=== PATIENT | female | born 1970 | race African-American/Black ===

== ENCOUNTER 2016-06-14 19:36 | Inpatient (IN) | payer OTHER ==
[~2016-06-14] VITALS: Ht 149.9 cm; Wt 55.8 kg
--- NOTE | ~2016-06-14 | S ---
[facility] [place] [address] SURGICAL PATH RPT PROCEDURE Name: CHARIS FISHER Room #: 418-P ADM IN M.R.#: [id number] Admission: 06/16/16 Date of : 72 Discharge: Report #: [id number] Path Case #: [id number] PATHOLOGY REPORT COLLECTION DATE: 06/16/2016 RECEIVED DATE: 06/18/2016 SUBMITTING PHYS: Dr. Paul Abreu OTHER PHYS: Dr. Patrick Martell SPECIMEN(S) RECEIVED: A.Small bowel B.Gastric bx * * * * * * * * * * * * FINAL DIAGNOSIS: A. Small intestine mucosa "small bowel biopsy": - Predominantly duodenal mucosa with prominent Jared's glands. - There is no evidence of acute cryptitis, granulomas, adenomatous change or malignancy. B. Gastric mucosa, "gastric biopsy": - Mild chronic reactive gastropathy. - The immunoperoxidase stain for Helicobacter pylori is negative. (SHA:neida; d/t: 06/21/2016) PATHOLOGIST: Nas Kelsey M.D. REPORT ELECTRONICALLY SIGNED BY: Nas Kelsey M.D. DATE/TIME: 06/21/2016 14:14 * * * * * * * * * * * * GROSS PATHOLOGY: A. Received in formalin labeled "Charis Fisher, small bowel biopsy," are 2 segments of camacho soft tissue measuring 0.6 x 0.4 x 0.2 cm in aggregate dimensions and ranging from 0.4 to 0.5 cm in maximum dimension. The specimen is submitted entirely in cassette A1. B. Received in formalin labeled "Charis Fisher, gastric biopsy," are 2 segments of camacho soft tissue measuring 0.4 x 0.3 x 0.2 cm in aggregate dimensions and ranging from 0.3 to 0.4 cm in maximum dimension. The specimen is submitted entirely in cassette B1. (KAH; 06/18/2016) CLINICAL HISTORY: Pre-op diagnosis: Vomiting Post-op diagnosis: Gastritis [address] [address] SURGICAL PATH RPT PROCEDURE Name: CHARIS FISHER Room #: 418-P ADM IN M.R.#: [id number] Admission: 06/16/16 Date of : 72 Discharge: Report #: [id number] Path Case #: [id number] INITIAL CPT CODE(S): A; 75423 B; 56247, 13993 Professional services performed by [facility] at [address], [place] [address] Technical services performed by [facility] at [address] [place] [address], [facility] [address] [address]. [facility] [address] [place] [address] PHONE: [phone] DIRECTOR: Don Gordon M.D. * * * END OF REPORT * * *
--- NOTE | ~2016-06-14 | EKG ---
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 : 1970 Requested By: Robert Hogan Order Number: [id number] MD: Kevin Stone Measurements Intervals Wisner Rate: 121 P: 59 DC: 139 QRS: 34 QRSD: 85 T: 38 QT: 317 QTc: 450 Interpretive Statements Sinus tachycardia Borderline low voltage, extremity leads Baseline wander in lead(s) V6 Compared to ECG 06/14/2016 20:20:26 No significant changes Electronically Signed On 06-29-2016 8:48:01 CDT by Kevin Stone [email or web address] <ELECTRONICALLY SIGNED> By: Kevin Stone MD, [facility] 06/29/16 0848 8 8 Kevin Stone MD, [facility] /EPI
--- NOTE | ~2016-06-14 | H ---
[facility] [place] [address] HISTORY AND PHYSICAL Name: EVERTON ROMAN [facility]: 426[facility] [id number] Admission: 06/14/16 Attend Phys: Robert Hogan MD Discharge: Date of : 72 Report #: [id number] THIS REPORT FOR: //name// CC: Robert Nguyen [facility] DATE OF SERVICE: 06/15/2016 ATTENDING PHYSICIAN: Robert Hogan M.D. PRIMARY CARE PHYSICIAN: None. CHIEF COMPLAINT: Abdominal pain and back pain. HISTORY OF PRESENT ILLNESS: The patient is a 46-year-old -[place] female who came into the ER complaining of generalized pain and low back pain. This has been going on for about 2 days. She says it feels like a "vice" around her lower back. Her pain got worse today after she went to dialysis. She had not taken her regularly prescribed tramadol and Neurontin today. She says her pain is worse when she stands up and takes a deep breath. She is a diabetic and her blood sugar was 384 at home. She also has known gastroparesis. She denies any vomiting, denies any diarrhea. Denies any recent cough, congestion, fevers or chills. She did complete her dialysis today. She came into the ER with these complaints and was given a dose of Dilaudid as well as Ativan. She is currently somewhat sedated and difficult to keep awake during the assessment. Even though she is very sleepy, she still rates her pain 8/10, and continues to state that this pain is worse than her chronic pain. She was noted in the ER to have elevated potassium and is currently receiving hemodialysis. PAST MEDICAL HISTORY: Diabetes type 1; hypertension; anemia; end-stage renal disease, on hemodialysis on Mondays, Wednesdays and Fridays; peripheral neuropathy and gastroparesis. PAST SURGICAL HISTORY: Fistula placement and bilateral tubal ligation. ALLERGIES: PENICILLIN, ASPIRIN AND IODINE. HOME MEDICATIONS: Robaxin 1 to 2 tabs q.i.d. p.r.n., Lipitor 10 mg daily, carvedilol 12.5 mg b.i.d., amlodipine 5 mg daily, lisinopril 20 mg daily, [facility] 5/325 one tab q. 4 hours p.r.n., tramadol 50 mg q. 6 hours p.r.n., Neurontin 100 mg t.i.d., omeprazole 20 mg daily, Reglan 10 mg a.c. and at bedtime, Levemir insulin 4 units at bedtime and NovoLog insulin 3 units with meals. SOCIAL HISTORY: The patient lives at home with her spouse. She denies any tobacco, alcohol or drug use. [address] [address] HISTORY AND PHYSICAL Name: EVERTON ROMAN Room #: 426-P [facility] M.R.#: [id number] Admission: 06/14/16 Attend Phys: Robert Hogan MD Discharge: Date of : 72 Report #: [id number] FAMILY HISTORY: Positive for diabetes and end-stage renal disease in her mother. REVIEW OF SYSTEMS: At one point, LES inhibitors were listed as an allergy, and it looks like she had an admission here, in which she was treated for what was felt to be angioedema. They thought this was LES inhibitor related, so she was taken off lisinopril; however, when the measuring clerk saw the patient, they did not think angioedema was the case, rather volume overload was considered the possibly etiology. She was dialyzed and her swelling did improve. For some reason, LES inhibitor is still listed as an allergy, but in review her home medications, she has been on lisinopril and states she has not been having any problems. All other 12-point review of systems were reviewed with the patient and otherwise negative unless stated in the HPI. PHYSICAL EXAMINATION: GENERAL: The patient is a very sleepy female in no acute distress. VITAL SIGNS: Temperature 98.4, heart rate 105, respirations 20, blood pressure is 192/122 and oxygen is 99% on 2 liters. HEENT: PERRLA. Sclerae are nonicteric. Oral mucosa is pink and moist. NECK: Supple, no JVD noted. CARDIOVASCULAR: Normal S1 and S2. No murmurs, rubs or gallops. RESPIRATORY: Breath sounds are clear bilaterally. No wheezing or rhonchi. Breathing is nonlabored. ABDOMEN: Soft and nondistended. She was very tender in the epigastric area to palpation. Bowel sounds are positive. VASCULAR: Bilateral ankle edema 1+. Pedal pulses are 2+. NEUROLOGIC: The patient is very sleepy, she arouses easily, but dozes off multiple times throughout the assessment and has difficulty staying awake. She will follow some commands and is able to move all extremities equally. No focal weakness noted. Her fistula has good bruit and thrill. LABORATORY DATA AND DIAGNOSTICS: WBC is 4.7, hemoglobin 11.3 and platelets 296. Sodium 132, potassium 6.9, BUN 32, creatinine 4.4 and glucose 186. Magnesium is 2.4. INR 1.1. AST is 216, ALT is 151 and alkaline phosphatase is 253. Cardiac enzymes are negative. BNP is 4598. EKG showing sinus tachycardia. Chest x-ray showed improved inspiration with moderate clearing of both bases since prior study. There is no acute process. There is a large amount of stool present suggesting constipation. ASSESSMENT AND PLAN: 1. Abdominal pain. The patient does have epigastric tenderness with elevated liver enzymes. There is concern that she may have some gallbladder pathology. We will check an abdominal ultrasound in the morning. She also has severe gastroparesis, maybe some stomach irritation. Continue with Reglan and add Pepcid b.i.d. She is also noted to have constipation per x-ray, and we will provider some MiraLax. [address] [address] HISTORY AND PHYSICAL Name: EVERTON ROMAN Room #: 426-P [facility] Theresa Og#: [id number] Admission: 06/14/16 Attend Phys: Robert Hogan MD Discharge: Date of : 72 Report #: [id number] 2. Hyperkalemia likely due to lisinopril use. We will discontinue lisinopril. She is currently receiving hemodialysis. Follow labs. 3. End-stage renal disease. Continue with hemodialysis per Renal. 4. Diabetes type 1. Add sliding scale insulin. Check blood sugars a.c. and at bedtime. 5. Transaminitis. Check a hepatitis panel and an abdominal ultrasound to further evaluate. 6. Hypertension. Blood pressure is improving with hemodialysis. 7. Deep venous thrombosis prophylaxis, place sequential compression devices. We will continue to follow the patient closely throughout the hospitalization and make changes based on clinical status. <ELECTRONICALLY SIGNED> By: SUSIE Mcgee 06/16/16 0615 0340 0501 SUSIE Mcgee /nt
--- NOTE | ~2016-06-14 | EKG ---
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 : 1970 Requested By: Jim Martell Order Number: [id number] MD: Kevin Stone Measurements Intervals Munger Rate: 103 P: 71 [place]: 146 QRS: 36 QRSD: 81 T: 60 QT: 345 QTc: 452 Interpretive Statements Sinus tachycardia otherwise no significant abnormality Compared to ECG 09/16/2015 11:02:05 Poor R-wave progression no longer present Electronically Signed On 06-15-2016 8:50:32 CDT by Kevin Stone [email or web address] <ELECTRONICALLY SIGNED> By: Kevin Stone MD, [facility] 06/15/16 0850 19 19 Kevin Stone MD, [facility] /EPI
--- NOTE | ~2016-06-14 | S ---
[facility] [place] [address] SURGICAL PATH RPT PROCEDURE Name: CHARIS ROMAN Room #: 240-P ADM IN M.R.#: [id number] Admission: 06/16/16 Date of : 72 Discharge: Report #: [id number] Path Case #: [id number] PATHOLOGY REPORT COLLECTION DATE: 06/25/2016 RECEIVED DATE: 06/25/2016 SUBMITTING PHYS: Dr. Madhavi Vargas OTHER PHYS: Dr. Edison Jones SPECIMEN(S) RECEIVED: A.Liver bx x3 * * * * * * * * * * * * FINAL DIAGNOSIS: Liver, needle core biopsy: - Mild congestion of zone 3 and focal subtle nodular regenerative hyperplasia without atypia. - Collagenization of zone 3 vessels as well as a few sinusoidal spaces. - Mild mixed portal chronic inflammation with rare eosinophils. COMMENT: Overall, the zone 3 congestion identified is suggestive of passive congestion of the liver. Significant atrophic changes are not identified in zone 3. There is mild subtle nodular regenerative hyperplasia without atypia identified. This may be due to the history of type I diabetes, or the congested liver parenchyma. Collagenization of the veins in zone 3 along with the sinusoidal spaces is identified and is compatible with the provided history of type I diabetes as well. Rare glycogenated nuclei are identified scattered within the hepatic parenchyma. There is no evidence of steatosis present. Mild mixed nonspecific portal chronic inflammation with occasional eosinophils is identified. This may be due to multiple medications in use. Bile ductular proliferation is not identified. There is no predominance of plasma cells identified. Concentric biliary duct hypertrophy or florid-duct lesions are not present. Trichrome special stain fails to show significant periportal, or perisinusoidal fibrosis. Reticulin stain shows foci of thickened hepatic plates as well as findings suggestive of focal mild nodular regenerative hyperplasia. Iron stain shows 1-2+ granular staining within the sinusoidal lining cells, consistent with passive congestion. PAS with and without diastase shows collagenization of the vessels as well as Kupffer cell macrophages compatible with ongoing injury. Clinical correlation is suggested. (IUV:csd; d/t: 06/29/2016) [address] [address] SURGICAL PATH RPT PROCEDURE Name: CHARIS ROMAN Room #: 240-P [facility] IN M..#: [id number] Admission: 06/16/16 Date of : 72 Discharge: Report #: [id number] Path Case #: [id number] PATHOLOGIST: Maryann Calzada M.D. REPORT ELECTRONICALLY SIGNED BY: Maryann Calzada M.D. DATE/TIME: 06/29/2016 16:30 * * * * * * * * * * * * GROSS PATHOLOGY: Received in formalin labeled "Charis Tobinbandar, liver biopsy 3," are 3 distinct needle cores of camacho soft tissue ranging from 1.2 to 1.9 cm in length, which are submitted entirely in cassette A1. (KAH; 06/25/2016) CLINICAL HISTORY: Type 1 diabetes, hypertension, end stage renal disease, on hemodialysis several days a week, along with peripheral neuropathy and gastroparesis. Medications include Lipitor, amlodipine amongst others, denies any tobacco, alcohol or drug use, elevated AST, ALT and alk phos along with GGT, BNP elevated, epigastric tenderness noted, hyperkalemia. INITIAL CPT CODE(S): A; 77099, 59017, 38663, 99066, 47120, 512[address] Professional services performed by [facility] at [facility] [address], [place] [address] Technical services performed by [facility] at [address] [place] [address], [address], [place] [address]. [facility] [address] [place] [address] PHONE: [phone] DIRECTOR: Don Gordon M.D. * * * END OF REPORT * * *
--- NOTE | ~2016-06-14 | 2DMMODE ---
[facility] [address] [facility] [place] [address] 2 D/M-MODE ECHOCARDIOGRAM Name: EVERTON ROMAN Room #: 240-P ADM IN M.R.#: [id number] Admission: 06/16/16 Attend Phys: Kentrell Lizarraga Discharge: Date of : 72 Date of Service: 06/29/16 1725 Report #: [id number] THIS REPORT FOR: //name// APPROVED REPORT Study performed: 06/29/2016 14:42:53 EXAM: Comprehensive 2D, Doppler, and color-flow Echocardiogram Patient Location: Bedside Room #: 240 Blood Pressure: 133/98 mmHg HR: 102 bpm Rhythm: Tachycardia Other Information Study Quality: Adequate Indications LV function, PHTN. Hx: end stage renal disease, DM, HTN 2D Dimensions RVDd: 34.58 mm LVEF(%): 55.27 (>50%) IVSd: 10.75 (7-11mm) LVOT Diam: 18.85 (18-24mm) LVDd: 38.74 mm PWd: 11.86 (7-11mm) Ascending Aorta: 24.82 mm LVDs: 27.79 (25-40mm) Aortic Root: 28.55 mm Gotti's LVEF: 55.27 % Volumes Left Atrial Volume (Systole) Single Plane 4CH: 30.65 mL Single Plane 2CH: 45.06 mL LA ESV Index: 26.00 mL/m2 Aortic Valve AoV Peak Robert.: 1.52 m/s AO Peak Gr.: 9.21 mmHg LV Max P.55 mmHg LV Max: 1.07 m/s Mitral Valve E/A Ratio: 1.0 MV Decel. Time: 188.38 ms MV E Max Robert.: 1.05 m/s [facility] [place] [address] 2 D/M-MODE ECHOCARDIOGRAM Name: EVERTON ROMAN Room #: 240-P ADM IN M.R.#: [id number] Admission: 06/16/16 Attend Phys: Kentrell Lizarraga Discharge: Date of : 72 Date of Service: 06/29/16 1725 Report #: [id number] MV A Robert.: 1.00 m/s MV PHT: 54.63 ms Pulmonary Valve PV Peak Robert.: 1.10 m/s PV Peak Gr.: 4.84 mmHg Pulmonary Vein P Vein S: 71.8 m/s P Vein D: 63.7 m/s Tricuspid Valve TR Peak Robert.: 2.36 m/s RAP Estimate: 5.00 mmHg TR Peak Gr.: 22.33 mmHg RVSP: 27.00 mmHg Left Ventricle The left ventricle is normal size. There is normal LV segmental wall motion. Mild concentric left ventricular hypertrophy. Left ventricular systolic function is normal. LVEF is 55-60%. The left ventricular diastolic function is normal. Right Ventricle The right ventricle is normal size. The right ventricular systolic function is normal. Atria The left atrium size is normal. The right atrium size is normal. Aortic Valve The aortic valve is normal in structure. No aortic regurgitation is present. There is no aortic valvular stenosis. Mitral Valve The mitral valve is normal in structure. Trace mitral regurgitation. No evidence of mitral valve stenosis. Tricuspid Valve The tricuspid valve is normal in structure. There is trace tricuspid regurgitation. The right atrial pressure is estimated at 5 mmHg. Estimated pulmonary artery pressure is 27mmHg. Pulmonic Valve The pulmonary valve is normal in structure. Trace pulmonic regurgitation. Great Vessels [facility] [address] [place] [address] 2 D/M-MODE ECHOCARDIOGRAM Name: EVERTON ROMAN Room #: 240-P ADM IN M.R.#: [id number] Admission: 06/16/16 Attend Phys: Kentrell Lizarraga Discharge: Date of : 72 Date of Service: 06/29/16 1725 Report #: [id number] The aortic root is normal in size. The ascending aorta is normal in size. IVC is normal in size and collapses >50% with inspiration. Pericardium There is no pericardial effusion. <Conclusion> The left ventricle is normal size. Mild concentric left ventricular hypertrophy. LVEF is 55-60%. The aortic valve is normal in structure. The mitral valve is normal in structure. Trace mitral regurgitation. There is trace tricuspid regurgitation. The right atrial pressure is estimated at 5 mmHg. Estimated pulmonary artery pressure is 27mmHg. Trace pulmonic regurgitation. <ELECTRONICALLY SIGNED> By: Jude Hernandez MD 06/29/161724 24 24 Jude Hernandez MD /INF
--- NOTE | ~2016-06-14 | HC ---
[facility] [place] [address] CONSULTATION Name: ABELEVERTON Room #: 240-P ADM IN M.R.#: [id number] Admission: 06/16/16 Attend Phys: Robert Hogan MD Discharge: Date of : 72 Report #: [id number] THIS REPORT FOR: //name// CC: Robert Kauffman DATE OF SERVICE: 06/24/2016 CHIEF COMPLAINT: Abdominal pain. HISTORY OF PRESENT ILLNESS: The patient is a 46-year-old -H[place]ian female with extensive past medical history who was admitted recently to [facility]. She has a history of end-stage renal disease on hemodialysis, poorly controlled diabetes mellitus, hypertension, gastroparesis, and peripheral neuropathy. She has been extensively evaluated by gastroenterology and has transaminitis of unclear etiology. She has been on Reglan with some improvement in her gastroparesis. No known history of hepatitis and recent workup for hepatitis was negative. She has had previous admissions for diabetic ketoacidosis. This does not appear to be a problem at this time. She has known history of gallstones. General Surgery was consulted to evaluate whether biliary colic or biliary dyskinesia may be an issue and whether cholecystectomy might be advantageous for the patient. PAST MEDICAL HISTORY: As described above. Positive for hypertension, end-stage renal disease, on hemodialysis; chronic anemia, peripheral neuropathy, gastroparesis, and diabetes. PAST SURGICAL HISTORY: Positive for tubal ligation, left upper extremity AV access for hemodialysis, and EGD on 07/14/2015, showed a normal esophagus, residual food in the stomach, multiple duodenal ulcers, biopsies negative for H. pylori. ALLERGIES: Include LES INHIBITORS, AMOXICILLIN, ASPIRIN, and BETADINE. MEDICATIONS: Include insulin Levemir, NovoLog, tramadol, lisinopril, atorvastatin, gabapentin, Reglan, Coreg, amlodipine, omeprazole, hydrocodone, methocarbamol, heparin IV after dialysis, MiraLax 17 g daily, Clonidine, and lorazepam. REVIEW OF SYSTEMS: GENERAL: Negative for fevers, chills, or unwanted weight loss. HEENT: No diplopia. No visual changes. No dysphagia. CARDIOVASCULAR: No chest pain or palpitation. PULMONARY: No productive cough. No shortness of breath. GASTROINTESTINAL: Positive for abdominal pain in the epigastrium. Negative for nausea or vomiting at this time. MUSCULOSKELETAL: Positive for back pain. NEUROLOGIC: Negative for focal tingling, weakness, or numbness. CUTANEOUS: Negative for skin lesions or rashes. ENDOCRINE: Positive for end-stage renal disease, on hemodialysis and poorly controlled diabetes with [address] [address] CONSULTATION Name: EVERTON ROMAN Room #: [facility] IN M.R.#: [id number] Admission: 06/16/16 Attend Phys: Robert Hogan MD Discharge: Date of : 72 Report #: [id number] recent glucose running in the 500-600 range. HEMATOLOGIC: No spontaneous epistaxis. No easy bruising. PHYSICAL EXAMINATION: GENERAL: The patient is awake, alert and oriented. She is in no acute distress. She does give appropriate history. HEENT: Head is atraumatic and normocephalic. No icterus is appreciated. Pupils are equally round and reactive. Cranial nerves are intact and symmetric. NECK: Supple without any jugular venous distention. SKIN: Clean, dry and intact, well perfused. CARDIOVASCULAR: Regular rate and rhythm. No obvious murmur. LUNGS: Clear to auscultation bilateral. No respiratory distress. ABDOMEN: Soft, nontender to palpation. No rebound or guarding. No Mendes's sign. EXTREMITIES: Without clubbing, cyanosis, or edema. Left upper arm AV fistula or graft with palpable thrill, this has a recent dressing as it was recently intervened by IR. PSYCHIATRIC: Normal mood and affect. NEUROLOGIC: No focal deficits. LABORATORY DATA: Reviewed. Poor glycemic control is noted. LFTs are elevated with an AST of 127, ALT of 229, alk phos of 300, total bilirubin of 0.4, direct bilirubin of 0.2. Creatinine of 2.9, BUN of 35, sodium 131, potassium 4.8, chloride 94, CO2 of 30. Hepatitis panel negative. PIPIDA scan was obtained recently and this demonstrates normal ejection fraction of the gallbladder. No sign of acute cholecystitis. Most recent ejection fraction calculated at 82%. Ultrasound of the abdomen on June 15, showed atrophic echogenic kidneys consistent with end-stage renal disease, gallbladder appeared normal. Bile duct measured 3 mm. Gastric emptying study on 07/12/2015, showed gastroparesis with the 45-minute emptying at 27%. IMPRESSION: 46-year-old -H[place]ian female patient with history of poorly controlled diabetes mellitus, hypertension and other medical problems including end-stage renal disease, on hemodialysis; transaminitis of unclear etiology, gastroenterology is presently investigating this and a liver biopsy is pending. Hepatitis panel has been negative at this point. No sign or symptoms of acute cholecystitis or choledocholithiasis based upon imaging, physical exam and hepatobiliary study, also no sign of biliary dyskinesia. No recommendation for any surgical intervention at this time. Specifically, no indication for cholecystectomy. These findings and recommendations were discussed in detail with the patient and all questions were answered to her satisfaction. Consultation very much appreciated. We will continue to be available for further general surgical questions or concern. <ELECTRONICALLY SIGNED> By: Roc Anthony MD 06/30/16 1137 1159 1355 Roc Anthony MD /nt
--- NOTE | ~2016-06-14 | HC ---
[place] [address] CONSULTATION Name: EVERTON ROMAN Room #: 240-P ADM IN M.R.#: [id number] Admission: 06/16/16 Attend Phys: Robert Hogan MD Discharge: Date of : 72 Report #: [id number] THIS REPORT FOR: //name// CC: Robert Kauffman REASON FOR CONSULTATION: Acute respiratory failure. IMPRESSION: 1. Pulmonary infiltrates and infusion. Question volume overload, question reaction. 2. Hypoxemic respiratory failure. 3. Joyce-hepatic hematoma. 4. Recurrent hyperkalemia. 5. Elevated LFTs. 6. Hyponatremia. 7. Anemia. 8. Gastroparesis. 9. Clostridium difficile. 10. End-stage renal disease. 11. Diabetes. 12. Hypertension. 13. Recent transfusion. PLAN: We will monitor oxygenation, supportive care. May require BiPAP. We will try levalbuterol with her increased heart rate. We discussed this with renal. They have done a CT PE protocol, which was negative. We will do venous Dopplers as she has had peripheral edema and has been off of Lovenox secondary to hematoma. HISTORY OF PRESENT ILLNESS: This is a very pleasant 46-year-old female admitted on 06/14 with acute hyperkalemia, has had dialysis, has had elevated LFTs, had a recent biopsy, path pending; however, developed a perihepatic hematoma, required transfusion and surgical consultation. This a.m., had increasing shortness of breath and bilateral infiltrates. No fever or chills. No hemoptysis, no discolored sputum. When seen, she was on 8 liters and was eating breakfast and seemed comfortable. She denied any definite chest pain. CURRENT MEDICATIONS: Include Coreg, vancomycin p.o., Tylenol, Kionex, Protonix, Reglan, Phenergan, gabapentin and Tramadol. FAMILY HISTORY: Positive for diabetes, end-stage renal disease. No history of DVT or PE. SOCIAL HISTORY: Negative tobacco or ETOH. No drugs of abuse. ALLERGIES: Allergic to ASPIRIN, AMOXICILLIN and BETADINE. [address] [place] [address] CONSULTATION Name: EVERTON ROMAN Room #: 240-P [facility] IN M.R.#: [id number] Admission: 06/16/16 Attend Phys: Robert Hogan MD Discharge: Date of : 72 Report #: [id number] REVIEW OF SYSTEMS: Positive shortness breath. No hemoptysis, hematemesis or blood in stool. No chest pain. Positive shortness of breath. Positive peripheral edema. Initially had nausea and vomiting, none current. She relates she has been anxious. PHYSICAL EXAMINATION: VITAL SIGNS: T-max 99.4, pulse 125, BP 133/98 and respiratory rate 17. EYES: Negative icterus. NECK: Negative JVD. LUNGS: Showed crackles bilaterally. HEART: Tachy. ABDOMEN: Bowel sounds present. EXTREMITIES: Showed positive edema. No calf tenderness. NEUROLOGIC: Alert, oriented, moved all extremities. CT PE, showed bilateral infiltrates and small effusions. A pH of 7.379, pCO2 of 45 and pO2 of 40 on 8 liters. BUN 53, creatinine 4.1, sodium 129 and potassium 5.4. White count 12, hemoglobin 10.6 and platelets 289,000. We will follow closely with you. <ELECTRONICALLY SIGNED> By: Dolly Reece MD 06/29/16 1352 1112 1350 Dolly Reece MD /nt
--- NOTE | ~2016-06-14 | HC ---
[facility] [place] [address] CONSULTATION Name: EVERTON ROMAN [id number] Admission: 06/14/16 Attend Phys: Robert Hogan MD Discharge: Date of : 72 Report #: [id number] THIS REPORT FOR: //name// CC: Robert Kauffman NEPHROLOGY CONSULTATION ATTENDING PHYSICIAN: Robert Hogan M.D. REASON FOR CONSULTATION: Hyperkalemia in a dialysis patient. HISTORY OF PRESENT ILLNESS: The patient is well known to our service, long-standing diabetes with triopathy, on dialysis over the last year or so. She has had long-standing difficult diabetes with difficult blood sugar control and poorly controlled diabetes. She has severe peripheral neuropathy as a result. The patient has recently had trouble with cramping and pain after dialysis. She has also had unusual postprandial sweating and also swelling in the back of her legs, which has been rather severe and of relatively recent onset. After dialysis, she developed cramping and severe muscular diffuse pains and very anxious and fearful and came to the emergency room. Her potassium was 6.5, even though she dialyzed today, although her CPK was not elevated. PAST MEDICAL HISTORY: Long-standing diabetes, difficult with hypertension; severe gastroparesis; triopathy and very difficult peripheral neuropathy. FAMILY HISTORY: Positive for diabetes and end-stage renal disease. SOCIAL HISTORY: , living in . REVIEW OF SYSTEMS: GENERAL: She has been having a lot of trouble right after dialysis otherwise, but doing okay. EYES: Vision adequate with corrective lenses. ENT: Hearing okay and swallows okay. Denies any mouth sores or ulcers. ENDOCRINE: Positive for the diabetes. RESPIRATORY: Denies shortness of breath or pleuritic pain. CARDIAC: Really not having any chest discomfort. No arrhythmias. GASTROINTESTINAL: She intermittently has nausea, vomiting and occasionally diarrhea. GENITOURINARY: Decreased urine. NEUROLOGIC: Peripheral neuropathy with decreased sensation in distal lower extremities. PSYCHIATRIC: Quite a bit of anxiety and depression. [facility] [address] [place] [address] CONSULTATION Name: EVERTON ROMAN Room #: 426-P [facility].Chandrika#: [id number] Admission: 06/14/16 Attend Phys: Robert Hogan MD Discharge: Date of : 72 Report #: [id number] HOME MEDICATIONS: Please see chart. PHYSICAL EXAMINATION: VITAL SIGNS: This is a somewhat ill-appearing woman, who is now calmed down after receiving her both Dilaudid and Ativan. SKIN: Unremarkable, except for swelling behind the legs, up the legs and in the posterior areas. SKELETAL: Thin. HEENT: Extraocular movements are full. Vision intact. No scleral icterus. Mucous membranes moist. NECK: Supple. No lymphadenopathy. CHEST: Clear to auscultation. HEART: Regular, without murmurs, gallops or rubs. ABDOMEN: Soft and nontender. EXTREMITIES: Show a left arm fistula with good bruit and thrill. NEUROLOGIC: Shows numbness in her feet. LABORATORY DATA: Hemoglobin is 11.3. Sodium 132; potassium 6.9 initially, then 6.5; chloride 95; bicarbonate 31; BUN 32; creatinine 4.4 and calcium 7.9. Albumin is 3.1. ASSESSMENT AND PLAN: 1. Acute hyperkalemia, unknown etiology. I cannot come up with a firm idea. Apparently did not eat much today. Blood sugar was a little bit elevated, but on the 6.5 that I am looking at, glucose is only 186. Acute dialysis appears to be indicated as her potassium is going up and could go up even higher, even though she does not have any severe hyperkalemic rhythm at the current time. We will order a 3-hour dialysis, get that done, and re-evaluate in the morning these other symptoms of muscle pain, cramps, anxiety, etc. 2. Diabetes mellitus with triopathy. 3. End-stage renal disease, on dialysis. 4. Severe gastroparesis. By: [id number] Tyrese Escobedo MD /nt
[~2016-06-14 19:36] MED LIST: ACETAMINOPHEN325 M1 PO; AMLODIPINE BESY10 MG PO; AUGMENTIN 875875 M1 PO; BENGAY ULTRA S113 GM TOP; CEFTIN 250 MG250 MG PO; CELEBREX 200 M200 M1 PO; CIPRO250 M1 PO; COREG12.5 MG PO; COREG25 MG PO; CYCLOBENZAPRINE5 MG PO; DEMADEX20 MG PO; HEPARIN 50500 UNIT/5 IV; HUMALOG100 UNIT/1 SUBQ; HUMULIN 70100 UNIT/2 SUBQ; HYOSCYAMINE0.125 M1 PO; LANTUS100 UNIT/M SUBQ; LASIX 20 MG TAB20 MG PO; LEVEMIR SUBQ; LIDODERM 5%1 PATC1 TRANSDERM; LISINOPRIL10 MG PO; LISINOPRIL20 MG PO; LISINOPRIL5 MG PO; MIDODRINE HCL 55 M1 PO; MIDODRINE HCL2.5 M1 PO; NEURONTIN 300300 M1 PO; NOVOLIN R100 UNIT/1; NOVOLIN R100 UNIT/3; NOVOLOG MI100 UNIT/2; NOVOLOG100 UNIT/1 SQ; NOVOLOG100 UNIT/1 SUBQ; NYSTATIN 1100000 U/M SW&SWALLOW; PROTONIX40 M2 PO; REGLAN 10 MG TA10 M1 PO; REMERON15 MG PO; TRAMADOL 50 MG50 MG PO; TYLENOL325 MG PO; [UNRECOGNIZED DRUG - CODE] SUBQ
[2016-06-14 19:38] VITALS: BP 192/122
[2016-06-14] MEDS ORDERED: LIPITOR10 MG PO (19:40)
[2016-06-14] MEDS ORDERED: LISINOPRIL20 MG PO (19:40)
[2016-06-14] MEDS ORDERED: NOVOLOG FL100 UNIT/M SC (19:40)
[2016-06-14] MEDS ORDERED: GABAPENTIN 100100 MG PO (19:41)
[2016-06-14] MEDS ORDERED: REGLAN 10 MG TA10 MG PO (19:41)
[2016-06-14] MEDS ORDERED: NORVASC5 MG PO (19:41)
[2016-06-14] MEDS ORDERED: CARVEDILOL12.5 MG PO (19:41)
[2016-06-14] MEDS ORDERED: OMEPRAZOLE 20 M20 M1 PO (19:42)
[2016-06-14 21:21] LABS: ABSOLUTE NEUTROPHILS 2.7 thou/uL (1.4-8.2); BASOPHILS 1.1 % (0.0-2.0); EOSINOPHILS 1.8 % (0.0-3.0); HEMATOCRIT 33.8 % (37.0-47.0); HEMOGLOBIN 11.3 gm/dL (12.0-15.0); LYMPHOCYTES 30.5 % (24.0-44.0); MCH 32.4 pg (26.0-34.0); MCHC 33.5 g/dL (28.0-37.0); MCV 96.7 fL (80.0-100.0); MONOCYTES 9.6 % (1.0-8.0); PLATELET COUNT 296 thou/uL (150-400); RBC 3.49 mil/uL (4.20-5.00); RDW 15.3 % (10.5-14.5); WBC 4.7 thou/uL (4.0-11.0)
[2016-06-14 21:27] LABS: MANUAL DIFF NO
[2016-06-14 21:36] LABS: APTT 23.8 Seconds (24.5-32.8); INR 1.1; PROTIME 11.6 Seconds (9.3-11.4)
[2016-06-14 21:45] LABS: ALBUMIN 3.1 g/dL (3.4-5.0); ALKALINE PHOSPHATASE 253 U/L (46-116); ANION GAP 6 mmol/L (7-16); BUN 32 mg/dL (7-18); CALCIUM 7.9 mg/dL (8.5-10.1); CHLORIDE 95 mmol/L (98-107); CO2 31 mmol/L (21-32); CREATININE 4.4 mg/dL (0.6-1.0); GLUCOSE 186 mg/dL (74-106); MAGNESIUM 2.4 mg/dL (1.8-2.4); NT-PRO BRAIN NAT PEPTIDE 4596 pg/mL (<300); SGOT 216 U/L (15-37); SGPT 151 U/L (30-65); SODIUM 132 mmol/L (136-145); TOTAL BILIRUBIN 0.6 mg/dL (<0.1-1.0); TOTAL PROTEIN 6.7 g/dL (6.4-8.2); TROPONIN-I < 0.04 ng/mL (<0.04-0.07)
[2016-06-14 21:48] LABS: POTASSIUM 6.9 mmol/L (3.5-5.1)
[2016-06-14] MEDS ORDERED: NORCO 5-325 TA1 EACH PO (22:07)
[2016-06-14] MEDS ORDERED: ROBAXIN500 MG PO (22:07)
[2016-06-14 22:34] LABS: POTASSIUM 6.5 mmol/L (3.5-5.1)
[2016-06-14 23:40] VITALS: BP 126/84
[2016-06-15] VITALS: BP 168/110
[2016-06-15] MEDS ORDERED: NOVOLOG100 UNIT/1 SUBQ (02:09)
[2016-06-15] MEDS ORDERED: LEVEMIR SUBQ (02:09)
[2016-06-15 05:39] VITALS: BP 167/95
[2016-06-15 06:51] LABS: ALBUMIN 2.9 g/dL (3.4-5.0); CALCIUM 7.9 mg/dL (8.5-10.1)
[2016-06-15 06:52] LABS: CREATININE 2.5 mg/dL (0.6-1.0); POTASSIUM 4.2 mmol/L (3.5-5.1)
[2016-06-15 07:26] VITALS: BP 184/101
[2016-06-15 15:20] VITALS: BP 131/81
[2016-06-15 20:30] VITALS: BP 107/72
[2016-06-16 04:30] VITALS: BP 147/93
[2016-06-16 05:49] LABS: ALBUMIN 2.8 g/dL (3.4-5.0); CALCIUM 7.8 mg/dL (8.5-10.1); PHOSPHORUS 5.2 mg/dL (2.5-4.9)
[2016-06-16 05:53] LABS: CREATININE 4.7 mg/dL (0.6-1.0); POTASSIUM 5.2 mmol/L (3.5-5.1)
[2016-06-16 09:42] VITALS: BP 139/85
[2016-06-16 11:40] LABS: ALBUMIN 2.8 g/dL (3.4-5.0); ALKALINE PHOSPHATASE 255 U/L (46-116); DIRECT BILIRUBIN < 0.1 mg/dL (<0.1-0.3); SGOT 100 U/L (15-37); SGPT 120 U/L (30-65); TOTAL BILIRUBIN 0.3 mg/dL (<0.1-1.0); TOTAL PROTEIN 5.8 g/dL (6.4-8.2)
[2016-06-16 12:07] LABS: % SATURATION 19 % (20-39); IRON 40 ug/dL (50-170); TIBC 212 ug/dL (250-450); UIBC 172 ug/dL
[2016-06-16 15:53] VITALS: BP 129/77
[2016-06-16 20:00] VITALS: BP 102/68
[2016-06-17 04:00] VITALS: BP 129/84
[2016-06-17 06:09] LABS: HEMATOCRIT 29.9 % (37.0-47.0); HEMOGLOBIN 9.9 gm/dL (12.0-15.0); MCH 32.5 pg (26.0-34.0); MCV 98.6 fL (80.0-100.0); RBC 3.03 mil/uL (4.20-5.00); RDW 14.7 % (10.5-14.5)
[2016-06-17 06:20] LABS: CALCIUM 7.8 mg/dL (8.5-10.1)
[2016-06-17 06:26] LABS: ALBUMIN 2.7 g/dL (3.4-5.0); DIRECT BILIRUBIN 0.1 mg/dL (<0.1-0.3); TOTAL BILIRUBIN 0.3 mg/dL (<0.1-1.0); TOTAL PROTEIN 5.3 g/dL (6.4-8.2)
[2016-06-17 06:33] LABS: CREATININE 3.4 mg/dL (0.6-1.0)
[2016-06-17 06:34] LABS: POTASSIUM 6.4 mmol/L (3.5-5.1)
[2016-06-17 07:24] VITALS: BP 148/97
[2016-06-17 12:10] LABS: CERULOPLASMIN 25.3 mg/dL (19.0-39.0)
[2016-06-17 15:37] VITALS: BP 103/60
[2016-06-17 20:00] VITALS: BP 128/62
[2016-06-18 04:00] VITALS: BP 143/86
[2016-06-18 06:16] LABS: HEMATOCRIT 27.5 % (37.0-47.0); MCH 32.6 pg (26.0-34.0); MCHC 32.8 g/dL (28.0-37.0); MCV 99.4 fL (80.0-100.0); RBC 2.77 mil/uL (4.20-5.00); WBC 5.1 thou/uL (4.0-11.0)
[2016-06-18 06:27] LABS: ALBUMIN 2.6 g/dL (3.4-5.0); CALCIUM 7.9 mg/dL (8.5-10.1); CREATININE 3.3 mg/dL (0.6-1.0); PHOSPHORUS 3.5 mg/dL (2.5-4.9)
[2016-06-18 06:34] LABS: POTASSIUM 6.2 mmol/L (3.5-5.1)
[2016-06-18 08:30] VITALS: BP 140/85
[2016-06-18 15:32] VITALS: BP 165/103
[2016-06-18 19:49] VITALS: BP 131/76
[2016-06-19 04:02] VITALS: BP 146/89
[2016-06-19 05:36] LABS: ALBUMIN 2.6 g/dL (3.4-5.0); CALCIUM 7.3 mg/dL (8.5-10.1); CREATININE 2.9 mg/dL (0.6-1.0)
[2016-06-19 05:43] LABS: POTASSIUM 5.3 mmol/L (3.5-5.1)
[2016-06-19 07:35] VITALS: BP 170/103
[2016-06-19 16:06] VITALS: BP 144/93
[2016-06-19 20:30] VITALS: BP 130/84
[2016-06-20 04:30] VITALS: BP 130/89
[2016-06-20 06:05] LABS: ABSOLUTE NEUTROPHILS 1.3 thou/uL (1.4-8.2); EOSINOPHILS 8.1 % (0.0-3.0); HEMATOCRIT 25.3 % (37.0-47.0); HEMOGLOBIN 8.4 gm/dL (12.0-15.0); LYMPHOCYTES 50.1 % (24.0-44.0); MCH 32.7 pg (26.0-34.0); MCHC 33.3 g/dL (28.0-37.0); MCV 98.1 fL (80.0-100.0); PLATELET COUNT 177 thou/uL (150-400); POLYS 32.8 % (36.0-66.0); RBC 2.57 mil/uL (4.20-5.00); RDW 14.6 % (10.5-14.5)
[2016-06-20 06:10] LABS: MANUAL DIFF NO
[2016-06-20 06:23] LABS: ALBUMIN 2.6 g/dL (3.4-5.0); CALCIUM 7.7 mg/dL (8.5-10.1); DIRECT BILIRUBIN 0.1 mg/dL (<0.1-0.3); PHOSPHORUS 4.7 mg/dL (2.5-4.9); POTASSIUM 3.9 mmol/L (3.5-5.1); TOTAL BILIRUBIN 0.4 mg/dL (<0.1-1.0); TOTAL PROTEIN 5.9 g/dL (6.4-8.2)
[2016-06-20 07:20] VITALS: BP 132/91
[2016-06-20 16:26] VITALS: BP 121/76
[2016-06-20 18:03] LABS: ALBUMIN 2.9 g/dL (3.4-5.0); CALCIUM 6.9 mg/dL (8.5-10.1)
[2016-06-20 18:13] LABS: POTASSIUM 6.1 mmol/L (3.5-5.1)
[2016-06-20 19:35] VITALS: BP 142/95
[2016-06-21 04:00] VITALS: BP 123/79
[2016-06-21 05:31] LABS: HEMATOCRIT 27.4 % (37.0-47.0); HEMOGLOBIN 9.1 gm/dL (12.0-15.0); MCH 32.7 pg (26.0-34.0); MCHC 33.2 g/dL (28.0-37.0); MCV 98.7 fL (80.0-100.0); RBC 2.77 mil/uL (4.20-5.00); RDW 14.9 % (10.5-14.5); WBC 3.1 thou/uL (4.0-11.0)
[2016-06-21 05:54] LABS: ALBUMIN 2.7 g/dL (3.4-5.0); CALCIUM 7.6 mg/dL (8.5-10.1); DIRECT BILIRUBIN 0.2 mg/dL (<0.1-0.3); PHOSPHORUS 3.2 mg/dL (2.5-4.9); TOTAL BILIRUBIN 0.6 mg/dL (<0.1-1.0); TOTAL PROTEIN 6.2 g/dL (6.4-8.2)
[2016-06-21 06:05] LABS: CREATININE 2.5 mg/dL (0.6-1.0); POTASSIUM 3.3 mmol/L (3.5-5.1)
[2016-06-21 07:31] VITALS: BP 137/95
[2016-06-21 14:53] VITALS: BP 108/68
[2016-06-21 20:00] VITALS: BP 142/89
[2016-06-22 03:23] VITALS: BP 111/72
[2016-06-22 05:58] LABS: ABSOLUTE NEUTROPHILS 1.8 thou/uL (1.4-8.2); BASOPHILS 1.4 % (0.0-2.0); EOSINOPHILS 8.9 % (0.0-3.0); HEMATOCRIT 24.1 % (37.0-47.0); LYMPHOCYTES 38.2 % (24.0-44.0); MCH 32.6 pg (26.0-34.0); MCHC 33.2 g/dL (28.0-37.0); MCV 98.4 fL (80.0-100.0); MONOCYTES 10.7 % (1.0-8.0); PLATELET COUNT 159 thou/uL (150-400); POLYS 40.8 % (36.0-66.0); RBC 2.45 mil/uL (4.20-5.00); RDW 15.1 % (10.5-14.5); WBC 4.4 thou/uL (4.0-11.0)
[2016-06-22 06:14] LABS: MANUAL DIFF NO
[2016-06-22 06:27] LABS: ALBUMIN 2.6 g/dL (3.4-5.0); CALCIUM 7.9 mg/dL (8.5-10.1); CREATININE 2.3 mg/dL (0.6-1.0); POTASSIUM 4.6 mmol/L (3.5-5.1); TOTAL BILIRUBIN 0.6 mg/dL (<0.1-1.0); TOTAL PROTEIN 5.8 g/dL (6.4-8.2)
[2016-06-22 07:12] VITALS: BP 135/90
[2016-06-22 11:57] VITALS: BP 124/75
[2016-06-22 16:06] VITALS: BP 177/88
[2016-06-22 20:30] VITALS: BP 135/55
[2016-06-23] VITALS: BP 130/78
[2016-06-23 01:30] LABS: ALBUMIN 2.7 g/dL (3.4-5.0); CALCIUM 8.1 mg/dL (8.5-10.1); CREATININE 3.1 mg/dL (0.6-1.0); POTASSIUM 5.3 mmol/L (3.5-5.1); TOTAL BILIRUBIN 0.8 mg/dL (<0.1-1.0); TOTAL PROTEIN 5.6 g/dL (6.4-8.2)
[2016-06-23 04:50] VITALS: BP 142/80
[2016-06-23 15:13] VITALS: BP 173/101
[2016-06-23 20:00] VITALS: BP 153/94
[2016-06-24 04:00] VITALS: BP 138/87
[2016-06-24 05:47] LABS: ALBUMIN 2.6 g/dL (3.4-5.0); CALCIUM 7.5 mg/dL (8.5-10.1); CREATININE 2.9 mg/dL (0.6-1.0); POTASSIUM 4.8 mmol/L (3.5-5.1); TOTAL BILIRUBIN 0.4 mg/dL (<0.1-1.0); TOTAL PROTEIN 5.6 g/dL (6.4-8.2)
[2016-06-24 07:18] LABS: ALBUMIN 2.7 g/dL (3.4-5.0); DIRECT BILIRUBIN 0.2 mg/dL (<0.1-0.3); TOTAL BILIRUBIN 0.4 mg/dL (<0.1-1.0); TOTAL PROTEIN 5.7 g/dL (6.4-8.2)
[2016-06-24 07:33] VITALS: BP 138/85
[2016-06-24 10:36] LABS: HEPATITIS C VIRUS AB <0.1
[2016-06-24 16:15] VITALS: BP 105/72
[2016-06-24 20:00] VITALS: BP 117/78
[2016-06-25] VITALS (10 sets, daily range): BP systolic 92–147; BP diastolic 55–87
[2016-06-25 04:17] LABS: ALBUMIN 2.7 g/dL (3.4-5.0); CALCIUM 7.6 mg/dL (8.5-10.1); POTASSIUM 5.4 mmol/L (3.5-5.1); TOTAL BILIRUBIN 0.4 mg/dL (<0.1-1.0); TOTAL PROTEIN 5.8 g/dL (6.4-8.2)
[2016-06-25 04:19] LABS: CREATININE 4.3 mg/dL (0.6-1.0)
[2016-06-26 03:08] VITALS: BP 93/58
[2016-06-26 04:19] LABS: RBC 1.8 mil/uL (4.20-5.00)
[2016-06-26 04:21] LABS: MCH 32.6 pg (26.0-34.0); MCHC 33.5 g/dL (28.0-37.0); MCV 97.4 fL (80.0-100.0); RDW 14.5 % (10.5-14.5); WBC 6.6 thou/uL (4.0-11.0)
[2016-06-26 04:36] LABS: ALBUMIN 2.6 g/dL (3.4-5.0); CALCIUM 7.2 mg/dL (8.5-10.1); POTASSIUM 4.7 mmol/L (3.5-5.1); TOTAL BILIRUBIN 0.4 mg/dL (<0.1-1.0); TOTAL PROTEIN 5.2 g/dL (6.4-8.2)
[2016-06-26 04:37] LABS: CREATININE 3.1 mg/dL (0.6-1.0)
[2016-06-26 04:57] LABS: HEMATOCRIT 17.5 % (37.0-47.0); HEMOGLOBIN 5.9 gm/dL (12.0-15.0)
[2016-06-26 07:01] VITALS: BP 101/61
[2016-06-26 09:12] VITALS: BP 123/75; BP 94/53
[2016-06-26 11:47] LABS: HEMATOCRIT 21.7 % (37.0-47.0); HEMOGLOBIN 7.4 gm/dL (12.0-15.0)
[2016-06-26 12:07] LABS: ALBUMIN 2.7 g/dL (3.4-5.0); CALCIUM 7.6 mg/dL (8.5-10.1); CREATININE 3.6 mg/dL (0.6-1.0); PHOSPHORUS 5.2 mg/dL (2.5-4.9); POTASSIUM 5.3 mmol/L (3.5-5.1)
[2016-06-26 13:39] LABS: HEMATOCRIT 20.8 % (37.0-47.0)
[2016-06-26 16:16] VITALS: BP 104/60
[2016-06-26 19:11] VITALS: BP 107/65
[2016-06-27 04:26] LABS: MCH 31.4 pg (26.0-34.0); MCHC 33.5 g/dL (28.0-37.0); MCV 93.7 fL (80.0-100.0); RBC 2.08 mil/uL (4.20-5.00); RDW 15.8 % (10.5-14.5); WBC 8.1 thou/uL (4.0-11.0)
[2016-06-27 04:30] VITALS: BP 128/75
[2016-06-27 04:30] LABS: ALBUMIN 2.7 g/dL (3.4-5.0); CALCIUM 7.2 mg/dL (8.5-10.1); PHOSPHORUS 5.5 mg/dL (2.5-4.9); POTASSIUM 4.5 mmol/L (3.5-5.1)
[2016-06-27 04:31] LABS: HEMATOCRIT 19.5 % (37.0-47.0); HEMOGLOBIN 6.5 gm/dL (12.0-15.0)
[2016-06-27 04:37] LABS: CREATININE 4.6 mg/dL (0.6-1.0)
[2016-06-27 07:42] VITALS: BP 136/81
[2016-06-27 16:05] VITALS: BP 134/84
[2016-06-27 19:03] VITALS: BP 122/76
[2016-06-28 05:28] VITALS: BP 102/57
[2016-06-28 05:29] LABS: WBC 6.8 thou/uL (4.0-11.0)
[2016-06-28 05:31] LABS: HEMATOCRIT 20.2 % (37.0-47.0); MCH 31.8 pg (26.0-34.0); MCHC 33.7 g/dL (28.0-37.0); MCV 94.4 fL (80.0-100.0); RBC 2.14 mil/uL (4.20-5.00)
[2016-06-28 05:45] LABS: ALBUMIN 2.8 g/dL (3.4-5.0); CALCIUM 6.3 mg/dL (8.5-10.1); CREATININE 6.5 mg/dL (0.6-1.0); HEMOGLOBIN 6.8 gm/dL (12.0-15.0); PHOSPHORUS 7.3 mg/dL (2.5-4.9); POTASSIUM 5.2 mmol/L (3.5-5.1)
[2016-06-28 09:02] VITALS: BP 128/79
[2016-06-28 10:54] VITALS: BP 146/87; BP 155/78
[2016-06-28 11:03] VITALS: BP 153/86; BP 154/84
[2016-06-28 15:58] VITALS: BP 136/82
[2016-06-28 20:42] VITALS: BP 124/85
[2016-06-29] VITALS (9 sets, daily range): BP systolic 107–192; BP diastolic 65–112
[2016-06-29 05:31] LABS: ABSOLUTE NEUTROPHILS 8.9 thou/uL (1.4-8.2); BASOPHILS 0.8 % (0.0-2.0); EOSINOPHILS 7.5 % (0.0-3.0); HEMATOCRIT 31.5 % (37.0-47.0); LYMPHOCYTES 10.7 % (24.0-44.0); MCH 30.5 pg (26.0-34.0); MCHC 33.5 g/dL (28.0-37.0); MCV 90.9 fL (80.0-100.0); MONOCYTES 7.7 % (1.0-8.0); PLATELET COUNT 289 thou/uL (150-400); POLYS 73.3 % (36.0-66.0); RBC 3.47 mil/uL (4.20-5.00); RDW 15.6 % (10.5-14.5); WBC 12.2 thou/uL (4.0-11.0)
[2016-06-29 05:39] LABS: HEMOGLOBIN 10.6 gm/dL (12.0-15.0)
[2016-06-29 05:40] LABS: MANUAL DIFF NO
[2016-06-29 05:48] LABS: ALBUMIN 2.8 g/dL (3.4-5.0); CALCIUM 7.8 mg/dL (8.5-10.1); PHOSPHORUS 5.3 mg/dL (2.5-4.9); POTASSIUM 5.4 mmol/L (3.5-5.1)
[2016-06-29 05:59] LABS: CREATININE 4.1 mg/dL (0.6-1.0)
[2016-06-29 07:24] LABS: ABG SAMPLE TYPE ARTERIAL; BE(vivo) 0.8 mmol/L (-2 to +3); HCO3 26.3 mmol/L (22.0-26.0); LACTATE 1.22 mmol/L (0.5-2.0); PCO2 45.5 mmHg (35.0-45.0); pH 7.379 (7.360-7.450); sO2 73.4 % (92.0-98.0); tCO2 27.6 mmol/L (24.0-30.0)
[2016-06-29 07:25] LABS: O2Hb 71.5 % (92.0-98.0); PO2 39.8 mmHg (80.0-100.0)
[2016-06-29 07:26] LABS: STICK SITE R.RADIAL
[2016-06-30] VITALS (27 sets, daily range): BP systolic 118–171; BP diastolic 75–100
[2016-06-30 03:44] LABS: HEMATOCRIT 28.8 % (37.0-47.0); HEMOGLOBIN 9.8 gm/dL (12.0-15.0); MCH 31.4 pg (26.0-34.0); MCHC 33.9 g/dL (28.0-37.0); MCV 92.5 fL (80.0-100.0); RBC 3.11 mil/uL (4.20-5.00); RDW 15.6 % (10.5-14.5); WBC 10.5 thou/uL (4.0-11.0)
[2016-06-30 04:08] LABS: CREATININE 4.7 mg/dL (0.6-1.0); POTASSIUM 4.8 mmol/L (3.5-5.1)
[2016-06-30 04:12] LABS: ALBUMIN 2.5 g/dL (3.4-5.0); DIRECT BILIRUBIN 0.1 mg/dL (<0.1-0.3); TOTAL BILIRUBIN 0.4 mg/dL (<0.1-1.0); TOTAL PROTEIN 6.4 g/dL (6.4-8.2)
[2016-07-01 04:42] VITALS: BP 130/75
[2016-07-01 07:11] LABS: HEMATOCRIT 29.8 % (37.0-47.0); HEMOGLOBIN 10.1 gm/dL (12.0-15.0); MCH 31.5 pg (26.0-34.0); MCHC 33.9 g/dL (28.0-37.0); MCV 92.7 fL (80.0-100.0); RBC 3.21 mil/uL (4.20-5.00); RDW 14.9 % (10.5-14.5); WBC 9.3 thou/uL (4.0-11.0)
[2016-07-01 07:27] LABS: CREATININE 3.8 mg/dL (0.6-1.0); POTASSIUM 4.5 mmol/L (3.5-5.1)
[2016-07-01 07:56] VITALS: BP 154/89
[2016-07-01 20:00] VITALS: BP 120/73
[2016-07-02 05:11] VITALS: BP 119/75
[2016-07-02 06:55] LABS: ALBUMIN 2.7 g/dL (3.4-5.0); DIRECT BILIRUBIN 0.1 mg/dL (<0.1-0.3); TOTAL BILIRUBIN 0.4 mg/dL (<0.1-1.0); TOTAL PROTEIN 6.5 g/dL (6.4-8.2)
[2016-07-02 19:28] VITALS: BP 158/93
[2016-07-03 04:14] VITALS: BP 148/88
[2016-07-03 07:17] VITALS: BP 140/83
[2016-07-03 10:21] LABS: HEMATOCRIT 33.1 % (37.0-47.0); HEMOGLOBIN 10.9 gm/dL (12.0-15.0); MCH 30.5 pg (26.0-34.0); MCHC 32.9 g/dL (28.0-37.0); MCV 92.8 fL (80.0-100.0); RBC 3.57 mil/uL (4.20-5.00); RDW 14.7 % (10.5-14.5); WBC 9.1 thou/uL (4.0-11.0)
[2016-07-03 10:26] LABS: ALBUMIN 3.1 g/dL (3.4-5.0); CALCIUM 8.9 mg/dL (8.5-10.1); PHOSPHORUS 5.2 mg/dL (2.5-4.9); POTASSIUM 4.5 mmol/L (3.5-5.1)
[2016-07-03 11:59] VITALS: BP 149/86
[2016-07-03 15:54] VITALS: BP 122/70
[2016-07-03 21:05] VITALS: BP 164/95
[2016-07-04 01:00] VITALS: BP 126/76
[2016-07-04 04:57] LABS: HEMATOCRIT 28.9 % (37.0-47.0); HEMOGLOBIN 9.7 gm/dL (12.0-15.0); MCH 30.9 pg (26.0-34.0); MCHC 33.6 g/dL (28.0-37.0); RBC 3.14 mil/uL (4.20-5.00); RDW 14.5 % (10.5-14.5); WBC 9.2 thou/uL (4.0-11.0)
[2016-07-04 05:14] LABS: ALBUMIN 2.9 g/dL (3.4-5.0); CALCIUM 8.7 mg/dL (8.5-10.1); POTASSIUM 4.3 mmol/L (3.5-5.1); TOTAL BILIRUBIN 0.5 mg/dL (<0.1-1.0); TOTAL PROTEIN 6.3 g/dL (6.4-8.2)
[2016-07-04 05:15] VITALS: BP 170/79
[2016-07-04 05:15] LABS: CREATININE 2.7 mg/dL (0.6-1.0)
[2016-07-04 08:24] VITALS: BP 121/78
[2016-07-04 12:12] VITALS: BP 134/76
[2016-07-04 15:26] VITALS: BP 129/81
[2016-07-04 20:30] VITALS: BP 128/67
[2016-07-05 05:10] VITALS: BP 135/86
[2016-07-05] MEDS ORDERED: PHENERGAN 25 MG25 M1 PO (13:13)
[2016-07-05] MEDS ORDERED: VANCOMYCIN100 MG/ML PO (13:13)
[2016-07-05] MEDS ORDERED: BENTYL 20 MG TA20 M1 PO (13:14)
[2016-07-05] MEDS ORDERED: CARVEDILOL6.25 MG PO (13:14)
[2016-07-05] MEDS ORDERED: MIRALAX17 GM PO (13:15)
[2016-07-05] MEDS ORDERED: LANTUS100 UNIT/M SUBQ (13:15)
[2016-07-05 14:45] VITALS: BP 135/86
[2016-07-05 16:00] VITALS: BP 1114/63
== END 2016-07-05 19:52 | disposition home or self-care (01) | DRG 673 ==
LOC: ER 19:36 → EROBS 22:57 → 4E 23:41 → ICU 06-29 09:24 → 4S 06-30 16:31
PROVIDERS: Emergency Medicine; Family Medicine; Hospitalist; Internal Medicine Gastroenterology; Internal Medicine Nephrology; Nurse Practitioner; Nurse Practitioner Adult Health; Specialist
DX: I12.0 Hypertensive chronic kidney disease with stage 5 chronic kidney disease or end stage renal disease (principal); N18.6 End stage renal disease; J96.01 Acute respiratory failure with hypoxia; A04.7 Enterocolitis due to Clostridium difficile; E87.1 Hypo-osmolality and hyponatremia; K29.70 Gastritis, unspecified, without bleeding; E87.5 Hyperkalemia; E10.43 Type 1 diabetes mellitus with diabetic autonomic (poly)neuropathy; E10.40 Type 1 diabetes mellitus with diabetic neuropathy, unspecified; K31.84 Gastroparesis; D64.9 Anemia, unspecified; K59.00 Constipation, unspecified; E10.65 Type 1 diabetes mellitus with hyperglycemia; E10.22 Type 1 diabetes mellitus with diabetic chronic kidney disease; K80.20 Calculus of gallbladder without cholecystitis without obstruction; R74.0 Nonspecific elevation of levels of transaminase and lactic acid dehydrogenase [LDH]; T14.8 Other injury of unspecified body region; K31.89 Other diseases of stomach and duodenum; K31.4 Gastric diverticulum; G89.29 Other chronic pain; M54.5 Low back pain; Z88.8 Allergy status to other drugs, medicaments and biological substances; Z88.6 Allergy status to analgesic agent; Z88.1 Allergy status to other antibiotic agents; Z99.2 Dependence on renal dialysis; Z91.041 Radiographic dye allergy status; Z79.899 Other long term (current) drug therapy
CPT/HCPCS: 10078; 10100; 10183; 32100; 62110; 62900; 70005

== ENCOUNTER 2016-07-08 06:18 | Inpatient (IN) | payer OTHER ==
[~2016-07-08] VITALS: Ht 149.9 cm; Wt 55.8 kg
--- NOTE | ~2016-07-08 | HC ---
[facility] [place] [address] CONSULTATION Name: EVERTON ROMAN Room #: 440-P ADM IN M.R.#: [id number] Admission: 07/08/16 Attend Phys: Robert Hogan MD Discharge: Date of : 72 Report #: [id number] THIS REPORT FOR: //name// CC: JEOVANNY physician/PCP Robert Hogan DATE OF SERVICE: 07/08/2016 REASON FOR CONSULTATION: End-stage renal disease. REASON FOR PRESENTATION: Hypoglycemia. HISTORY OF PRESENT ILLNESS: This is an unfortunate female patient with past medical history of end-stage renal disease, maintained on hemodialysis. She was just recently discharged from the hospital after a prolonged hospital stay for C. diff, blood sugar issues, fluid overload, hyperkalemia, hypoglycemia, hyperglycemia. She was discharged on 12 units Lantus at night with 3 units NovoLog before meals. She was found to have a blood sugar of 40 this morning and was brought to the Emergency Room after she did not respond to an oral glucose. She was admitted for evaluation and management of her hypoglycemia, which seems to be a recurrent pattern. Unfortunately, the patient has very difficult social situations and she is not able to care for herself. She suffered from hyperkalemia and fluid overload in the last 3 weeks and we managed to aggressively ultrafiltrate her with dialysis. She was also found to have a stenotic lesion contributing to hyperkalemia and this was fixed. PAST MEDICAL HISTORY: 1. Hypertension. 2. Diabetes mellitus. 3. End-stage renal disease, maintained on hemodialysis. 4. Repeated episodes of hyperkalemia. 5. DKA. 6. Elevated liver enzymes. 7. C. diff. 8. Left arm graft. 9. Tubal ligations. 10. Breast lump. MEDICATIONS: 1. Amlodipine. 2. Carvedilol. 3. Lantus 12 units at bedtime. 4. Switched to metronidazole. ALLERGIES: AMOXICILLIN, ASPIRIN, LES INHIBITORS. [facility] [address] [place] [address] CONSULTATION Name: EVERTON ROMAN Room #: 440-P [facility] IN .R.#: [id number] Admission: 07/08/16 Attend Phys: Robert Hogan MD Discharge: Date of : 72 Report #: [id number] SOCIAL HISTORY: No drug or alcohol abuse. REVIEW OF SYSTEMS: GENERAL: Significant for weakness. CARDIOVASCULAR: No chest pain, but she had some palpitation. PULMONARY: No cough or hemoptysis. GASTROINTESTINAL: Decreased p.o. intake. MUSCULOSKELETAL: Diffuse arthralgias. NEUROLOGICAL: . PHYSICAL EXAMINATION: GENERAL: The patient was lethargic. VITAL SIGNS: Blood pressure was 130/80, pulse rate was 80. HEAD AND NECK: No jugular venous distention, no bruit, no thyromegaly, edematous facial characteristic. CHEST: Decreased air entry bilaterally. CARDIOVASCULAR: No rub detected. ABDOMEN: Soft, nontender. LOWER EXTREMITIES: Extensive edema. LABORATORY VALUES: Reviewed. Blood sugar still on the low side at 62. On presentation, blood sugar was 13. Hemoglobin 11.2. Chest x-ray was reviewed with some edema but much better. ASSESSMENT, IMPRESSION AND PLAN: 1. End-stage renal disease. 2. Brittle diabetes with hypoglycemia with unawareness of her symptoms during sleep. 3. Clostridium difficile. 4. Elevated liver enzymes. 5. Status post liver biopsy. 6. End-stage renal disease, maintained on dialysis. 7. Repeated episodes of fluid overload and hyperkalemia. 8. Difficult social situation. 9. Hemodialysis will be arranged today. 10. Blood sugar will be managed by the Endocrinology service. 11. Unfortunately, this is a very difficult situation and the patient will continue to have repeated episodes of admissions. Discussed with the family at length she will need to consider nursing facility. 12. Resume p.o. vancomycin; however, this was on the expensive side for her and [address] [address] CONSULTATION Name: EVERTON ROMAN Room #: 440-P [facility] IN M.R.#: [id number] Admission: 07/08/16 Attend Phys: Robert Hogan MD Discharge: Date of : 72 Report #: [id number] we switched her to p.o. Flagyl to finish her Clostridium difficile treatment. 13. We will continue to follow along. <ELECTRONICALLY SIGNED> By: Laure López MD 07/10/16 1640 0924 1449 Laure López, /nt
--- NOTE | ~2016-07-08 | EKG ---
[address] [place] [employer] [address] ELECTROCARDIOGRAM REPORT Name: LANIWILLIAMEVERTON Room #: REG [facility]#: [id number] Admission: 07/08/16 Attend Phys: Discharge: Date of : 72 Report #: [id number] THIS REPORT FOR: //name// [facility] ED Test Date: 2016-07-08 Test Time: 06:26:51 Pat Name: EVERTON ROMAN Department: Room: Gender: F Records Coordinator: DEVANTE : 1970 Requested By: Gabriel Disla Order Number: [id number] MD: Kevin Stone Measurements Intervals [place] Rate: 82 P: 67 NH: 163 QRS: 32 QRSD: 79 T: 34 QT: 423 QTc: 494 Interpretive Statements Sinus rhythm Borderline prolonged QT interval Baseline wander in lead(s) I,III,aVR,aVL,V1,V2,V5,V6 Compared to ECG 06/29/2016 07:19:44 Sinus tachycardia no longer present Electronically Signed On 07-08-2016 8:36:52 CDT by Kevin Stone [email or web address] <ELECTRONICALLY SIGNED> By: Kevin Stone MD, [facility] 07/08/16 0836 0626 Kevin Stone MD, [facility] /EPI
[~2016-07-08 06:18] MED LIST changes: +BENTYL 20 MG TA20 M1 PO; +CARVEDILOL12.5 MG PO; +CARVEDILOL6.25 MG PO; +GABAPENTIN 100100 MG PO; +LIPITOR10 MG PO; +MIRALAX17 GM PO; +NORCO 5-325 TA1 EACH PO; +NORVASC5 MG PO; +NOVOLOG FL100 UNIT/M SC; +OMEPRAZOLE 20 M20 M1 PO; +PHENERGAN 25 MG25 M1 PO; +REGLAN 10 MG TA10 MG PO; +ROBAXIN500 MG PO; +VANCOMYCIN100 MG/ML PO
[2016-07-08 06:36] LABS: HEMATOCRIT 33.5 % (37.0-47.0); HEMOGLOBIN 11.2 gm/dL (12.0-15.0); MCH 30.4 pg (26.0-34.0); MCHC 33.4 g/dL (28.0-37.0); MCV 90.9 fL (80.0-100.0); RBC 3.69 mil/uL (4.20-5.00); RDW 14.2 % (10.5-14.5); WBC 9.3 thou/uL (4.0-11.0)
[2016-07-08 06:39] VITALS: BP 156/85
[2016-07-08 06:42] LABS: ANION GAP 11 mmol/L (7-16); BUN 36 mg/dL (7-18); CALCIUM 8.4 mg/dL (8.5-10.1); CHLORIDE 100 mmol/L (98-107); CO2 29 mmol/L (21-32); CREATININE 3.6 mg/dL (0.6-1.0); POTASSIUM 3.1 mmol/L (3.5-5.1); SODIUM 140 mmol/L (136-145)
[2016-07-08 06:44] LABS: GLUCOSE 13 mg/dL (74-106)
[2016-07-08 06:51] LABS: TROPONIN-I < 0.04 ng/mL (<0.04-0.07)
[2016-07-08] MEDS ORDERED: TRIAMCINOLONE A80 G2 TOP (07:47)
[2016-07-08] MEDS ORDERED: RENA-VITE RX T1 EACH PO (07:48)
[2016-07-08] MEDS ORDERED: FLAGYL500 MG PO (07:48)
[2016-07-08 10:40] VITALS: BP 154/78
[2016-07-08 16:00] VITALS: BP 188/94
[2016-07-08 19:51] VITALS: BP 149/84
[2016-07-08 23:59] VITALS: BP 143/85
[2016-07-09 03:16] VITALS: BP 136/82
[2016-07-09 06:33] LABS: CALCIUM 7.6 mg/dL (8.5-10.1); CREATININE 3.7 mg/dL (0.6-1.0); TOTAL BILIRUBIN 0.5 mg/dL (<0.1-1.0); TOTAL PROTEIN 6.3 g/dL (6.4-8.2)
[2016-07-09 08:00] VITALS: BP 166/92
[2016-07-09 08:04] LABS: POTASSIUM 4.8 mmol/L (3.5-5.1)
[2016-07-09 12:22] VITALS: BP 166/93
[2016-07-09 20:31] VITALS: BP 145/84
[2016-07-10 03:18] VITALS: BP 134/86
[2016-07-10 06:04] LABS: HEMATOCRIT 30.3 % (37.0-47.0); HEMOGLOBIN 10.2 gm/dL (12.0-15.0); MCH 30.9 pg (26.0-34.0); MCHC 33.6 g/dL (28.0-37.0); MCV 92.1 fL (80.0-100.0); RBC 3.29 mil/uL (4.20-5.00); RDW 14.4 % (10.5-14.5); WBC 9.7 thou/uL (4.0-11.0)
[2016-07-10 06:17] LABS: POTASSIUM 4.2 mmol/L (3.5-5.1)
[2016-07-10 06:20] LABS: CREATININE 2.5 mg/dL (0.6-1.0)
[2016-07-10 08:04] VITALS: BP 159/98
[2016-07-10 11:28] VITALS: BP 120/62
[2016-07-10 16:04] VITALS: BP 145/87
[2016-07-10 20:38] VITALS: BP 169/95
[2016-07-11 02:45] VITALS: BP 165/69
[2016-07-11 07:47] VITALS: BP 154/97
[2016-07-11 11:58] VITALS: BP 160/94
[2016-07-11 15:23] VITALS: BP 137/82
[2016-07-11 19:39] VITALS: BP 186/107
[2016-07-12 06:32] VITALS: BP 164/97
[2016-07-12 07:09] LABS: HEMOGLOBIN 11.1 gm/dL (12.0-15.0); MCH 30.6 pg (26.0-34.0); MCHC 33.5 g/dL (28.0-37.0); MCV 91.5 fL (80.0-100.0); RBC 3.61 mil/uL (4.20-5.00); WBC 10.3 thou/uL (4.0-11.0)
[2016-07-12 07:26] LABS: CALCIUM 7.4 mg/dL (8.5-10.1)
[2016-07-12 07:28] LABS: POTASSIUM 6.4 mmol/L (3.5-5.1)
[2016-07-12 07:29] LABS: CREATININE 6.7 mg/dL (0.6-1.0)
[2016-07-12 08:00] VITALS: BP 172/102
[2016-07-12 12:00] VITALS: BP 140/79
[2016-07-12 16:00] VITALS: BP 137/76
[2016-07-12 19:46] VITALS: BP 113/69
[2016-07-13 05:18] VITALS: BP 146/86
[2016-07-13 06:22] LABS: ALBUMIN 3.1 g/dL (3.4-5.0); CALCIUM 8.1 mg/dL (8.5-10.1); PHOSPHORUS 6.9 mg/dL (2.5-4.9); POTASSIUM 5.5 mmol/L (3.5-5.1)
[2016-07-13 06:28] LABS: CREATININE 4.6 mg/dL (0.6-1.0)
[2016-07-13 08:00] VITALS: BP 147/91
[2016-07-13 12:13] VITALS: BP 161/93
[2016-07-13 20:37] VITALS: BP 128/76
[2016-07-14 00:56] LABS: ALBUMIN 3.1 g/dL (3.4-5.0); CALCIUM 6.8 mg/dL (8.5-10.1); CREATININE 4.4 mg/dL (0.6-1.0); PHOSPHORUS 5.8 mg/dL (2.5-4.9); POTASSIUM 5.4 mmol/L (3.5-5.1)
[2016-07-14 03:44] VITALS: BP 130/77
[2016-07-14 08:53] VITALS: BP 142/82
[2016-07-14 12:49] VITALS: BP 115/73
[2016-07-14 16:37] VITALS: BP 161/97
[2016-07-14 20:05] VITALS: BP 150/84
[2016-07-15 04:50] VITALS: BP 122/67
[2016-07-15 06:28] LABS: HEMATOCRIT 28.4 % (37.0-47.0); HEMOGLOBIN 9.6 gm/dL (12.0-15.0); MCH 30.9 pg (26.0-34.0); MCHC 33.8 g/dL (28.0-37.0); MCV 91.4 fL (80.0-100.0); RBC 3.1 mil/uL (4.20-5.00)
[2016-07-15 06:44] LABS: ALBUMIN 3.2 g/dL (3.4-5.0); CALCIUM 7.3 mg/dL (8.5-10.1); CREATININE 3.8 mg/dL (0.6-1.0); MAGNESIUM 2.2 mg/dL (1.8-2.4); POTASSIUM 4.8 mmol/L (3.5-5.1)
[2016-07-15 08:37] VITALS: BP 147/82
[2016-07-15] MEDS ORDERED: LANTUS100 UNIT/M SUBQ (11:02)
[2016-07-15] MEDS ORDERED: HUMALOG100 UNIT/1 SUBQ ×2 (11:03)
[2016-07-15] MEDS ORDERED: NORCO 5-325 TA1 EACH PO (11:30)
[2016-07-15 12:40] VITALS: BP 114/74
[2016-07-15 16:14] VITALS: BP 114/74
[2016-07-15 16:48] VITALS: BP 132/78
[2016-07-15 19:30] VITALS: BP 126/76
== END 2016-07-15 21:15 | disposition home or self-care (01) | DRG 637 ==
LOC: ER 06:18 → EROBS 08:35 → 4S 08:35
PROVIDERS: Emergency Medicine; Family Medicine; Internal Medicine Nephrology; Nurse Practitioner Family
PROC: 5A1D60Z (ICD-10-PCS; principal; 2016-07-08)
DX: E10.649 Type 1 diabetes mellitus with hypoglycemia without coma (principal); G93.49 Other encephalopathy; I12.0 Hypertensive chronic kidney disease with stage 5 chronic kidney disease or end stage renal disease; A04.7 Enterocolitis due to Clostridium difficile; N18.6 End stage renal disease; E10.10 Type 1 diabetes mellitus with ketoacidosis without coma; G89.29 Other chronic pain; R10.9 Unspecified abdominal pain; E10.22 Type 1 diabetes mellitus with diabetic chronic kidney disease; E87.6 Hypokalemia; E88.9 Metabolic disorder, unspecified; D63.8 Anemia in other chronic diseases classified elsewhere; Z79.899 Other long term (current) drug therapy; Z88.6 Allergy status to analgesic agent; Z88.1 Allergy status to other antibiotic agents; Z91.041 Radiographic dye allergy status; Z99.2 Dependence on renal dialysis
CPT/HCPCS: 10100; 32100

== ENCOUNTER 2016-12-31 19:47 | Emergency (ER) | payer OTHER ==
[~2016-12-31] VITALS: Ht 149.9 cm; Wt 44.5 kg
--- NOTE | ~2016-12-31 | EKG ---
[address] [address] ELECTROCARDIOGRAM REPORT Name: ABELEVERTON Room #: DEP [facility]#: [id number] Admission: 12/31/16 Attend Phys: Discharge: 12/31/16 Date of : 72 Report #: [id number] THIS REPORT FOR: //name// [facility] ED Test Date: 2016-12-31 Test Time: 20:46:08 Pat Name: EVERTON ROMAN Department: Room: Gender: F Distribution Superintendent: [id number] : 1970 Requested By: Isabel Méndez Order Number: [id number] MD: Hernán Jimenez Measurements Intervals [place] Rate: 79 P: 80 ME: 160 QRS: 40 QRSD: 93 T: 46 QT: 422 QTc: 484 Interpretive Statements Sinus rhythm Probable left atrial enlargement Compared to ECG 07/08/2016 06:26:51 No significant changes Electronically Signed On 01-01-2017 8:46:53 CDT by Hernán Jimenez [email or web address] <ELECTRONICALLY SIGNED> By: Hernán Jimenez MD 01/01/1746 45 45 Hernán Jimenez MD /MARY
[~2016-12-31 19:47] MED LIST changes: +FLAGYL500 MG PO; +RENA-VITE RX T1 EACH PO; +TRIAMCINOLONE A80 G2 TOP
[2016-12-31 20:09] LABS: HEMATOCRIT 42.1 % (37.0-47.0); HEMOGLOBIN 14.1 gm/dL (12.0-15.0); MCH 32.5 pg (26.0-34.0); MCHC 33.4 g/dL (28.0-37.0); MCV 97.3 fL (80.0-100.0); RBC 4.32 mil/uL (4.20-5.00); RDW 14.2 % (10.5-14.5); WBC 10.1 thou/uL (4.0-11.0)
[2016-12-31 20:11] LABS: MANUAL DIFF YES
[2016-12-31 20:13] LABS: CALCIUM 9.5 mg/dL (8.5-10.1); CREATININE 2.8 mg/dL (0.6-1.0); POTASSIUM 3.6 mmol/L (3.5-5.1)
[2016-12-31] MEDS ORDERED: LEVEMIR SUBQ (20:15)
[2016-12-31 20:19] LABS: ALBUMIN 3.9 g/dL (3.4-5.0); DIRECT BILIRUBIN 0.1 mg/dL (<0.1-0.3); TOTAL BILIRUBIN 0.4 mg/dL (<0.1-1.0); TOTAL PROTEIN 7.9 g/dL (6.4-8.2)
[2016-12-31 20:49] LABS: ABSOLUTE NEUTROPHILS 2.4 thou/uL (1.4-8.2); ATYPICAL LYMPHS 2 %; TOTAL CELL COUNT 100
[2016-12-31 20:54] LABS: PLATELET COUNT 236 thou/uL (150-400)
== END 2016-12-31 22:15 | disposition home or self-care (01) ==
LOC: ER 19:47
PROVIDERS: Emergency Medicine
DX: E11.649 Type 2 diabetes mellitus with hypoglycemia without coma (principal); I12.9 Hypertensive chronic kidney disease with stage 1 through stage 4 chronic kidney disease, or unspecified chronic kidney disease; E11.22 Type 2 diabetes mellitus with diabetic chronic kidney disease; N18.4 Chronic kidney disease, stage 4 (severe); Z99.2 Dependence on renal dialysis; Z79.4 Long term (current) use of insulin; Z86.39 Personal history of other endocrine, nutritional and metabolic disease; Z88.1 Allergy status to other antibiotic agents; Z91.048 Other nonmedicinal substance allergy status; Z88.8 Allergy status to other drugs, medicaments and biological substances; Z88.6 Allergy status to analgesic agent

== ENCOUNTER 2017-03-14 07:42 | Inpatient (IN) | payer OTHER ==
[~2017-03-14] VITALS: Ht 149.9 cm; Wt 47.2 kg
[2017-03-14] VITALS (21 sets, daily range): BP systolic 96–126; BP diastolic 58–103
--- NOTE | ~2017-03-14 | HC ---
[facility] [place] [address] CONSULTATION Name: EVERTON ROMAN Room #: 248-P ADM IN M.R.#: [id number] Admission: 03/14/17 Attend Phys: Tiffany Mata MD Discharge: Date of : 72 Report #: [id number] THIS REPORT FOR: //name// CC: [facility] physician/PCP Tiffany Mata REASON FOR CONSULTATION: End-stage renal disease. HISTORY OF PRESENT ILLNESS: This is very well known patient to me. She is in end-stage renal disease due to diabetes mellitus. She suffers from brittle diabetes with very uncontrolled blood sugar readings. She has had repeated episodes of C. diff in the past. She also has had repeated episodes of diabetic ketoacidosis. She dialyzes every Tuesday, Tuesday and Tuesday. She started to have some issues with nausea, vomiting, diarrhea and was brought for further evaluation and management. No reported pulmonary symptoms. She had long-standing diabetes mellitus and is felt to have diabetic gastroparesis. In the previous admissions, she had extensive workup for elevated liver enzymes and was evaluated by the Hepatology service and her elevated LFT was going with medication-induced reaction. CT was done yesterday and this revealed what seems to be colitis and she was admitted for further evaluation and management. PAST MEDICAL HISTORY: Extensive and includes the followin. Long-standing diabetes mellitus with all diabetic complications. 2. Hypertension. 3. End-stage renal disease. 4. Cholelithiasis. 5. C. diff. 6. Gastroparesis. SOCIAL HISTORY: No drug or alcohol abuse. FAMILY HISTORY: Significant for diabetes mellitus and hypertension. MEDICATIONS: The patient is currently maintained on the followin. Carvedilol. 2. Amlodipine. 3. Levemir 3 units in a.m. 4. Lispro or Humalog sliding scale. 5. Gabapentin. PHYSICAL EXAMINATION: GENERAL: Alert, oriented, in no apparent distress. VITAL SIGNS: Blood pressure is mildly elevated at . HEAD AND NECK: No jugular venous distention, no bruit, no thyromegaly. CHEST: Decreased air entry bilaterally. CARDIOVASCULAR: Regular with no rub. ABDOMEN: Soft. Slight tenderness in lower aspect of her abdomen. [facility] [address] [place] [address] CONSULTATION Name: EVERTON ROMAN Room #: 248-P [facility] IN [facility].#: [id number] Admission: 03/14/17 Attend Phys: Tiffany Mata MD Discharge: Date of : 72 Report #: [id number] EXTREMITIES: Lower extremities, no edema. LABORATORY DATA: Reviewed. Elevated liver enzymes noted and those are getting somewhat better. Blood sugar was elevated when she presented with a value of 500. UA was reviewed. Cultures and flu studies are negative so far. IMAGING: CT was reviewed. ASSESSMENT, IMPRESSION: 1. End-stage renal disease. 2. Elevated liver enzyme. 3. Diabetes mellitus, difficult to control. 4. Colitis. 5. Blood sugar had been on the high side and she was on insulin. I will switch to her usual home dialysis regimen. 6. If okay with other team members, start p.o. 7. Clostridium difficile studies. 8. Pending cultures. 9. Antibiotics per ID. 10. Dialysis will be arranged for today. 11. We will continue to follow along. <ELECTRONICALLY SIGNED> By: Laure López MD 03/18/17 0953 0851 0919 Laure López MD /nt
--- NOTE | ~2017-03-14 | HC ---
[facility] [place] [address] CONSULTATION Name: EVERTON ROMAN Room #: 248-P ADM IN M.R.#: [id number] Admission: 03/14/17 Attend Phys: Tiffany Mata MD Discharge: Date of : 72 Report #: [id number] THIS REPORT FOR: //name// CC: [facility] physician/PCP Tiffany Mata TYPE OF REPORT: Infectious diseases consultation. REASON FOR CONSULTATION: I was asked to evaluate concerning sepsis and colitis in the setting of diabetes and end-stage renal disease. HISTORY OF PRESENT ILLNESS: The patient is a 46-year old presents to the Emergency Room with nausea, vomiting and diarrhea. Onset was approximately 5 days ago. No documented fever or chills. She does have fairly significant diabetes and dialyzes via a left upper extremity AV graft on Tuesday, Tuesday and Tuesday. She missed dialysis yesterday. She had a previous history of C. difficile colitis identified in June of this past year. She reports normal stools up to this past week. She does have underlying gastroparesis. Blood sugars have been over 500 today. She has been exposed to her knees. She had an upper respiratory tract infection. She has not taken a flu shot. Denies any cough or sputum production. She has had mild headache. No myalgias or arthralgias. Her pain mostly is in the upper abdomen. She thinks it is more related to her vomiting. No abdominal cramping. No mucus in her stools or blood. Denies any rash. No peripheral edema. ALLERGIES: LES INHIBITORS, AMOXICILLIN, ASPIRIN, BETADINE and TAPE. MEDICATIONS: As noted on her MAR, which were reviewed. Now on insulin, Norvasc and gabapentin at home. PAST MEDICAL HISTORY: Diabetes, hypertension, anemia, tubal ligation, C. difficile colitis and cholelithiasis. FAMILY HISTORY: Noncontributory. SOCIAL HISTORY: Nonsmoker. No significant alcohol intake. REVIEW OF SYSTEMS: Noted above. PHYSICAL EXAMINATION: VITAL SIGNS: Afebrile, hemodynamically stable. GENERAL: She was alert and cooperative. SKIN: Unremarkable. LYMPH: Unremarkable. HEENT: Unremarkable. NECK: Supple. LUNGS: Clear. [facility] [address] [place] [address] CONSULTATION Name: EVERTON ROMAN Room #: 248-P [facility] IN M.R.#: [id number] Admission: 03/14/17 Attend Phys: Tiffany Mata MD Discharge: Date of : 72 Report #: [id number] HEART: Regular, without murmur. ABDOMEN: Soft with mild tenderness in the epigastric region. No tenderness down in the lower quadrants. No mass or hepatosplenomegaly. BACK: Tender along the lower lumbar spine region. No definite point tenderness. EXTREMITIES: Unremarkable. LABORATORY STUDIES: Blood glucose greater than 500; hemoglobin 12.8; platelet count was 224,000 and white count was 5.6, 90% segs and 2% bands. Sodium 131, potassium 5.6, creatinine 7.9 and bicarbonate of 13. AST 366; ALT 259; alkaline phosphatase 232,000; bilirubin 0.6 and lipase 39. Urinalysis with yeast. RADIOLOGICAL DATA: CT scan of the abdomen and pelvis showed evidence of pancolitis. IMPRESSION: A 46-year-old with diabetic gastroparesis and previous Clostridium difficile colitis; presents now with a 5-day history of enteritis symptoms. CT scan shows evidence of colitis. I am concerned about relapse of her Clostridium difficile colitis. She does have evidence of hepatitis as well. I could not define a point tenderness to her right upper quadrant, however. RECOMMENDATIONS: We will give clear liquids p.o. today. We will see how she tolerates this. We will continue with vancomycin and metronidazole. Await stool samples. Ultrasound of the liver and gallbladder. Continue with IV fluid resuscitation. If does not show signs of improvement, we will consider GI evaluation for endoscopy. <ELECTRONICALLY SIGNED> By: Jim Sloan MD 03/15/17 0839 [id number] 0032 Jim Sloan MD /nt
[2017-03-14 08:46] LABS: ABSOLUTE NEUTROPHILS 3.1 thou/uL (1.4-8.2); BASOPHILS 0.9 % (0.0-2.0); EOSINOPHILS 0.5 % (0.0-3.0); HEMATOCRIT 39.8 % (37.0-47.0); HEMOGLOBIN 13.1 gm/dL (12.0-15.0); LYMPHOCYTES 29.8 % (24.0-44.0); MCH 32.5 pg (26.0-34.0); MCHC 32.9 g/dL (28.0-37.0); MCV 98.9 fL (80.0-100.0); MONOCYTES 8.4 % (1.0-8.0); PLATELET COUNT 211 thou/uL (150-400); POLYS 60.4 % (36.0-66.0); RBC 4.03 mil/uL (4.20-5.00); RDW 13.6 % (10.5-14.5); WBC 5.2 thou/uL (4.0-11.0)
[2017-03-14 10:11] LABS: CALCIUM 8.4 mg/dL (8.5-10.1); CREATININE 7.7 mg/dL (0.6-1.0); POTASSIUM 4.3 mmol/L (3.5-5.1)
[2017-03-14 10:12] LABS: ALBUMIN 3.2 g/dL (3.4-5.0); DIRECT BILIRUBIN 0.2 mg/dL (<0.1-0.3); TOTAL BILIRUBIN 0.6 mg/dL (<0.1-1.0); TOTAL PROTEIN 6.3 g/dL (6.4-8.2)
[2017-03-14 11:06] LABS: URINE BILIRUBIN 1+ (Negative); URINE BLOOD 1+ (Negative); URINE CLARITY CLEAR; URINE COLOR YELLOW; URINE GLUCOSE-RANDOM* 3+ (Negative); URINE KETONES 1+ (Negative); URINE LEUKOCYTES-REFLEX NEGATIVE (Negative); URINE NITRITE-REFLEX NEGATIVE (Negative); URINE PROTEIN (DIPSTICK) 3+ (Negative); URINE UROBILINOGEN 0.2 E.U./dl (0.2-1.0)
[2017-03-14 11:13] LABS: ICTOTEST (BILI CONFIRMATORY) Positive (Negative)
[2017-03-14 11:16] LABS: CASTS None Seen /LPF (None Seen); SQUAMOUS >10 Many /LPF (0-3); URINE RBC 0-2 Rare /HPF (0-2); URINE WBC-REFLEX 0-5 Rare /HPF (0-5)
[2017-03-14 11:17] LABS: BACTERIA-REFLEX 1-9 Few /HPF (None Seen); CRYSTALS None Seen /LPF (None Seen); YEAST-REFLEX Present (None Seen)
[2017-03-14] MEDS ORDERED: NORVASC5 MG PO (11:44)
[2017-03-14] MEDS ORDERED: GABAPENTIN 100100 MG (11:45)
[2017-03-14 15:48] LABS: HEMATOCRIT 41.2 % (37.0-47.0); HEMOGLOBIN 12.8 gm/dL (12.0-15.0); MCH 32.7 pg (26.0-34.0); MCHC 31.1 g/dL (28.0-37.0); PLATELET COUNT 224 thou/uL (150-400); RBC 3.91 mil/uL (4.20-5.00); RDW 14.8 % (10.5-14.5); WBC 5.6 thou/uL (4.0-11.0)
[2017-03-14 15:50] LABS: MCV 105.4 fL (80.0-100.0)
[2017-03-14 16:15] LABS: CALCIUM 8.8 mg/dL (8.5-10.1); CREATININE 7.9 mg/dL (0.6-1.0)
[2017-03-14 16:19] LABS: POTASSIUM 5.6 mmol/L (3.5-5.1)
[2017-03-14 16:32] LABS: ABSOLUTE NEUTROPHILS 5.2 thou/uL (1.4-8.2)
[2017-03-15] VITALS (58 sets, daily range): BP systolic 74–142; BP diastolic 47–91
[2017-03-15 07:06] LABS: ABSOLUTE NEUTROPHILS 5.2 thou/uL (1.4-8.2); BASOPHILS 0.3 % (0.0-2.0); HEMATOCRIT 32.4 % (37.0-47.0); HEMOGLOBIN 10.9 gm/dL (12.0-15.0); LYMPHOCYTES 15.9 % (24.0-44.0); MCHC 33.8 g/dL (28.0-37.0); MONOCYTES 6.5 % (1.0-8.0); PLATELET COUNT 194 thou/uL (150-400); POLYS 77.3 % (36.0-66.0); RBC 3.32 mil/uL (4.20-5.00); RDW 13.6 % (10.5-14.5); WBC 6.7 thou/uL (4.0-11.0)
[2017-03-15 07:14] LABS: MCV 97.7 fL (80.0-100.0)
[2017-03-15 07:27] LABS: ALBUMIN 2.8 g/dL (3.4-5.0); CALCIUM 8.4 mg/dL (8.5-10.1); CREATININE 8.2 mg/dL (0.6-1.0); POTASSIUM 4.8 mmol/L (3.5-5.1); TOTAL BILIRUBIN 0.4 mg/dL (<0.1-1.0); TOTAL PROTEIN 5.6 g/dL (6.4-8.2)
[2017-03-15 18:01] LABS: CALCIUM 8.2 mg/dL (8.5-10.1)
[2017-03-15 19:25] LABS: POTASSIUM 3.1 mmol/L (3.5-5.1)
[2017-03-15 19:26] LABS: CREATININE 0.8 mg/dL (0.6-1.0)
[2017-03-16] VITALS (66 sets, daily range): BP systolic 82–128; BP diastolic 51–78
[2017-03-16 03:38] LABS: HEMATOCRIT 31.9 % (37.0-47.0); HEMOGLOBIN 10.8 gm/dL (12.0-15.0); MCH 33.2 pg (26.0-34.0); MCHC 33.8 g/dL (28.0-37.0); MCV 98.2 fL (80.0-100.0); RBC 3.25 mil/uL (4.20-5.00); RDW 14.1 % (10.5-14.5)
[2017-03-16 03:44] LABS: POTASSIUM 4.4 mmol/L (3.5-5.1)
[2017-03-16 03:45] LABS: CREATININE 3.7 mg/dL (0.6-1.0)
[2017-03-16 14:12] LABS: HEPATITIS B SURFACE AG Negative (Negative)
[2017-03-17 04:25] VITALS: BP 105/66
[2017-03-17 04:51] LABS: HEMATOCRIT 31.4 % (37.0-47.0); HEMOGLOBIN 10.6 gm/dL (12.0-15.0); MCH 33.5 pg (26.0-34.0); MCHC 33.7 g/dL (28.0-37.0); MCV 99.4 fL (80.0-100.0); RBC 3.15 mil/uL (4.20-5.00); RDW 13.8 % (10.5-14.5); WBC 2.9 thou/uL (4.0-11.0)
[2017-03-17 05:03] LABS: CALCIUM 7.7 mg/dL (8.5-10.1); CREATININE 3.4 mg/dL (0.6-1.0); POTASSIUM 4.3 mmol/L (3.5-5.1)
[2017-03-17 08:29] VITALS: BP 108/67
[2017-03-17 12:31] VITALS: BP 110/72
[2017-03-17 17:11] VITALS: BP 101/68
[2017-03-17 20:00] VITALS: BP 113/77
[2017-03-18] VITALS (32 sets, daily range): BP systolic 74–158; BP diastolic 54–109
[2017-03-18 04:35] LABS: HEMATOCRIT 33.2 % (37.0-47.0); HEMOGLOBIN 11.1 gm/dL (12.0-15.0); MCH 33.1 pg (26.0-34.0); MCHC 33.5 g/dL (28.0-37.0); RBC 3.35 mil/uL (4.20-5.00); RDW 13.8 % (10.5-14.5); WBC 3.3 thou/uL (4.0-11.0)
[2017-03-18 04:51] LABS: ALBUMIN 2.6 g/dL (3.4-5.0); CALCIUM 7.8 mg/dL (8.5-10.1); POTASSIUM 4.2 mmol/L (3.5-5.1); TOTAL BILIRUBIN 0.5 mg/dL (<0.1-1.0); TOTAL PROTEIN 5.6 g/dL (6.4-8.2)
[2017-03-18 04:59] LABS: CREATININE 4.8 mg/dL (0.6-1.0)
[2017-03-18] MEDS ORDERED: VANCOMYCIN HCL10 GM PO (14:51)
[2017-04-13] MEDS ORDERED: CARVEDILOL12.5 MG PO (12:49)
[2017-04-13] MEDS ORDERED: NOVOLOG100 UNIT/1 SUBQ (12:50)
[2017-04-13] MEDS ORDERED: PHENERGAN 25 MG25 M1 PO (12:51)
[2017-04-13] MEDS ORDERED: TRESIBA FL100 UNIT/1 SUBQ (13:06)
[2017-07-08] MEDS ORDERED: RENVELA800 MG PO (08:57)
[2017-07-08] MEDS ORDERED: NOVOLOG100 UNIT/M SUBQ (08:58)
[2017-07-08] MEDS ORDERED: TRAMADOL 50 MG50 MG PO (09:40)
[2017-09-07] MEDS ORDERED: ROXICODONE5 MG PO (09:24)
[2017-09-30] MEDS ORDERED: ROXICODONE5 MG PO (15:21)
[2017-09-30] MEDS ORDERED: BACLOFEN 10MG T10 MG PO (15:21)
[2017-09-30] MEDS ORDERED: TRAMADOL 50 MG50 MG PO (15:21)
[2017-11-07] MEDS ORDERED: REGLAN 10 MG TA10 MG PO (21:22)
[2017-11-09] MEDS ORDERED: ROXICODONE5 MG PO (15:10)
[2017-11-09] MEDS ORDERED: TRAMADOL 50 MG50 MG PO (15:13)
== END 2017-03-18 18:04 | disposition home or self-care (01) | DRG 871 ==
LOC: ER 07:42 → ICU 13:51 → EROBS 13:51 → ICU 15:10 → ENTRNSPT 03-18 17:18 → ICU 03-18 18:04
PROVIDERS: Emergency Medicine; Hospitalist; Internal Medicine Endocrinology, Diabetes & Metabolism; Specialist
PROC: 5A1D70Z Performance of Urinary Filtration, Intermittent, Less than 6 Hours Per Day (ICD-10-PCS; 2017-03-15)
PROC: 5A1D70Z Performance of Urinary Filtration, Intermittent, Less than 6 Hours Per Day (ICD-10-PCS; 2017-03-16)
PROC: 5A1D70Z Performance of Urinary Filtration, Intermittent, Less than 6 Hours Per Day (ICD-10-PCS; principal; 2017-03-18)
DX: A41.9 Sepsis, unspecified organism (principal); E11.10 Type 2 diabetes mellitus with ketoacidosis without coma; N18.6 End stage renal disease; I12.0 Hypertensive chronic kidney disease with stage 5 chronic kidney disease or end stage renal disease; A09 Infectious gastroenteritis and colitis, unspecified; R74.0 Nonspecific elevation of levels of transaminase and lactic acid dehydrogenase [LDH]; E11.43 Type 2 diabetes mellitus with diabetic autonomic (poly)neuropathy; K31.84 Gastroparesis; E11.22 Type 2 diabetes mellitus with diabetic chronic kidney disease; K80.20 Calculus of gallbladder without cholecystitis without obstruction; E11.65 Type 2 diabetes mellitus with hyperglycemia; E11.40 Type 2 diabetes mellitus with diabetic neuropathy, unspecified; G89.29 Other chronic pain; K75.9 Inflammatory liver disease, unspecified; E11.319 Type 2 diabetes mellitus with unspecified diabetic retinopathy without macular edema; Z79.899 Other long term (current) drug therapy; Z88.6 Allergy status to analgesic agent; Z88.1 Allergy status to other antibiotic agents; Z88.8 Allergy status to other drugs, medicaments and biological substances; Z91.09 Other allergy status, other than to drugs and biological substances; Z82.49 Family history of ischemic heart disease and other diseases of the circulatory system; Z83.3 Family history of diabetes mellitus
CPT/HCPCS: 10078; 32100

== ENCOUNTER → 2017-04-13 | Outpatient (CLI) | payer OTHER ==
[~2017-04-13] VITALS: Ht 149.9 cm; Wt 45.2 kg
[~2017-04-13] MED LIST changes: +BACLOFEN 10MG T10 MG PO; +GABAPENTIN 100100 MG; +MULTI VITAMIN1 EACH PO; +NOVOLOG100 UNIT/M SUBQ; +ONDANSETRON HCL4 M2 PO; +RENVELA800 MG PO; +ROXICODONE5 MG PO; +TRESIBA FL100 UNIT/1 SUBQ; +VANCOMYCIN HCL10 GM PO; +ZOFRAN ODT4 MG PO
--- NOTE | ~2017-04-13 | HPC ---
[facility] [place] [address] PAIN MANAGEMENT CONSULTATION Name: LANIWILLIAMEVERTON Zayda Room #: REG GIANNA Og#: [id number] Admission: 04/13/17 Attend Phys: Brad Alexandra MD Discharge: Date of : 72 Report #: [id number] THIS REPORT FOR: //name// CC: JEOVANNY physician/PCP Brad Alexandra DATE OF SERVICE: 04/13/2017 PRIMARY PHYSICIAN: The patient states she does not have a family physician or primary physician. CHIEF COMPLAINT: Pain in the lower portion of the back down into the tailbone. There is also a dull pain in the right shoulder blade. FOLLOWUP HISTORY: The patient is a 47-year-old female who has been referred to pain Clinic for evaluation. The patient states that she has been having pain since 2017. She has noted worsening of her pain over the past few weeks. Rates her pain as a 10/10 at this juncture. She describes it as continuous, aching and throbbing. Pain is made worse when she is sitting and sometimes with lying down. Pain sometimes improves while she is standing and shifting her weight from side to side. She denies any trauma to this area. She is suffering from renal failure. She is on dialysis. Denies any infections ongoing. Denies any bowel dysfunction. ALLERGIES: AMOXICILLIN, BETADINE, ASPIRIN, TAPE. LES INHIBITORS CAUSE EDEMA. CURRENT MEDICATIONS: Insulin subq p.r.n. using an insulin pen, Phenergan 25 mg q. 6 hours p.r.n., insulin NovoLog subcutaneous sliding scale, Coreg 12.5 mg b.i.d., gabapentin 100 mg at bedtime, Norvasc 5 mg, total of 10 mg, at bedtime. PAST MEDICAL HISTORY: Diabetes mellitus 25 years; renal failure, on dialysis Tuesday, Tuesday and Tuesday; history of DKA with metabolic acidosis and hospitalized, discharged 03/18/2017; chronic pain and diabetic neuropathy; infectious colitis; AV dialysis fistula; gastroparesis; hyperkalemia; myalgias; nausea and vomiting; pneumonia. PAST SURGICAL HISTORY: AV fistula. 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 She does not work, has not worked for 3 years. Denies use of tobacco, denies use of alcoholic beverages. REVIEW OF SYSTEMS: Questionnaire in the chart indicates weight changes, decreased appetite, fever, night sweats, fatigue, weakness, headaches, wears glasses, blurred vision, shortness of breath, nausea and vomiting, frequent diarrhea, lightheadedness, numbness and tingling sensation, insomnia, diabetes, excessive thirst, heat and cold intolerance, slow to heal after cuts, [place] [address] PAIN MANAGEMENT CONSULTATION Name: EVERTON ROMAN Room #: REG GIANNA gO#: [id number] Admission: 04/13/17 Attend Phys: Brad Alexandra MD Discharge: Date of : 72 Report #: [id number]. LABORATORY DATA: 1. MRI of the lumbar spine dated 07/08/2015: Unremarkable MRI of the lumbar spine, no significant disk bulge or stenosis. 2. MRI of the cervical spine dated 07/08/2015: Normal MRI of the cervical spine. 3. MRI of the thoracic spine dated 09/19/2015: Mild left convexity curvature with vertebral body height and disk space is maintained. No significant bridging is seen without disk protrusions, stenosis or intrinsic cord changes. Small left pleural effusion noted 09/19/2015. PAIN CLINIC ASSESSMENT: 1. No history of osteoarthritis or rheumatoid arthritis. 2. Height is 4 feet, weight 99 pounds, BMI is 20. 3. Vital signs: Blood pressure 137/84, pulse 103, respiratory rate 14, room air saturation 97%. 4. Pain intensity 10/10. 5. Fall risk: The patient has not fallen. She has not fallen in the last 3 months. 6. Blood thinner: The patient has undergone dialysis without use of heparin. 7. Hypertension: The patient is being treated for hypertension. 8. Opioids greater than 6 weeks: The patient is not on opioids greater than 6 weeks. 9. Risk assessment tool indicates 2/3, which is a low-risk functional assessment tool. 10. The patient does not use illicit drugs, does not use tobacco, does not use alcohol. PHYSICAL EXAMINATION: GENERAL: The patient is a well-developed female, stands shifting her weight from one side to the next during the interview. Appears stated age, alert and oriented x 3. Affect appears appropriate and the patient does appear in some discomfort by her movements and facial grimacing. HEENT: Head is atraumatic. Extraocular eye muscles intact. Hearing is normal. No nasal concerns. Buccal membranes are moist. NECK: Without adenopathy or JVD. LUNGS: Clear to auscultation. HEART: Regular rate. ABDOMEN: Nontender. MUSCULOSKELETAL ALIGNMENT: No evidence of scoliosis, kyphosis or lordosis. Gait: The patient walks slowly and complains of pain in the low back and hip area. Forward flexion to about 15 degrees caused increased pain and discomfort in the low back area. Lumbar extension is limited. Left and right lateral bending cause pain and discomfort in the low back area. Deep tendon reflexes are +2 in the biceps bilaterally. Difficult to appreciate in the triceps and [address] [address] PAIN MANAGEMENT CONSULTATION Name: EVERTON ROMAN Room #: REG [facility]#: [id number] Admission: 04/13/17 Attend Phys: Brad Alexandra MD Discharge: Date of : 72 Report #: [id number] brachioradialis. Deep tendon reflexes of the knees are +2 and +2 at the ankles. Negative straight leg raise. Positive Go's sign with pain radiating into the low back area bilaterally. Anterior spring test causes some increased pain in the low back area. Lateral hip compression causes some pain in the affected area. Lowering of dependent leg on the left caused increased pain in the area of the SI joint as well as lowering of the dependent leg on the right caused increased pain in the low back area. The patient has pain and discomfort in the left and right rhomboid area to palpation, this is an area of the right shoulder as well as some hip and SI joint pain to palpation. IMPRESSION: 1. Low back pain with pain and discomfort radiating to the left and right SI joint areas. 2. Hyperglycemia. The patient continues to monitor her blood glucose level. 3. Diabetic neuropathy. 4. End-stage renal disease, on dialysis Tuesday, Tuesday and Tuesday. 5. Nausea and vomiting, stable at this juncture. 6. Myalgia. 7. The patient has pain and discomfort in the left rhomboid area. PLAN: It appears that the patient is suffering from SI joint dysfunction in the left and the right side. Risks and benefits of an SI joint injection were discussed. I also feel the patient would benefit from a visit to the physical therapist 3 times a week for 3 weeks. This could be helpful with the right shoulder pain within the rhomboid area as well as some SI joint exercises and evaluation of hip discomfort. We have discussed the use of local anesthetic and steroid. Possibility of infection, increased muscle soreness, increased pain were discussed and the patient and her stated they understand and agreed to proceed. PROCEDURE NOTE: The patient was placed in the prone position. Her back was sterilely prepped with a Betadine solution, which was allowed to dry, but removed promptly after the procedure. A 25-gauge needle was then advanced into the area of the left SI joint and a total of 5 mL of 0.5% bupivacaine with 40 mg triamcinolone was injected. The fluoroscopy indicated appropriate placement. The contralateral side was treated in a like fashion. Skin wheal was placed in the area of the SI joint. A 20-gauge spinal needle was then advanced into the appropriate placement. 5 mL of 0.5% bupivacaine and 40 mg triamcinolone was injected. The patient was taken to the recovery room where she remained for an appropriate amount of time. She did have some leg numbness in the area and remained in the Pain Clinic until her strength returned. She rated her pain as a zero at the time of discharge. She will follow up in the future as needed. [address] [address] PAIN MANAGEMENT CONSULTATION Name: EVERTON ROMAN Room #: REG GIANNA Og#: [id number] Admission: 04/13/17 Attend Phys: Brad Alexandra MD Discharge: Date of : 72 Report #: [id number] We would like to thank you for letting us participate in her care. We hope she continues to improve. <ELECTRONICALLY SIGNED> By: Brad Alexandra MD 05/25/17 1421 1428 0144 rBad Alexandra MD /nt
[2017-04-13 12:54] VITALS: BP 137/84
== END | disposition home or self-care (01) ==
LOC: PAIN 07:02
DX: M53.3 Sacrococcygeal disorders, not elsewhere classified (principal); M54.16 Radiculopathy, lumbar region; E11.40 Type 2 diabetes mellitus with diabetic neuropathy, unspecified; E11.22 Type 2 diabetes mellitus with diabetic chronic kidney disease; E11.69 Type 2 diabetes mellitus with other specified complication; N18.6 End stage renal disease; M79.1 Myalgia; Z99.2 Dependence on renal dialysis; Z98.890 Other specified postprocedural states; Z88.6 Allergy status to analgesic agent; Z88.8 Allergy status to other drugs, medicaments and biological substances; Z79.4 Long term (current) use of insulin; Z79.899 Other long term (current) drug therapy
CPT/HCPCS: G0260

== ENCOUNTER 2017-04-22 07:07 | Emergency (ER) | payer OTHER ==
[~2017-04-22] VITALS: Ht 160 cm; Wt 56.7 kg
--- NOTE | ~2017-04-22 | EKG ---
[place] [address] [facility] [place] [address] ELECTROCARDIOGRAM REPORT Name: EVERTON ROMAN Room #: [facility]#: [id number] Admission: 04/22/17 Attend Phys: Discharge: Date of : 72 Report #: [id number] THIS REPORT FOR: //name// [facility] ED Test Date: 2017-04-22 Test Time: 08:28:49 Pat Name: EVERTON ROMAN Department: Room: Gender: F [employer] Member: [facility] : 1970 Requested By: Isabel Méndez Order Number: [id number] MD: Kevin Stone Measurements Intervals Marlow Rate: 100 P: 76 AK: 182 QRS: 9 QRSD: 114 T: 54 QT: 381 QTc: 492 Interpretive Statements Sinus tachycardia Intraventricular conduction delay Borderline prolonged QT interval Baseline wander in lead(s) V5 Compared to ECG 12/31/2016 20:46:08 Heart rate has increased Electronically Signed On 04-22-2017 8:58:41 ORTHODONTIC LABORATORY TECHNICIAN by Kevin Stone [email or web address] <ELECTRONICALLY SIGNED> By: Kevin Stone MD, [facility] 04/22/1758 7 7 Kevin Stone MD, [facility] /EPI
[~2017-04-22 07:07] MED LIST changes: -BACLOFEN 10MG T10 MG PO; -MULTI VITAMIN1 EACH PO; -NOVOLOG100 UNIT/M SUBQ; -ONDANSETRON HCL4 M2 PO; -RENVELA800 MG PO; -ROXICODONE5 MG PO; -ZOFRAN ODT4 MG PO
[2017-04-22 07:53] LABS: BASOPHILS 1.3 % (0.0-2.0); EOSINOPHILS 2.4 % (0.0-3.0); HEMATOCRIT 32.5 % (37.0-47.0); HEMOGLOBIN 10.9 gm/dL (12.0-15.0); LYMPHOCYTES 29.3 % (24.0-44.0); MCH 33.5 pg (26.0-34.0); MCHC 33.6 g/dL (28.0-37.0); MCV 99.7 fL (80.0-100.0); MONOCYTES 11.6 % (1.0-8.0); PLATELET COUNT 262 thou/uL (150-400); POLYS 55.4 % (36.0-66.0); RBC 3.27 mil/uL (4.20-5.00); RDW 13.9 % (10.5-14.5); WBC 5.4 thou/uL (4.0-11.0)
[2017-04-22 08:01] LABS: CALCIUM 8.7 mg/dL (8.5-10.1); MAGNESIUM 2.9 mg/dL (1.8-2.4)
[2017-04-22 08:03] LABS: POTASSIUM 7.6 mmol/L (3.5-5.1)
[2017-04-22 10:05] VITALS: BP 161/101
[2017-07-08] MEDS ORDERED: RENVELA800 MG PO (08:57)
[2017-07-08] MEDS ORDERED: NOVOLOG100 UNIT/M SUBQ (08:58)
[2017-07-08] MEDS ORDERED: TRAMADOL 50 MG50 MG PO (09:40)
[2017-09-07] MEDS ORDERED: ROXICODONE5 MG PO (09:24)
[2017-09-30] MEDS ORDERED: TRAMADOL 50 MG50 MG PO (15:21)
[2017-09-30] MEDS ORDERED: BACLOFEN 10MG T10 MG PO (15:21)
[2017-09-30] MEDS ORDERED: ROXICODONE5 MG PO (15:21)
[2017-11-07] MEDS ORDERED: REGLAN 10 MG TA10 MG PO (21:22)
[2017-11-09] MEDS ORDERED: ROXICODONE5 MG PO (15:10)
[2017-11-09] MEDS ORDERED: TRAMADOL 50 MG50 MG PO (15:13)
== END 2017-04-22 10:09 | disposition home or self-care (01) ==
LOC: ER 07:07
PROVIDERS: Emergency Medicine
DX: E87.5 Hyperkalemia (principal); M79.1 Myalgia; Z88.1 Allergy status to other antibiotic agents; Z88.8 Allergy status to other drugs, medicaments and biological substances; Z91.041 Radiographic dye allergy status

== ENCOUNTER → 2017-04-29 | Outpatient (CLI) | payer OTHER ==
[~2017-04-29] VITALS: Ht 180.3 cm; Wt 44.9 kg
[~2017-04-29] MED LIST changes: +BACLOFEN 10MG T10 MG PO; +MULTI VITAMIN1 EACH PO; +NOVOLOG100 UNIT/M SUBQ; +ONDANSETRON HCL4 M2 PO; +RENVELA800 MG PO; +ROXICODONE5 MG PO; +ZOFRAN ODT4 MG PO
--- NOTE | ~2017-04-29 | HPC ---
[facility] [address] [address] [place] [address] PAIN MANAGEMENT CONSULTATION Name: ELIZABETHSTANTONAMANDAWILLIAMEVERTON Room #: REG [facility].#: [id number] Admission: 04/29/17 Attend Phys: Brad Alexandra MD Discharge: Date of : 72 Report #: [id number] THIS REPORT FOR: //name// CC: [facility] physician/PCP Brad Alexandra DATE OF SERVICE: 05/04/2017 FOLLOWUP HISTORY: The patient is a 47-year-old female who has been seen in the pain clinic because of problematic low back pain as well as pain radiating down to her tailbone area. She also has some dull pain in her right shoulder blade. The patient was seen in the pain clinic on 04/13/2017. At that time, evaluation showed increased back pain with maneuvers of her pelvis. The patient complained of pain while sitting. She constantly stood and rock back and forth secondary to pain and discomfort in the hip area. Flexion of 15 degrees cause some pain in the low back area. She has limited lumbar extension. Left and right lateral bending cause some increased pain and discomfort in the lower portion of her back as well. She had a positive Go sign, which usually indicates SI joint irritation. Anterior spring testing and lateral spring testing, both causes increased pain and discomfort in the hip areas bilaterally in the SI joint area. The patient underwent an injection in the left as well as the right SI joint. She gleaned 4 days of significant improvement in her pain. She is now having pain that is radiating down the posterior portion of her back involving her legs, which she rates as a 10. Denies any problems with the last injection. At this juncture, because of the pain which is radiating down the posterior portion of her legs with radiation down the posterior portion, she would like to undergo another evaluation and treatment. ALLERGIES: PENICILLIN, BETADINE, ASPIRIN, TAPE, LES INHIBITORS CAUSE EDEMA. REVIEW OF CURRENT MEDICATIONS: Indicate continued insulin use using insulin pen, Phenergan 25 mg q. 6 hours p.r.n., insulin subcutaneously using a sliding scale, Coreg 12.5 mg b.i.d., gabapentin 100 mg at bedtime, Norvasc 5 mg, a total of 10 mg at bedtime. PHYSICAL EXAMINATION: GENERAL: The patient is a well-developed female who complains of pain and discomfort, but is not standing and shifting as much as she did at the prior visit. Appears her stated age. She is alert and oriented x 3. Affect appears appropriate, but the patient does show some signs of discomfort as well as continued facial grimacing during the interview. HEENT: Head is atraumatic. Extraocular eye muscles intact. Hearing is normal. No nasal concerns. Buccal membranes are moist. NECK: Without adenopathy or JVD. LUNGS: Clear to auscultation. [address] [address] PAIN MANAGEMENT CONSULTATION Name: JANINEAMANDAWILLIAMEVERTON T Room #: REG [facility].#: [id number] Admission: 04/29/17 Attend Phys: Brad Alexandra MD Discharge: Date of : 72 Report #: [id number] HEART: Heart rate is regular. ABDOMEN: Nontender. MUSCULOSKELETAL: The patient does not show evidence of scoliosis, no evidence of kyphosis, no evidence of lordosis. The patient continues to walk slowly and moves slowly. Her gait seems is antalgic. Forward bending to about 15 degrees cause some increased discomfort and pain, which radiates down posterior portion of her legs. Deep tendon reflexes are still +2 at the biceps and +5. Edgerman strength in the upper extremity. Straight leg raise is positive. The patient has less pain and discomfort with the Go's maneuver. Anterior and posterior spring testing are less problematic. The patient continues to have pain and discomfort in the right rhomboid area of her upper extremity and right shoulder. IMPRESSION: 1. Low back pain with discomfort radiating down into the L5-S1 distribution of her back. It appears that the SI joints are less problematic. 2. Hyperglycemia. The patient continues to monitor her blood glucose level. 3. Diabetic neuropathy. 4. End-stage renal disease with dialysis on Tuesday, Tuesday and Tuesday. 5. Myalgias. 6. Pain and discomfort in the right shoulder area. RECOMMENDATIONS: We discussed treatment options with the patient and her . Risks and benefits of an epidural steroid injection were discussed. The patient at this juncture has less complaint of pain radiating in the SI joint area. Her pain is more with pain that is radiating down the posterior portion of her leg down into the calf with numbness, tingling and a positive straight leg raise. At this juncture, I think it would be reasonable to proceed with an epidural steroid injection. Risks and benefits of the procedure were discussed with the patient. They include but are not limited to infection, increased muscle soreness, headache, bleeding, exacerbation of pain, nerve damage. She elects to proceed. The patient states that she has undergone dialysis. She has not received any heparin in the dialysate. PROCEDURE NOTE: The patient was placed in the prone position. Fluoroscopy was used to identify the L5/S1 interspace. Fluoroscopy used in the lateral as well as anterior and posterior viewing was used. The target area was noted. A 25-gauge needle was used to infiltrate this area. A 0.25% bupivacaine was infiltrated. A 17-gauge Tuohy with loss of resistance technique was used to gain access to the epidural space. There was no CSF, heme or paresthesia. A total of 80 mg of Depo-Medrol, 40 mg of triamcinolone and 2 mL of 0.5% bupivacaine was injected. The patient tolerated the procedure well. There were no complications. She remained in the pain clinic for an appropriate amount of [facility] [address] [place] [address] PAIN MANAGEMENT CONSULTATION Name: LANIWILLIAMEVERTON Zayda Room #: REG [facility]#: [id number] Admission: 04/29/17 Attend Phys: Brad Alexandra MD Discharge: Date of : 72 Report #: [id number] time. She will follow up in the future as needed. We would like to thank you for letting us participate in her care. We hope she continues to improve. <ELECTRONICALLY SIGNED> By: Brad Alexandra MD 05/25/17 1426 0921 0130 Brad Alexandra MD /AMY
[2017-04-29 12:37] VITALS: BP 114/65
== END ==
LOC: PAIN 09:38
DX: M54.5 Low back pain (principal); I12.0 Hypertensive chronic kidney disease with stage 5 chronic kidney disease or end stage renal disease; E11.22 Type 2 diabetes mellitus with diabetic chronic kidney disease; N18.6 End stage renal disease; M79.1 Myalgia; E11.40 Type 2 diabetes mellitus with diabetic neuropathy, unspecified; Z91.048 Other nonmedicinal substance allergy status; Z88.0 Allergy status to penicillin; Z88.8 Allergy status to other drugs, medicaments and biological substances; Z88.6 Allergy status to analgesic agent; Z99.2 Dependence on renal dialysis

== ENCOUNTER → 2017-07-08 | Outpatient (CLI) | payer OTHER ==
[~2017-07-08] VITALS: Ht 149.9 cm; Wt 55.3 kg
[~2017-07-08] MED LIST changes: -BACLOFEN 10MG T10 MG PO; -MULTI VITAMIN1 EACH PO; -ONDANSETRON HCL4 M2 PO; -ROXICODONE5 MG PO; -ZOFRAN ODT4 MG PO
--- NOTE | ~2017-07-08 | HPC ---
[facility] [place] [address] PAIN MANAGEMENT CONSULTATION Name: ABELEVERTON T Room #: REG GIANNA Og#: [id number] Admission: 07/08/17 Attend Phys: Brad Alexandra MD Discharge: Date of : 72 Report #: [id number] THIS REPORT FOR: //name// CC: JEOVANNY physician/PCP Brad Alexandra DATE OF SERVICE: 07/08/2017 FOLLOWUP HISTORY: The patient is a 47-year-old female who has been seen in the Pain Clinic. She has some history of low back pain. She has undergone epidural steroid injection in the past. She noted a significant amount of improvement. She has noted over the past few days worsening of her pain and discomfort. As you recall, she is on dialysis. She is unable to sit for any significant amount of time before pain becomes excruciating. She is unable to stand for the 4 hours of dialysis. At this juncture, she would like to proceed with another epidural steroid injection. She rates her pain today as a 10/10. She had no complications after the last epidural steroid injection. No bowel or sensory changes. The pain continues in its usual fashion and radiates in the posterior portion of her leg down into the left leg and buttocks. ALLERGIES: PENICILLIN, BETADINE, ASPIRIN, TAPE, LES INHIBITORS CAUSE EDEMA. REVIEW OF MEDICATIONS: Insulin Pen, Phenergan 25 mg q. 6 hours p.r.n., insulin subcutaneous sliding scale, the patient now has an indwelling insulin device; Coreg 12.5 mg b.i.d., gabapentin 100 mg at bedtime, and Norvasc 5 mg, a total of 10 mg Norvasc at home. PHYSICAL EXAMINATION: GENERAL: The patient is a well-developed female. She appears her stated age. She complained of pain and discomfort in the low back area with pain radiating down to the left leg. She is unable to sit because of the pain and discomfort. She continues to pace back and forth during the exam. She is alert and oriented x 3. Her affect shows one of pain with grimacing during the interview. Her is present. HEENT: Normocephalic, atraumatic. Extraocular eye muscles intact. Sclerae nonicteric. Hearing is within normal limits. Nasal mucosa is moist. Buccal membranes moist. NECK: Without adenopathy or JVD. LUNGS: Clear to auscultation. HEART: Regular rate and rhythm. ABDOMEN: Nontender. MUSCULOSKELETAL: The patient is without significant scoliosis, kyphosis, or lordosis. The patient walks slowly and walks with an antalgic gait favoring her left leg. Upper extremity muscle strength is within normal limits. The patient does have a shunt involving the left arm. [address] [address] PAIN MANAGEMENT CONSULTATION Name: EVERTON ROMAN [facility] [id number] Admission: 07/08/17 Attend Phys: Brad Alexandra MD Discharge: Date of : 72 Report #: [id number] IMPRESSION: 1. Low back pain, which has reoccurred, radiating down in the L5-S1 distribution of her back. 2. Hyperglycemia. The patient is now using an indwelling insulin device. 3. Diabetic neuropathy. 4. End-stage renal disease with dialysis on Tuesday, Tuesday and Tuesday. 5. Myalgias. 6. Pain and discomfort history in the right shoulder. PAIN CLINIC ASSESSMENT: 1. The patient is not being treated for osteoarthritis or arthritis. 2. Height 4 feet 11 inches, weight 55.3 kg, BMI is 24.8. 3. Vital signs: Blood pressure 134/95, pulse 95, respiratory rate 14, room air saturation 98%. 4. Pain intensity 10/10. 5. Fall risk. The patient states that she did fall and hurt her knee. 6. Blood thinner. The patient is not on a blood thinner. 7. History of hypertension. The patient is being treated for hypertension. 8. Opioid therapy greater than 6 weeks. The patient is not on opioid therapy contract. 9. Risk assessment tool. 10. Functional assessment tool. 11. Recreational drug use. Denies use of recreational drugs. 12. Tobacco. Denies use of tobacco. 13. Alcohol. Denies use of alcohol. RECOMMENDATIONS: We discussed treatment options with the patient. Risks and benefits of an epidural steroid injection were again reviewed. The patient and her feel that this will be a reasonable choice. Her pain has become quite problematic. She is unable to undergo dialysis secondary to being unable to sit in the chair. She has tried a number of chairs and positions and her pain continues to be problematic. She is experiencing pain, which is radiating down to posterior portion of her leg in the L5-S1 distribution. She would like to proceed with an injection. We will proceed with another epidural steroid injection. Risks and benefits of the procedure were again reviewed. They include but are not limited to infection, increased muscle soreness, headache, bleeding, nerve damage, spinal headache. The patient elects to proceed. PROCEDURE NOTE: The patient was taken to the pretreatment area. She was assisted in getting on the examination table. Her back was sterilely prepped with Betadine. Anterior and posterior viewing as well as lateral with fluoroscopy was used to confirm appropriate placement of the injection. Her back in the left paraspinous area of L5-S1 was identified. A 25-gauge needle was then advanced into this area. A total of 2 mL of 0.25% bupivacaine was injected. A 17-gauge Tuohy with loss of resistance technique was used to gain access. There was no CSF, heme or paresthesia. A total of 80 mg Depo-Medrol, [facility] [address] [place] [address] PAIN MANAGEMENT CONSULTATION Name: EVERTON ROMAN Room #: REG [facility]#: [id number] Admission: 07/08/17 Attend Phys: Brad Alexandra MD Discharge: Date of : 72 Report #: [id number] 40 mg triamcinolone, and 2 mL of 0.25% bupivacaine was injected. The patient tolerated the procedure well. There were no complications. She remained in the Pain Clinic for an appropriate amount of time. We would like to thank you for letting us to participate in her care. We hope she continues to improve. By: 0846 1710 Brad Alexandra MD /nt
[2017-07-08 08:59] VITALS: BP 134/95
== END | disposition home or self-care (01) ==
LOC: PAIN 05-27 13:04
DX: M54.16 Radiculopathy, lumbar region (principal); G89.29 Other chronic pain; E11.40 Type 2 diabetes mellitus with diabetic neuropathy, unspecified; E11.22 Type 2 diabetes mellitus with diabetic chronic kidney disease; N18.6 End stage renal disease; Z88.0 Allergy status to penicillin; Z88.8 Allergy status to other drugs, medicaments and biological substances; Z99.2 Dependence on renal dialysis; Z87.19 Personal history of other diseases of the digestive system; Z79.899 Other long term (current) drug therapy; Z79.4 Long term (current) use of insulin; Z98.890 Other specified postprocedural states

== ENCOUNTER → 2017-09-07 | Outpatient (CLI) | payer OTHER ==
[~2017-09-07] VITALS: Ht 149.9 cm; Wt 54.6 kg
[~2017-09-07] MED LIST changes: +ROXICODONE5 MG PO
--- NOTE | ~2017-09-07 | HPC ---
[facility] [place] [address] PAIN MANAGEMENT CONSULTATION Name: EVERTON ROMAN Room #: REG GIANNA Og#: [id number] Admission: 09/07/17 Attend Phys: Brad Alexandra MD Discharge: Date of : 72 Report #: [id number] THIS REPORT FOR: //name// CC: JEOVANNY physician/PCP Brad Alexandra DATE OF SERVICE: 09/07/2017 FOLLOWUP HISTORY: The patient is a 47-year-old female who has been seen in the pain clinic. As you recall, she has some problems with chronic pain. She has had lumbar radiculopathy in the past. She has undergone epidural steroid injections and gleaned benefits from these. Recently, she was walking down stairs. She stepped and made a missed magy. This yin her left leg. Started to notice pain and discomfort radiating down into the leg. She is experiencing numbness, tingling and leg weakness. Over the past 3 days, she has noticed that it has gotten ever worse. She has returned to the Pain Clinic for an injection. Yesterday, she fell while walking. She continues to undergo dialysis 3 times a week. She has returned today stating that her pain is a 10/10. She is unable to engage in activities of daily living. She has been very sedentary and is quite tearful because of the severity of pain. She has come to the pain clinic with the hopes of another epidural steroid injection to help with the pain. Pain is radiating down the posterior portion of her left buttocks and hamstring, calf and with numbness and tingling down in her feet into her foot. ALLERGIES: PENICILLIN, BETADINE, ASPIRIN, TAPE, LES INHIBITORS cause edema. CURRENT MEDICATIONS: Insulin pen, Phenergan 25 mg q. 6 hours p.r.n., insulin subcutaneous sliding scale. The patient has an indwelling insulin device, Coreg 12.5 mg b.i.d., gabapentin 100 mg at bedtime, Norvasc 5 mg, takes a total of 10 mg daily. PAIN CLINIC ASSESSMENT: 1. The patient is not being treated for osteoarthritis. 2. Height 4 feet 11 inches, weight 120 pounds, BMI is 24. 3. Vital signs: Blood pressure 111/76, pulse 108, respiratory rate 16, room air saturation is 100. 4. Pain intensity 12/21. 5. Fall risk. The patient fell yesterday. Notes that there was some weakness in her leg secondary to the pain after injuring her left leg. 6. Blood thinner. The patient is not on a blood thinning medication. 7. History of hypertension. The patient is being treated for hypertension. 8. Opioid greater than 6 weeks. The patient is not on an opioid contract. She is not using opioid medications daily, has used tramadol. 9. Risk assessment tool, low risk for opioid use. 10. Functional assessment tool 66/70 showing severe problems with activities of [address] [address] PAIN MANAGEMENT CONSULTATION Name: EVERTON ROMAN Room #: REG [facility]#: [id number] Admission: 09/07/17 Attend Phys: Brad Alexandra MD Discharge: Date of : 72 Report #: [id number] daily living secondary to the pain. 11. Recreational drug use. The patient denies use of recreational drugs. 12. Tobacco: The patient has never smoked cigarettes. 13. Alcohol use. The patient denies use of alcoholic beverages. PHYSICAL EXAMINATION: GENERAL: The patient is a well-developed, well-nourished black female. She appears her stated age. She is alert and oriented x 3. She is obviously in pain and discomfort. She is tearful during the interview. She is sitting with her left side off the chair because of pain and discomfort radiating down into the left posterior portion of her leg. Her is present. HEENT: Normocephalic, atraumatic. Extraocular eye muscles intact. Sclerae nonicteric. Hearing is within normal limits. Mucous membranes are moist. NECK: Without adenopathy or JVD. LUNGS: Clear to auscultation. HEART: Regular rate and rhythm. ABDOMEN: Nontender. MUSCULOSKELETAL: Without significant scoliosis, kyphosis or lordosis. The patient is unable to walk. Her helps to carry her and move her around. She continues to favor her left leg. Has pain and discomfort in the L5-S1 dermatomal distribution with numbness posterior leg, calf and down into the heel of her foot. Notes muscle strength to be 4/5 for the major muscle group on the left side 5/5 for the right side, but the patient has some pain and discomfort across her back from the left side to the right side. IMPRESSION: 1. Lumbar radiculopathy in the L5-S1 dermatomal distribution after a missed step while walking down stairs. 2. Hyperglycemia. The patient has an dwelling insulin device. 3. Diabetic neuropathy. 4. End-stage renal disease, on dialysis Tuesday, Tuesday and Tuesday. 5. Myalgias. 6. Pain and discomfort history in the right shoulder. RECOMMENDATIONS: We discussed treatment options with the patient and her . Risks and benefits of an epidural steroid injection were again discussed. The patient had gleaned improvement from the past injections. Noted some worsening of her pain after a missed step about 3 days ago. She has noted that the pain continues to worsen and rates her pain as a 10/10. She is unable to walk without some assistance. She is tearful during the interview. She sits leaning to the right side because of increased pain and discomfort radiating down into the left leg with a straight leg raise positive, on left side. RECOMMENDATIONS: We discussed treatment options. Risks and benefits of an epidural steroid injection were again reviewed. They include but are not limited to infection, increased muscle soreness, headache, bleeding, worsening [address] [address] PAIN MANAGEMENT CONSULTATION Name: EVERTON ROMAN Room #: REG [facility]#: [id number] Admission: 09/07/17 Attend Phys: Brad Alexandra MD Discharge: Date of : 72 Report #: [id number] of pain, no improvement in pain. The patient elects to proceed. She will not have heparin in the dialysis mixture when she goes for dialysis today and would like to proceed with that epidural steroid injection. PROCEDURE NOTE: The patient was taken to the procedure area. Her carried her into the examination area. He placed her on the table. She was assisted in getting in the appropriate position. Her back was sterilely prepped with a chlorhexidine solution. A 0.25% bupivacaine was infiltrated at the L5-S1 paraspinous area. Fluoroscopy using anterior, posterior as well as lateral viewing were used to identify the appropriate placement site. The patient tolerated the procedure well. This area was infiltrated with 0.25% bupivacaine. A 17-gauge Tuohy with loss of resistance technique was used to gain access to the epidural space. There was no CSF, heme or paresthesia. Total of 80 mg Depo-Medrol, 40 mg triamcinolone and 2 mL of 0.25% bupivacaine was injected. We would like to thank you for letting us participate in her care. She was taken to the recovery area and a bed. She remained for an appropriate amount of time. Pain decreased from 10 to 4 at the time of discharge. She will call us if she has any problems. She will be mindful to note any weakness after dialysis. We would like to thank you for letting us participate in her care. We hope she continues to improve. By: [id number] Brad Alexandra MD /celine
[2017-09-07 08:41] VITALS: BP 111/76
== END | disposition home or self-care (01) ==
LOC: PAIN 06:56
DX: M54.16 Radiculopathy, lumbar region (principal); G89.29 Other chronic pain; E11.40 Type 2 diabetes mellitus with diabetic neuropathy, unspecified; E11.65 Type 2 diabetes mellitus with hyperglycemia; E11.10 Type 2 diabetes mellitus with ketoacidosis without coma; E11.22 Type 2 diabetes mellitus with diabetic chronic kidney disease; N18.6 End stage renal disease; M79.1 Myalgia; D64.9 Anemia, unspecified; Z79.899 Other long term (current) drug therapy; Z79.4 Long term (current) use of insulin; Z88.0 Allergy status to penicillin; Z88.8 Allergy status to other drugs, medicaments and biological substances; Z98.890 Other specified postprocedural states

== ENCOUNTER → 2017-09-30 | Outpatient (CLI) | payer OTHER ==
[~2017-09-30] VITALS: Ht 149.9 cm; Wt 55.8 kg
[~2017-09-30] MED LIST changes: +BACLOFEN 10MG T10 MG PO; +MULTI VITAMIN1 EACH PO; +ONDANSETRON HCL4 M2 PO; +ZOFRAN ODT4 MG PO
--- NOTE | ~2017-09-30 | HPC ---
[facility] [place] [address] PAIN MANAGEMENT CONSULTATION Name: LANIWILLIAMEVERTON Room #: REG [facility] Earle#: [id number] Admission: 09/30/17 Attend Phys: Brad Alexandra MD Discharge: Date of : 72 Report #: [id number] THIS REPORT FOR: //name// CC: JEOVANNY physician/PCP Brad Kauffman DATE OF SERVICE: 09/30/2017 FOLLOWUP HISTORY: The pain has increased a bit. I ran out of medication. Having a lots of back muscle spasms. FOLLOWUP HISTORY: The patient is a 47-year-old female who has been followed in the pain clinic because of chronic lumbar radicular pain. She has undergone epidural steroid injections. With each of these, she has noted improvement. She underwent an epidural steroid injection after missing a step a few weeks ago. This yin her left leg. She has been experiencing some numbness and tingling with some weakness in her leg. She has noted some increased muscle spasms in her back. This is pretty much sidelined her at her home. She is unable to do activities. As you recall, she has diabetes. She is on dialysis. She would like to have her medications renewed and provide medications to help with the muscle spasms. ALLERGIES: PENICILLIN, BETADINE, ASPIRIN, TAPE, LES INHIBITORS, WHICH HAVE CAUSED EDEMA. CURRENT MEDICATIONS: Insulin pen, Phenergan 25 mg q.6 hours, insulin subcutaneous sliding scale. The patient has an indwelling insulin device to slowly administer insulin p.r.n., Coreg 12.5 mg b.i.d., gabapentin 100 mg at bedtime, Norvasc 5 mg to a total of 10 mg daily. PAIN CLINIC ASSESSMENT: 1. The patient is not being treated for osteoarthritis. 2. Height 4 feet 11 inches, weight 123 pounds, BMI is 24.8. 3. Vital signs: Blood pressure 163/96, pulse 110, respiratory rate 14, room air saturation 99%. 4. Pain intensity 12/21. 5. Fall risk. The patient has not fallen, but did miss a step few weeks ago when she was walking. 6. Blood thinner. The patient is not on a blood thinning medication. 7. History of hypertension. The patient is being treated for hypertension. 8. Opioid therapy greater than 6 weeks. The patient has been receiving opioid medication to help facilitate her pain control. 9. Risk assessment tool, low for opioid use. 10. Functional assessment tool 66/70. 11. Recreational drug use. The patient denies [place] [address] PAIN MANAGEMENT CONSULTATION Name: EVERTON ROMAN [facility] [id number] Admission: 09/30/17 Attend Phys: Brad Alexandra MD Discharge: Date of : 72 Report #: [id number] 12. Tobacco: The patient denies use of tobacco. 13. Alcohol: The patient denies use of alcoholic beverages. PHYSICAL EXAMINATION: GENERAL: The patient is a well-developed black female, appears her stated age. She appears in some discomfort. She is lying in her 's arms. She has some facial appearance of discomfort. Moves slowly and complains of pain and discomfort in the back area. HEENT: Normocephalic, atraumatic. Extraocular eye muscles intact. Sclerae nonicteric. Hearing is within normal limits. Mucous membranes are moist. NECK: Without adenopathy or JVD. LUNGS: Clear to auscultation. HEART: Regular rate and rhythm. ABDOMEN: Nontender. The patient has pain and discomfort in the back area with muscle spasms. MUSCULOSKELETAL: Without significant scoliosis, kyphosis, or lordosis. The patient uses support of her while walking. Does walk with an antalgic gait. Continues to have some pain and discomfort in the left leg. This was in the L5-S1 dermatomal distribution where her pain and discomfort was at the last visit. Muscle strength 4/5 for the major muscle groups in the lower extremity on the left and right side 5/5 for the major muscle groups. IMPRESSION: 1. Lumbar radiculopathy in the L5-S1 dermatomal distribution. After missing a step while walking down stairs. 2. Hypoglycemia. The patient does have indwelling insulin device. 3. Diabetic neuropathy. 4. End-stage renal disease, on dialysis Tuesday, Tuesday, and Tuesday. 5. Myalgias. 6. Pain and discomfort history in the right shoulder. RECOMMENDATIONS: We discussed treatment options with the patient and her . At this juncture, we will try baclofen for its antispasmodic properties. The patient will take 1 tablet p.o. b.i.d. She will also continue with tramadol 50 mg 1 p.o. t.i.d. as needed. The patient has been given a script for oxycodone 5 mg tablets 1 p.o. b.i.d. She will call us if she has any problems with her medications. We would like to thank you for letting us participate in her care. We hope she continues to improve. By: [id number] Brad Alexandra MD /PMT
[2017-09-30 14:46] VITALS: BP 163/96
== END ==
LOC: PAIN 06:55
DX: M54.16 Radiculopathy, lumbar region (principal); E11.40 Type 2 diabetes mellitus with diabetic neuropathy, unspecified; E16.2 Hypoglycemia, unspecified; N18.9 Chronic kidney disease, unspecified; M79.1 Myalgia; M25.511 Pain in right shoulder

== ENCOUNTER 2017-10-02 18:34 | Emergency (ER) | payer OTHER ==
[~2017-10-02] VITALS: Ht 149.9 cm; Wt 54.9 kg
[~2017-10-02 18:34] MED LIST changes: -MULTI VITAMIN1 EACH PO; -ONDANSETRON HCL4 M2 PO; -ZOFRAN ODT4 MG PO
[2017-10-02] MEDS ORDERED: ONDANSETRON HCL4 M2 PO (19:03)
[2017-10-02] MEDS ORDERED: MULTI VITAMIN1 EACH PO (19:03)
[2017-10-02 19:36] LABS: ABSOLUTE NEUTROPHILS 3.9 thou/uL (1.4-8.2); BASOPHILS 1.2 % (0.0-2.0); EOSINOPHILS 0.5 % (0.0-3.0); HEMATOCRIT 36.4 % (37.0-47.0); HEMOGLOBIN 12.2 gm/dL (12.0-15.0); LYMPHOCYTES 23.7 % (24.0-44.0); MCH 31.9 pg (26.0-34.0); MCHC 33.5 g/dL (28.0-37.0); MCV 95.2 fL (80.0-100.0); MONOCYTES 8.3 % (1.0-8.0); PLATELET COUNT 283 thou/uL (150-400); POLYS 66.3 % (36.0-66.0); RBC 3.82 mil/uL (4.20-5.00); RDW 14.8 % (10.5-14.5); WBC 5.8 thou/uL (4.0-11.0)
[2017-10-02 19:43] LABS: CALCIUM 8.8 mg/dL (8.5-10.1); CREATININE 9.1 mg/dL (0.6-1.0); POTASSIUM 4.5 mmol/L (3.5-5.1)
[2017-10-02 19:48] LABS: ALBUMIN 3.6 g/dL (3.4-5.0); DIRECT BILIRUBIN 0.2 mg/dL (<0.1-0.3); TOTAL BILIRUBIN 0.5 mg/dL (<0.1-1.0); TOTAL PROTEIN 7.7 g/dL (6.4-8.2)
[2017-10-02] MEDS ORDERED: PHENERGAN 25 MG25 M1 PO (20:18)
[2017-10-02] MEDS ORDERED: ZOFRAN ODT4 MG PO (20:18)
== END 2017-10-02 21:10 | disposition home or self-care (01) ==
LOC: ER 18:34
PROVIDERS: Emergency Medicine
DX: R11.2 Nausea with vomiting, unspecified (principal); I16.0 Hypertensive urgency; F11.20 Opioid dependence, uncomplicated; Z71.89 Other specified counseling; Z95.828 Presence of other vascular implants and grafts; Z88.8 Allergy status to other drugs, medicaments and biological substances; Z88.1 Allergy status to other antibiotic agents; Z88.6 Allergy status to analgesic agent; Z91.041 Radiographic dye allergy status; Z91.048 Other nonmedicinal substance allergy status

== ENCOUNTER → 2017-11-09 | Outpatient (CLI) | payer OTHER ==
[~2017-11-09] VITALS: Ht 149.9 cm; Wt 52.6 kg
[~2017-11-09] MED LIST changes: +MULTI VITAMIN1 EACH PO; +ONDANSETRON HCL4 M2 PO; +ZOFRAN ODT4 MG PO
--- NOTE | ~2017-11-09 | HPC ---
[facility] [place] [address] PAIN MANAGEMENT CONSULTATION Name: EVERTON ROMAN Room #: REG [facility]#: [id number] Admission: 11/09/17 Attend Phys: Brad Alexandra MD Discharge: Date of : 72 Report #: [id number] THIS REPORT FOR: //name// CC: [facility] physician/PCP Brad Kauffman MD DATE OF SERVICE: 12/11/2017 FOLLOWUP COMPLAINT: Return of back pain. FOLLOWUP HISTORY: The patient is a 47-year-old female who has been followed in the pain clinic because of chronic back pain. She suffers from lumbar radiculopathy. She has undergone epidural steroid injections. She has found benefits from these. Recently, she was seen in the Emergency Room. The patient noted increased nausea and vomiting as a result of some changes in her medications. She has stopped taking the medication and is having less of the nausea and vomiting. There is pain in the lower portion of her back with pain down the "tailbone and hip area. This radiates down into her left leg into the ankle. Describes it as a knife tight twisting pain with spasms in her back. Rates the pain intensity as a #11 on a scale of 1-10. Pain is made worse when she is sitting, walking and makes it very difficult for her to undergo dialysis. She has returned today for treatment. ALLERGIES: PENICILLIN, BETADINE ASPIRIN, TAPE, LES INHIBITORS THEY CAUSE EDEMA. CURRENT MEDICATIONS: Insulin, Phenergan 25 mg q.6 hours, insulin q. sliding scale. The patient has a insulin device, which slowly administered insulin p.r.n., Coreg 12.5 mg b.i.d., gabapentin 100 mg at bedtime, Norvasc 5 mg daily, Reglan 10 mg before meals, multivitamin, Renvela 800 mg t.i.d. PAIN CLINIC ASSESSMENT/PQRS 1. The patient is not being treated for osteoarthritis or rheumatoid arthritis. 2. Height 4 feet 11 inches, weight 116 pounds, BMI is 23. 3. Vital signs 110/70, pulse 109, respiratory rate 16, room air saturation is 100. 4. Pain intensity 11out of 10. 5. Fall risk. The patient has not fallen in the last 3 months. 6. Blood thinner. The patient is not on a blood thinning medication. 7. Hypertension. The patient is being treated for hypertension. 8. Opioid therapy. The patient does receive some oxycodone to the pain clinic. 9. Risk assessment tool with use of opioid medications. 10. Functional assessment tool 66/70 showing a major impact on her life secondary to chronic pain. 11. Tobacco: The patient denies use of tobacco. 12. Recreational drug use. The patient denies use of recreational drugs. [address] [address] PAIN MANAGEMENT CONSULTATION Name: ELIZABETHSTANTONEVERTON BRUCE Room #: REG GIANNA Og#: [id number] Admission: 11/09/17 Attend Phys: Brad Alexandra MD Discharge: Date of : 72 Report #: [id number] 13. Alcohol: The patient denies use of alcohol. PHYSICAL EXAMINATION: GENERAL: The patient is a well-developed black female, appears her stated age. She appears quite a bit of discomfort. Notes that she has to stand to decrease pain and discomfort, which is exacerbated when she is sitting. HEENT: Normocephalic, atraumatic. Extraocular muscles intact. Sclerae nonicteric. Hearing is within normal limits. Mucous membranes are moist. NECK: Without adenopathy or JVD. LUNGS: Clear to auscultation. HEART: Regular rate and rhythm. ABDOMEN: Nontender. Bowel sounds . MUSCULOSKELETAL: Without significant scoliosis, kyphosis or lordosis. The patient walks with an antalgic gait. Complains of pain and discomfort radiating down the L5-S1 distribution on the left side. Muscle strength on the left, judged to be 4/5 for the major muscle groups and 5/5 on the right. IMPRESSION: 1. Lumbar radiculopathy in the L5-S1 dermatomal distribution, which occurred while missing a step while walking down steps. 2. Hypoglycemia. The patient does have an NG swelling insulin device. 3. Diabetic neuropathy. 4. End-stage renal disease, on dialysis Tuesday, Tuesday, Fridays without use of heparin. 5. Myalgias. 6. The patient has pain and discomfort in the right shoulder. RECOMMENDATIONS: We discussed treatment options with the patient. At this juncture, pain continues to be quite problematic. She has gleaned benefit from an epidural steroid injection. She has returned today with the desire to undergo another epidural steroid injection. The patient states she has stopped taking the baclofen medication. I would like to proceed with an epidural steroid injection. Her is present and in agreement. Risk and benefits of the procedure were again reviewed. It could include, but is not limited to infection, increased muscle soreness, headache, bleeding, worsening of pain, no improvement in pain and the patient elects to proceed. PROCEDURE NOTE: The patient was taken to the procedure area. She was assisted in getting on the examination table. Her back was sterilely prepped with a Betadine solution. Fluoroscopy using anterior, posterior as well as lateral viewing were instituted. The patient's back was sterilely prepped with a Betadine solution and allowed to dry. A 0.25% bupivacaine was infiltrated at the L5-S1 area. A left paracentral approach was chosen. A 17-gauge Tuohy with loss of resistance technique was used to gain access to the epidural space. There was no CSF, heme or paresthesia. Total of 80 mg Depo-Medrol, 40 mg triamcinolone and 2 mL of 0.25% bupivacaine was injected. [place] [address] PAIN MANAGEMENT CONSULTATION Name: EVERTON ROMAN Room #: [facility]#: [id number] Admission: 11/09/17 Attend Phys: Brad Alexandra MD Discharge: Date of : 72 Report #: [id number] the procedure well. There were no complications. The patient's pain decreased to 7 down from 11 at the beginning. She will follow up in the future as needed. We would like to thank you for letting us participate in her care. We hope she continues to improve. <ELECTRONICALLY SIGNED> By: Brad Alexandra MD 12/26/17 1124 [id number] Brad Alexandra MD /AMY
[2017-11-09 14:22] VITALS: BP 110/70
== END | disposition home or self-care (01) ==
LOC: PAIN
DX: M54.16 Radiculopathy, lumbar region (principal); G89.29 Other chronic pain; I12.0 Hypertensive chronic kidney disease with stage 5 chronic kidney disease or end stage renal disease; E11.22 Type 2 diabetes mellitus with diabetic chronic kidney disease; N18.6 End stage renal disease; E11.10 Type 2 diabetes mellitus with ketoacidosis without coma; E11.40 Type 2 diabetes mellitus with diabetic neuropathy, unspecified; Z79.4 Long term (current) use of insulin; Z79.891 Long term (current) use of opiate analgesic; Z79.899 Other long term (current) drug therapy; Z98.890 Other specified postprocedural states; Z88.8 Allergy status to other drugs, medicaments and biological substances; Z91.040 Latex allergy status

== ENCOUNTER 2018-01-04 05:40 | Inpatient (IN) | payer OTHER ==
[~2018-01-04] VITALS: Ht 149.9 cm; Wt 62.6 kg
--- NOTE | ~2018-01-04 | EKG ---
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 MCNEAL : 1970 Requested By: Christine Holliday Order Number: [id number] MD: Kevin Stone Measurements Intervals [place] Rate: 93 P: 76 ND: 137 QRS: 55 QRSD: 92 T: 78 QT: 390 QTc: 486 Interpretive Statements Sinus rhythm Borderline prolonged QT interval Compared to ECG 04/22/2017 08:28:49 Sinus tachycardia no longer present Intraventricular conduction delay no longer present Electronically Signed On 01-04-2018 8:09:10 CDT by Kevin Stone [email or web address] <ELECTRONICALLY SIGNED> By: Kevin Stone MD, [facility] 01/04/18 0809 0632 0632 Kevin Stone MD, [facility] /EPI
--- NOTE | ~2018-01-04 | PATH ---
[facility] [address] [address] [address] PATHOLOGY RPT PROCEDURE Name: ABELCHARIS T Room #: 457-P [facility] IN M.R.#: [id number] Admission: 01/04/18 Date of : 72 Discharge: Report #: [id number] Path Case #: [id number] [facility] Accession Number: [id number] . 01 Material submitted: . GASTRIC BIOPSY . 01 Clinical history: . Abnormal pain, GI bleed, anemia, gastric erosions, esophageal and duodenal ulcers, rule out H. pylori . 02 Diagnosis: Gastric biopsy "gastric biopsy": - Mild chronic reactive gastropathy. - There is no evidence of atypia or malignancy. - The immunoperoxidase stain for Helicobacter pylori is negative. . (SHA:kelvin; 01/11/2018) QMS/01/11/2018 . 02 Comment: There are no gastric erosions or ulcerations seen. . 02 Electronically signed: . Nas Kelsey MD, Pathologist NPI- [id number] . 01 Gross description: . The specimen is received in formalin, labeled "Charis Fisher, gastric biopsies, rule out H. pylori", are several camacho soft tissues measuring 1.0 x 0.4 x 0.1 cm in aggregate, entirely submitted in A1. (SWS; 01/10/2018) SHS/SHS . 02 Pathologist provided ICD-10: K31.9 . 02 CPT . 514244, Z09534 Specimen Comment: A courtesy copy of this report has been sent to Specimen Comment: [phone], . Specimen Comment: Report sent to / DR PRIETO Specimen Comment: A duplicate report has been generated due to demographic updates. Performed at: [address] [id number] [address] [place] [address] PATHOLOGY RPT PROCEDURE Name: CHARIS FISHER Room #: 457-P [facility] IN M.R.#: [id number] Admission: 01/04/18 Date of : 72 Discharge: Report #: [id number] Path Case #: [id number] MD Jan Yin MD Phone: [phone] Performed at: [address] [id number] MD Maryann Calzada MD Phone: [phone]
--- NOTE | ~2018-01-04 | HC ---
[facility] [place] [address] CONSULTATION Name: EVERTON ROMAN Room #: 457-P ADM IN M.R.#: [id number] Admission: 01/04/18 Attend Phys: Melvin Cruz MD Discharge: Date of : 72 Report #: [id number] THIS REPORT FOR: //name// CC: Melvin Cruz [facility] physician/PCP DATE OF SERVICE: 01/04/2018 REASON FOR CONSULTATION: End-stage renal disease. HISTORY OF PRESENT ILLNESS: The patient is well known to our service with end-stage renal disease, severe; longstanding poorly controlled diabetes with diabetic triopathy. She has been on dialysis for several years. She has rather severe gastroparesis, difficult to control blood sugar. She has an insulin pump. ____ dialysis 2 days ago, she developed nausea, vomiting, which persisted then she developed diffuse muscle aches and pains. She was brought to the hospital and she was given some IV saline and potassium and admitted. PAST MEDICAL HISTORY: Again, well known to our service. Course has been complicated by rather severe gastroparesis, neuropathy. She has had C. diff colitis in the past as well and she has had a localized thoracic nerve neuropathy, which has caused a lot of back and flank pain in the past as well. She also has chronic pain, has been to the pain clinic many times, has had steroid injections in her back as well. FAMILY HISTORY: Positive for diabetes and hypertension. SOCIAL HISTORY: No substantial drug or alcohol abuse. Lives at home with her . HOME MEDICATIONS: As listed include carvedilol 12.5 mg b.i.d., insulin pump, oxycodone 5 mg every 4-6 hours, Renvela 1 with meals t.i.d. and tramadol. REVIEW OF SYSTEMS: GENERAL: She has been quite ill. EYES: Her vision has been reasonably good. ENT: Hearing okay. Swallows okay. No mouth sores. ENDOCRINE: Positive for diabetes. RESPIRATORY: She is not short-winded, no pleuritic pain. CARDIAC: No chest pain, angina, swelling or heart failure. No arrhythmias. GASTROINTESTINAL: She has had the nausea and vomiting. No diarrhea of late. GENITOURINARY: Makes very little urine. NEUROLOGIC: She has got the peripheral neuropathy diffuse muscle pains. MUSCULOSKELETAL: Again diffuse myalgias, but CPK is okay. [facility] [address] [place] [address] CONSULTATION Name: JANINEAMANDAWILLIAMEVERTON T Room #: 457-P [facility] IN .R.#: [id number] Admission: 01/04/18 Attend Phys: Melvin Cruz MD Discharge: Date of : 72 Report #: [id number] ASSESSMENT AND PLAN: 1. End-stage renal disease. We will dialyze today gently. 2. Nausea and vomiting with dehydration. IV saline indicated. She has had trouble with diarrhea when given IV metoclopramide in the past. I suspect this would be a successful therapy to get her to at least stop vomiting temporarily, so we will start that up pending further consideration. 3. Diabetes mellitus with triopathy. 4. Chronic pain syndrome. <ELECTRONICALLY SIGNED> By: Tyrese Escobedo MD 01/12/18 1108 1009 2240 Tyrese Escobedo MD /nt
--- NOTE | ~2018-01-04 | HC ---
[facility] [place] [address] CONSULTATION Name: EVERTON ROMAN Room #: 457-P ADM IN M.R.#: [id number] Admission: 01/04/18 Attend Phys: Melvin Cruz MD Discharge: Date of : 72 Report #: [id number] THIS REPORT FOR: //name// CC: Melvin Cruz [facility] physician/PCP ENDOCRINE CONSULTATION The patient of [facility], room 457. ADMITTING DOCTOR: Melvin Cruz MD SUBJECTIVE: A 47-year-old black female admitted for nausea and vomiting. Historically, the patient states she has had diabetes since age 18 and has been on insulin ever since. She was switched to an insulin pump several years ago and is currently using a T-Slim pump. The basal rate is significantly elevated at 0.4 units per hour continuously without change and the patient states she uses the bolus dose calculator and administers 3-7 units depending on a variety of factors. She generally eats 3 meals per day. Her weight has been slowly increasing. She does snack frequently. Her activity level is limited. She monitors her glucose on a regular basis and the values are generally in the mid to high 200s, but recently have been in the 300-400 range. The patient has a history of gastroparesis and reports several days of persistent nausea and vomiting, which she states is different than her gastroparesis. The patient has been on dialysis for several years, 3 times per week, otherwise she is unable to state a recent hemoglobin A1c. She does state she is followed by an electric needle specialist who she sees regularly. She has no other information regarding her degree of glucose control. As mentioned, the patient was admitted with several days of nausea and vomiting and upon admission to the Emergency Room was found to have significant hyperglycemia with glucoses in the 500 and above range. She was also found to be dehydrated. She was placed on a variety of insulin doses and did receive one dosage of glargine insulin last evening. Of note is the fact that the insulin pump was discontinued by the patient prior to her arrival at the Emergency Room. Otherwise, the patient is unable to provide any useful past or family medical history. OBJECTIVE: LABORATORY DATA: As above and per chart. PHYSICAL EXAMINATION: GENERAL: Well-nourished, well-developed 47-year-old black female in no acute distress. The patient is alert and oriented x 3 and able to answer questions without difficulty, although she provides limited medical information. [address] [address] CONSULTATION Name: EVERTON ROMAN Room #: 457-P [facility] [place] ..#: [id number] Admission: 01/04/18 Attend Phys: Melvin Cruz MD Discharge: Date of : 72 Report #: [id number] VITAL SIGNS: Height is reported to be 4 feet 11 inches and weight 150 pounds. The patient is afebrile, heart rate 110 and regular and blood pressure 160/100. SKIN: Warm and moist without irregularity. There is slightly decreased turgor. The remainder of the exam is essentially noncontributory. ASSESSMENT: 1. Type 1 diabetes and apparently chronically poor control with recent exacerbation due to nausea and vomiting. 2. Complications of diabetes including autonomic neuropathy with gastroparesis. 3. Exogenous obesity, most likely due to hyperphagia from excessive insulin administration on a continuous level by insulin pump. PLAN: 1. Will evaluate prior control with a hemoglobin A1c and also check for endogenous insulin secretion with C-peptide level. 2. Will place the patient on q.i.d. insulin dosages with bedtime Glargine. It will take some time for the glargine to equilibrate therefore insulin doses will be slightly higher than would otherwise be needed. 3. Meanwhile, will place the patient on appropriate diet to allow for slow gradual sustainable weight reduction and would allow for reduction in chronic insulin dosage. We will have the patient receive full dietary education from the hospital dietary services. Thank you very much for this consultation. I will continue to follow the patient with you for attempted improvement in diabetes regulation. <ELECTRONICALLY SIGNED> By: Osiel Young MD 01/07/18 1346 1351 0425 Osiel Young MD /nt
--- NOTE | ~2018-01-04 | HC ---
[facility] [place] [address] CONSULTATION Name: EVERTON ROMAN Room #: 457-P [facility] IN M.R.#: [id number] Admission: 01/04/18 Attend Phys: Melvin Cruz MD Discharge: Date of : 72 Report #: [id number] THIS REPORT FOR: //name// CC: Melvin Cruz MD [facility] physician/PCP DATE OF SERVICE: 01/07/2018 HISTORY OF PRESENT ILLNESS: The patient is a 47-year-old female with a long history of insulin-dependent diabetes; gastroparesis; chronic abdominal pain; also with renal failure, on hemodialysis Tuesday, Tuesday and Tuesday; was admitted on 01/04/2018 with persistent nausea, vomiting and elevated glucose levels. The patient has been treated with Zofran since admission without much improvement apparently in her nausea and vomiting. She states she has a previous history of rash due to Reglan. Erythromycin has now been started today. An NG tube was just placed. She also complains of abdominal pain in general. Her blood glucose levels have been significantly elevated. Endocrinology is following at this time. Her last level on blood draw was 539 and today's levels, however, 114, 76 and 134. She states her bowel movements have been fairly normal. She denies any fevers or chills. She was seen by my partner, Dr. Abreu last year in June for elevated liver function tests and a positive KARLI. 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 At that time, was having abdominal pain and C. diff gastroparesis as well as constipation. PAST MEDICAL HISTORY: Insulin-dependent diabetes; renal failure, on dialysis Tuesday, Tuesday and Tuesday; history of AV graft; previous tubal ligation in 1992; hypertension; gastroparesis and history of insulin pump. MEDICATIONS ON ADMISSION: Oxycodone, Ultram, Coreg, Renvela and NovoLog. ALLERGIES: To LES INHIBITORS, AMOXICILLIN, ASPIRIN, SOAP, TAPE, IODINE from BETADINE and she states a rash with REGLAN. REVIEW OF SYSTEMS: As per HPI. SOCIAL HISTORY: She denies any tobacco or alcohol use. FAMILY HISTORY: Negative for colon cancer. PHYSICAL EXAMINATION: VITAL SIGNS: Temperature is 98.6, pulse 81, blood pressure 100/60 and respiratory rate is 18. GENERAL: She is alert and oriented x 3, in no acute distress. [address] [address] CONSULTATION Name: EVERTON ROMAN Room #: 457-P [facility] IN [facility]#: [id number] Admission: 01/04/18 Attend Phys: Melvin Cruz MD Discharge: Date of : 72 Report #: [id number] HEENT: Sclerae nonicteric. Oropharynx clear. Nasogastric tube is in place. There is a small amount of bilious clear drainage in the canister. CARDIOVASCULAR: Regular rate and rhythm. CHEST: Clear to auscultation anteriorly bilaterally. ABDOMEN: Soft. She is mildly distended. She is tender to palpation. Positive bowel sounds. EXTREMITIES: No cyanosis, clubbing or edema. LABORATORY DATA: Sodium 130, potassium 4.4, chloride 94, bicarb is 18, BUN 41 and creatinine 5.8. Most recent glucose is 134. LFTs were normal on January 04. WBC 6.1, hemoglobin 10.3 and platelet count is 205. ASSESSMENT AND PLAN: Nausea and vomiting. The patient with a history of gastroparesis, suspect the etiology of her nausea and vomiting. Glucose levels are now improving. Hopefully, this will also improve her nausea and vomiting. Agree with nasogastric tube, which has recently been placed. The only promotility agent available for the patient is erythromycin and this has been started today. Agree with this plan. She is unable to tolerate Reglan due to rash apparently in the past. She is already on Zofran at this time. We will continue to follow closely. Thank you for allowing me to participate in her care. <ELECTRONICALLY SIGNED> By: David Naik MD 01/08/18 0933 1434 0349 David Naik MD /nt
[2018-01-04 05:49] VITALS: BP 117/60
[2018-01-04 06:21] LABS: ABSOLUTE NEUTROPHILS 4.7 thou/uL (1.4-8.2); EOSINOPHILS 0.2 % (0.0-3.0); HEMATOCRIT 34.3 % (37.0-47.0); HEMOGLOBIN 11.4 gm/dL (12.0-15.0); MCH 30.4 pg (26.0-34.0); MCHC 33.3 g/dL (28.0-37.0); MCV 91.1 fL (80.0-100.0); MONOCYTES 9.2 % (1.0-8.0); PLATELET COUNT 237 thou/uL (150-400); POLYS 65.6 % (36.0-66.0); RBC 3.76 mil/uL (4.20-5.00); RDW 15.5 % (10.5-14.5); WBC 7.2 thou/uL (4.0-11.0)
[2018-01-04 06:32] LABS: CREATININE 7.6 mg/dL (0.6-1.0); POTASSIUM 3.8 mmol/L (3.5-5.1)
[2018-01-04 06:34] LABS: BE(vivo) -6.7 mmol/L (-2 to +3); HCO3 18.2 mmol/L (22.0-26.0); PCO2 VENOUS 34.2 mmHg (41.0-51.0); PO2 VENOUS 66.2 mmHg (35.0-45.0)
[2018-01-04 06:39] LABS: ALBUMIN 3.2 g/dL (3.4-5.0); TOTAL BILIRUBIN 0.6 mg/dL (<0.1-1.0); TOTAL PROTEIN 6.9 g/dL (6.4-8.2)
[2018-01-04 07:44] VITALS: BP 110/62
[2018-01-04 07:59] VITALS: BP 110/62
[2018-01-04 08:30] VITALS: BP 120/60
[2018-01-04 15:00] VITALS: BP 113/61
[2018-01-04 19:17] VITALS: BP 120/63
[2018-01-05 03:09] VITALS: BP 113/63
[2018-01-05 05:33] LABS: HEMATOCRIT 32.5 % (37.0-47.0); HEMOGLOBIN 10.3 gm/dL (12.0-15.0); MCH 29.7 pg (26.0-34.0); MCHC 31.7 g/dL (28.0-37.0); MCV 93.6 fL (80.0-100.0); RBC 3.48 mil/uL (4.20-5.00); RDW 15.6 % (10.5-14.5); WBC 6.1 thou/uL (4.0-11.0)
[2018-01-05 05:43] LABS: ALBUMIN 2.6 g/dL (3.4-5.0); CALCIUM 8.3 mg/dL (8.5-10.1); PHOSPHORUS 4.3 mg/dL (2.5-4.9)
[2018-01-05 05:44] LABS: POTASSIUM 5.1 mmol/L (3.5-5.1)
[2018-01-05 07:12] VITALS: BP 139/76
[2018-01-05 15:20] VITALS: BP 144/88
[2018-01-05 20:50] VITALS: BP 137/87
[2018-01-06 04:28] VITALS: BP 172/105
[2018-01-06 06:34] LABS: ALBUMIN 2.6 g/dL (3.4-5.0); CALCIUM 8.3 mg/dL (8.5-10.1); PHOSPHORUS 4.2 mg/dL (2.5-4.9); POTASSIUM 4.4 mmol/L (3.5-5.1)
[2018-01-06 06:44] LABS: CREATININE 5.8 mg/dL (0.6-1.0)
[2018-01-06 08:00] VITALS: BP 163/103
[2018-01-06 16:00] VITALS: BP 148/99
[2018-01-06 18:11] LABS: GLYCOHEMOGLOBIN (HGB A1C) 8.7 % (4.8-5.6)
[2018-01-06 19:26] VITALS: BP 136/88
[2018-01-07] VITALS (7 sets, daily range): BP systolic 100–191; BP diastolic 48–118
[2018-01-08 04:06] VITALS: BP 185/119
[2018-01-08 07:29] VITALS: BP 182/116
[2018-01-08 09:38] LABS: HEMATOCRIT 40.3 % (37.0-47.0); HEMOGLOBIN 13.4 gm/dL (12.0-15.0); MCH 30.5 pg (26.0-34.0); MCHC 33.1 g/dL (28.0-37.0); MCV 91.9 fL (80.0-100.0); RBC 4.38 mil/uL (4.20-5.00); RDW 15.2 % (10.5-14.5)
[2018-01-08 09:59] LABS: CALCIUM 9.3 mg/dL (8.5-10.1); CREATININE 5.7 mg/dL (0.6-1.0); MAGNESIUM 2.4 mg/dL (1.8-2.4)
[2018-01-08 15:15] VITALS: BP 135/88
[2018-01-08 19:14] VITALS: BP 173/109
[2018-01-09 00:02] VITALS: BP 178/115
[2018-01-09 02:00] VITALS: BP 184/90
[2018-01-09 03:58] VITALS: BP 163/103
[2018-01-09 07:45] VITALS: BP 180/101
[2018-01-09 09:42] LABS: ABSOLUTE NEUTROPHILS 5.7 thou/uL (1.4-8.2); BASOPHILS 0.4 % (0.0-2.0); EOSINOPHILS 0.1 % (0.0-3.0); HEMATOCRIT 37.2 % (37.0-47.0); HEMOGLOBIN 12.5 gm/dL (12.0-15.0); LYMPHOCYTES 11.6 % (24.0-44.0); MCH 30.6 pg (26.0-34.0); MCHC 33.5 g/dL (28.0-37.0); MCV 91.4 fL (80.0-100.0); MONOCYTES 4.1 % (1.0-8.0); PLATELET COUNT 183 thou/uL (150-400); POLYS 83.8 % (36.0-66.0); RBC 4.07 mil/uL (4.20-5.00); RDW 15.3 % (10.5-14.5); WBC 6.8 thou/uL (4.0-11.0)
[2018-01-09 09:48] LABS: CALCIUM 8.9 mg/dL (8.5-10.1); POTASSIUM 3.8 mmol/L (3.5-5.1)
[2018-01-09 09:49] LABS: CREATININE 3.6 mg/dL (0.6-1.0)
[2018-01-09 16:37] VITALS: BP 151/79
[2018-01-09 19:29] VITALS: BP 189/99
[2018-01-10] VITALS (7 sets, daily range): BP systolic 116–154; BP diastolic 75–96
[2018-01-10 18:12] LABS: ABSOLUTE NEUTROPHILS 3.2 thou/uL (1.4-8.2); BASOPHILS 0.5 % (0.0-2.0); EOSINOPHILS 2.2 % (0.0-3.0); HEMATOCRIT 33.3 % (37.0-47.0); HEMOGLOBIN 10.9 gm/dL (12.0-15.0); LYMPHOCYTES 25.4 % (24.0-44.0); MCH 30.6 pg (26.0-34.0); MCHC 32.7 g/dL (28.0-37.0); MCV 93.4 fL (80.0-100.0); PLATELET COUNT 222 thou/uL (150-400); POLYS 64.9 % (36.0-66.0); RBC 3.57 mil/uL (4.20-5.00); RDW 15.9 % (10.5-14.5)
[2018-01-11 04:32] VITALS: BP 112/59
[2018-01-11 06:08] LABS: PHOSPHORUS 3.4 mg/dL (2.5-4.9)
[2018-01-11 06:13] LABS: CREATININE 4.8 mg/dL (0.6-1.0)
[2018-01-11 13:18] LABS: HEMATOCRIT 27.4 % (37.0-47.0); HEMOGLOBIN 9.1 gm/dL (12.0-15.0); MCH 31.1 pg (26.0-34.0); MCHC 33.4 g/dL (28.0-37.0); RBC 2.95 mil/uL (4.20-5.00); RDW 15.7 % (10.5-14.5); WBC 4.5 thou/uL (4.0-11.0)
[2018-01-11 16:00] VITALS: BP 136/70
[2018-01-11 19:13] VITALS: BP 134/74
[2018-01-12 02:43] VITALS: BP 110/67
[2018-01-12 06:14] LABS: HEMATOCRIT 28.7 % (37.0-47.0); HEMOGLOBIN 9.4 gm/dL (12.0-15.0); MCH 30.3 pg (26.0-34.0); MCHC 32.9 g/dL (28.0-37.0); PLATELET COUNT 236 thou/uL (150-400); RBC 3.12 mil/uL (4.20-5.00); RDW 15.6 % (10.5-14.5); WBC 4.2 thou/uL (4.0-11.0)
[2018-01-12 07:32] LABS: ABSOLUTE NEUTROPHILS 1.8 thou/uL (1.4-8.2)
[2018-01-12 07:33] LABS: ANISOCYTOSIS 1+
[2018-01-12 08:25] VITALS: BP 146/59
[2018-01-12 08:35] VITALS: BP 142/83
[2018-01-12 15:40] VITALS: BP 145/91
[2018-01-12 19:08] VITALS: BP 162/89
[2018-01-13 00:53] LABS: ALBUMIN 2.4 g/dL (3.4-5.0); CALCIUM 8.1 mg/dL (8.5-10.1); CREATININE 5.3 mg/dL (0.6-1.0); PHOSPHORUS 3.9 mg/dL (2.5-4.9); POTASSIUM 5.3 mmol/L (3.5-5.1)
[2018-01-13 01:51] LABS: HEMATOCRIT 32.9 % (37.0-47.0); HEMOGLOBIN 10.5 gm/dL (12.0-15.0); MCH 29.6 pg (26.0-34.0); MCHC 31.9 g/dL (28.0-37.0); MCV 92.8 fL (80.0-100.0); RBC 3.54 mil/uL (4.20-5.00); RDW 15.4 % (10.5-14.5); WBC 5.6 thou/uL (4.0-11.0)
[2018-01-13 05:04] VITALS: BP 150/88
[2018-01-13 07:30] VITALS: BP 150/84
[2018-01-13 14:30] VITALS: BP 114/71
[2018-01-13 18:23] VITALS: BP 114/71
== END 2018-01-13 21:00 | disposition home or self-care (01) | DRG 380 ==
LOC: ER 05:40 → EROBS 07:35 → 4W 07:35
PROVIDERS: Emergency Medicine; Hospitalist; Internal Medicine Endocrinology, Diabetes & Metabolism; Internal Medicine Nephrology; Nurse Practitioner; Nurse Practitioner Acute Care; Nurse Practitioner Family; Student in an Organized Health Care Education/Training Program
PROC: 5A1D70Z Performance of Urinary Filtration, Intermittent, Less than 6 Hours Per Day (ICD-10-PCS; principal; 2018-01-04)
PROC: 5A1D70Z Performance of Urinary Filtration, Intermittent, Less than 6 Hours Per Day (ICD-10-PCS; 2018-01-06)
PROC: 5A1D70Z Performance of Urinary Filtration, Intermittent, Less than 6 Hours Per Day (ICD-10-PCS; 2018-01-08)
PROC: 5A1D70Z Performance of Urinary Filtration, Intermittent, Less than 6 Hours Per Day (ICD-10-PCS; 2018-01-09)
PROC: 0DB68ZX Excision of Stomach, Via Natural or Artificial Opening Endoscopic, Diagnostic (ICD-10-PCS; 2018-01-10)
PROC: 5A1D70Z Performance of Urinary Filtration, Intermittent, Less than 6 Hours Per Day (ICD-10-PCS; 2018-01-11)
PROC: 5A1D70Z Performance of Urinary Filtration, Intermittent, Less than 6 Hours Per Day (ICD-10-PCS; 2018-01-13)
DX: K22.10 Ulcer of esophagus without bleeding (principal); N18.6 End stage renal disease; E87.3 Alkalosis; E87.2 Acidosis; I12.0 Hypertensive chronic kidney disease with stage 5 chronic kidney disease or end stage renal disease; E11.43 Type 2 diabetes mellitus with diabetic autonomic (poly)neuropathy; K92.1 Melena; K31.84 Gastroparesis; E86.0 Dehydration; G89.4 Chronic pain syndrome; E11.22 Type 2 diabetes mellitus with diabetic chronic kidney disease; E66.09 Other obesity due to excess calories; K63.9 Disease of intestine, unspecified; K76.0 Fatty (change of) liver, not elsewhere classified; K25.9 Gastric ulcer, unspecified as acute or chronic, without hemorrhage or perforation; K26.9 Duodenal ulcer, unspecified as acute or chronic, without hemorrhage or perforation; Z88.6 Allergy status to analgesic agent; Z88.1 Allergy status to other antibiotic agents; Z88.8 Allergy status to other drugs, medicaments and biological substances; Z83.3 Family history of diabetes mellitus; Z82.49 Family history of ischemic heart disease and other diseases of the circulatory system; Z68.27 Body mass index [BMI] 27.0-27.9, adult; Z79.4 Long term (current) use of insulin; Z79.891 Long term (current) use of opiate analgesic; Z99.2 Dependence on renal dialysis
CPT/HCPCS: 10045; 10047; 32100; 62110; 62900; 70005

== ENCOUNTER 2018-01-27 17:43 | Inpatient (IN) | payer OTHER ==
[~2018-01-27] VITALS: Ht 149.9 cm; Wt 55.7 kg
--- NOTE | ~2018-01-27 | EKG ---
[address] [address] ELECTROCARDIOGRAM REPORT Name: EVERTON ROMAN Room #: 359-P [facility]..#: [id number] Admission: 01/27/18 Attend Phys: Issa Harden MD Discharge: 01/29/18 Date of : 72 Report #: [id number] THIS REPORT FOR: //name// [facility] ED Test Date: 2018-01-27 Test Time: 18:38:21 Pat Name: EVERTON JOHNSONSTANTONJANIS Department: Room: [facility] Gender: F Cotton Tier: as : 1970 Requested By: Christine Holliday Order Number: [id number] MD: Hernán Jimenez Measurements Intervals Onset Rate: 92 P: 58 AL: 142 QRS: 33 QRSD: 105 T: 65 QT: 425 QTc: 526 Interpretive Statements Sinus rhythm Probable left atrial enlargement Borderline low voltage, extremity leads Compared to ECG 01/04/2018 06:32:22 No significant changes Electronically Signed On 01-29-2018 20:20:47 CLUTCH OPERATOR by Hernán Jimenez [email or web address] <ELECTRONICALLY SIGNED> By: Hernán Jimenez MD 01/29/182019 37 37 Hernán Jimenez MD /EPI
--- NOTE | ~2018-01-27 | HC ---
[facility] [place] [address] CONSULTATION Name: LANIWILLIAMEVERTON Room #: 359-P ADM IN M.R.#: [id number] Admission: 01/27/18 Attend Phys: Issa Harden MD Discharge: Date of : 72 Report #: [id number] THIS REPORT FOR: //name// CC: [facility] physician/PCP Issa Harden REASON FOR CONSULTATION: End-stage renal disease. REASON FOR PRESENTATION: Abdominal pain. HISTORY OF PRESENT ILLNESS: This is a very well-known patient to me. She is known to have end-stage renal disease due to long-term diabetes mellitus. She suffered from all complications related to diabetes mellitus, including diabetic retinopathy, diabetic gastroparesis. She is dialyzing every Tuesday, Tuesday and Tuesday. She had gastric emptying starting back in 2016, consistent with diabetic gastroparesis. She was not able to go to her dialysis unit because of persistent abdominal pain, facial swelling and vomiting. She was admitted to be further evaluated. PAST MEDICAL HISTORY: 1. Diabetes mellitus. 2. End-stage renal disease, maintained on hemodialysis. 3. Gastroparesis. 4. Esophagitis. 5. Peptic ulcer disease. 6. AV graft with numerous procedures. 7. Hypotension. MEDICATIONS: 1. Carvedilol. 2. Sevelamer. 3. NovoLog. 4. Pantoprazole. ALLERGIES: 1. AMOXICILLIN. 2. ASPIRIN. 3. LES INHIBITOR. 4. METOCLOPRAMIDE. FAMILY HISTORY: Significant for hypertension and diabetes mellitus. SOCIAL HISTORY: She lives with her . REVIEW OF SYSTEMS: GENERAL: No fever or chills. CARDIOVASCULAR: No chest pain or palpitations. [facility] [address] [place] [address] CONSULTATION Name: EVERTON ROMAN Room #: 359-P ADM IN .R.#: [id number] Admission: 01/27/18 Attend Phys: Issa Harden MD Discharge: Date of : 72 Report #: [id number] PULMONARY: No cough or hemoptysis. GASTROINTESTINAL: As per the history of present illness. GENITOURINARY: No frequency, no urgency. PHYSICAL EXAMINATION: GENERAL: Alert, oriented, in no apparent distress. VITAL SIGNS: Blood pressure 107/60. HEENT: Facial swelling present. CHEST: Bilaterally decreased air entry. ABDOMEN: Soft and nontender. LOWER EXTREMITIES: With +1 edema. LABORATORY DATA: Laboratory values reviewed. Sodium 131, potassium 2.6, BUN 19 and creatinine 6.7. AST mildly elevated at 42, ALT is mildly elevated at 85. Lactic acid was elevated when she presented at 6; however, repeat was down to 2.0. ASSESSMENT, IMPRESSION AND PLAN: 1. End-stage renal disease. 2. Gastroparesis. 3. Diabetes mellitus. 4. Hypokalemia. 5. Anemia. 6. We will arrange for the patient to have dialysis today. 7. Usual treatment for her gastroparesis. 8. Unfortunately, this has been a recurrent problem with her. She does have major noncompliance issues. Most recent blood sugars in the 400 range. She completely understands the long-term complications of her blood sugar being out of control. She recently had utilized insulin pump; however, there seems to be some issues related to that and she is calling the manufacturers to check on her insulin pump. 9. Defer the management of her other medical issues to the primary admitting team. By: 0830 1030 Laure López MD /nt
[2018-01-27 17:56] VITALS: BP 168/102
[2018-01-27 18:24] LABS: BE(vivo) -1.5 mmol/L (-2 to +3); HCO3 21.6 mmol/L (22.0-26.0); PCO2 VENOUS 30.9 mmHg (41.0-51.0); PO2 VENOUS 57.2 mmHg (35.0-45.0)
[2018-01-27] MEDS ORDERED: PROTONIX40 M1 PO (18:25)
[2018-01-27 18:27] LABS: HEMATOCRIT 28.7 % (37.0-47.0); HEMOGLOBIN 9.9 gm/dL (12.0-15.0); MCH 31.2 pg (26.0-34.0); MCHC 34.3 g/dL (28.0-37.0); MCV 90.9 fL (80.0-100.0); RBC 3.16 mil/uL (4.20-5.00); RDW 14.8 % (10.5-14.5); WBC 3.8 thou/uL (4.0-11.0)
[2018-01-27 18:41] LABS: ALBUMIN 2.7 g/dL (3.4-5.0); ANION GAP 16 mmol/L (7-16); BUN 19 mg/dL (7-18); CALCIUM 9.4 mg/dL (8.5-10.1); CHLORIDE 91 mmol/L (98-107); CO2 24 mmol/L (21-32); CREATININE 6.7 mg/dL (0.6-1.0); GLUCOSE 190 mg/dL (74-106); LIPASE 75 U/L (73-393); SGOT 42 U/L (15-37); SGPT 85 U/L (30-65); SODIUM 131 mmol/L (136-145); TOTAL BILIRUBIN 0.6 mg/dL (<0.1-1.0); TOTAL PROTEIN 6.1 g/dL (6.4-8.2); TROPONIN-I <0.06 ng/mL (<0.06)
[2018-01-27 18:42] LABS: POTASSIUM 2.6 mmol/L (3.5-5.1)
[2018-01-27 21:31] VITALS: BP 130/73
[2018-01-27 21:36] VITALS: BP 137/81
[2018-01-27 22:00] VITALS: BP 141/83
[2018-01-28 00:42] VITALS: BP 131/76
[2018-01-28 04:00] VITALS: BP 107/60
[2018-01-28 07:05] VITALS: BP 94/43
[2018-01-28 16:35] VITALS: BP 135/73
[2018-01-28 19:55] VITALS: BP 129/78
[2018-01-29 03:50] VITALS: BP 121/69
[2018-01-29 07:34] VITALS: BP 93/53
[2018-01-29] MEDS ORDERED: MIDODRINE HCL 55 M1 PO (11:23)
[2018-01-29 11:58] LABS: HEMATOCRIT 31.8 % (37.0-47.0); HEMOGLOBIN 9.7 gm/dL (12.0-15.0); MCH 30.1 pg (26.0-34.0); MCHC 30.5 g/dL (28.0-37.0); MCV 98.6 fL (80.0-100.0); RBC 3.23 mil/uL (4.20-5.00); RDW 16.3 % (10.5-14.5); WBC 3.3 thou/uL (4.0-11.0)
[2018-01-29 12:07] LABS: CALCIUM 8.7 mg/dL (8.5-10.1); MAGNESIUM 2.1 mg/dL (1.8-2.4); POTASSIUM 5.4 mmol/L (3.5-5.1)
[2018-01-29 12:09] LABS: CREATININE 4.2 mg/dL (0.6-1.0)
[2018-01-29 12:32] VITALS: BP 102/59
[2018-01-29 13:47] VITALS: BP 102/59
[2018-01-30] MEDS ORDERED: RENAL VITAMIN0.8 MG PO (18:51)
== END 2018-01-29 18:49 | disposition home or self-care (01) | DRG 391 ==
LOC: ER 17:43 → EROBS 21:09 → 3W 22:04
PROVIDERS: Internal Medicine; Student in an Organized Health Care Education/Training Program
PROC: 5A1D70Z Performance of Urinary Filtration, Intermittent, Less than 6 Hours Per Day (ICD-10-PCS; principal; 2018-01-28)
DX: K31.84 Gastroparesis (principal); N18.6 End stage renal disease; I12.0 Hypertensive chronic kidney disease with stage 5 chronic kidney disease or end stage renal disease; E87.2 Acidosis; F11.20 Opioid dependence, uncomplicated; E11.43 Type 2 diabetes mellitus with diabetic autonomic (poly)neuropathy; E87.6 Hypokalemia; K20.9 Esophagitis, unspecified; D64.9 Anemia, unspecified; E11.22 Type 2 diabetes mellitus with diabetic chronic kidney disease; E11.319 Type 2 diabetes mellitus with unspecified diabetic retinopathy without macular edema; K58.9 Irritable bowel syndrome, unspecified; E11.42 Type 2 diabetes mellitus with diabetic polyneuropathy; K27.9 Peptic ulcer, site unspecified, unspecified as acute or chronic, without hemorrhage or perforation; R74.0 Nonspecific elevation of levels of transaminase and lactic acid dehydrogenase [LDH]; G89.4 Chronic pain syndrome; T40.605A Adverse effect of unspecified narcotics, initial encounter; Y92.89 Other specified places as the place of occurrence of the external cause; Z87.11 Personal history of peptic ulcer disease; Z79.4 Long term (current) use of insulin; Z91.15 Patient's noncompliance with renal dialysis; Z79.899 Other long term (current) drug therapy; Z88.6 Allergy status to analgesic agent; Z99.2 Dependence on renal dialysis; Z88.1 Allergy status to other antibiotic agents; Z91.041 Radiographic dye allergy status; Z88.8 Allergy status to other drugs, medicaments and biological substances; Z91.048 Other nonmedicinal substance allergy status; Z82.49 Family history of ischemic heart disease and other diseases of the circulatory system; Z83.3 Family history of diabetes mellitus
CPT/HCPCS: 10879; 32100

== ENCOUNTER 2018-01-30 17:32 | Inpatient (IN) | payer OTHER ==
[~2018-01-30] VITALS: Ht 149.9 cm; Wt 57.2 kg
[2018-01-30] VITALS (8 sets, daily range): BP systolic 94–139; BP diastolic 40–67
--- NOTE | ~2018-01-30 | EKG ---
[address] [address] ELECTROCARDIOGRAM REPORT Name: EVERTON ROMAN Room #: 247-P ADM IN M.R.#: [id number] Admission: 01/30/18 Attend Phys: Brennon George MD Discharge: Date of : 72 Report #: [id number] THIS REPORT FOR: //name// [facility] ED Test Date: 2018-01-30 Test Time: 18:46:38 Pat Name: EVERTON ROMAN Department: Room: [facility] Gender: F Wafer Line Worker: LINNEA : 1970 Requested By: Micaela Castillo Order Number: [id number] MD: Kevin Stone Measurements Intervals Hernando Rate: 91 P: 74 AL: 147 QRS: 69 QRSD: 91 T: 35 QT: 395 QTc: 487 Interpretive Statements Sinus rhythm Low voltage, extremity leads Borderline prolonged QT interval Baseline wander in lead(s) V1 Compared to ECG 01/27/2018 18:38:21 No significant changes Electronically Signed On 01-31-2018 8:49:10 INSULATION NOZZLEMAN by Kevin Stone [email or web address] <ELECTRONICALLY SIGNED> By: Kevin Stone MD, [facility] 01/31/18 0849 1846 1846 Kevin Stone MD, [facility] /EPI
[~2018-01-30 17:32] MED LIST changes: +PROTONIX40 M1 PO
[2018-01-30 18:25] LABS: HEMOGLOBIN 9.9 gm/dL (12.0-15.0); MCH 29.7 pg (26.0-34.0); RBC 3.34 mil/uL (4.20-5.00)
[2018-01-30 18:27] LABS: HEMATOCRIT 31.7 % (37.0-47.0); MCHC 31.3 g/dL (28.0-37.0); MCV 94.8 fL (80.0-100.0); PLATELET COUNT 208 thou/uL (150-400); RDW 15.6 % (10.5-14.5); WBC 5.2 thou/uL (4.0-11.0)
[2018-01-30 18:28] LABS: CALCIUM 9.7 mg/dL (8.5-10.1)
[2018-01-30 18:32] LABS: CREATININE 6.2 mg/dL (0.6-1.0); POTASSIUM 6.5 mmol/L (3.5-5.1)
[2018-01-30 18:35] LABS: ALBUMIN 3.1 g/dL (3.4-5.0); DIRECT BILIRUBIN 0.2 mg/dL (<0.1-0.3); TOTAL BILIRUBIN 0.8 mg/dL (<0.1-1.0); TOTAL PROTEIN 6.3 g/dL (6.4-8.2)
[2018-01-30 18:51] LABS: BE(vivo) -13.1 mmol/L (-2 to +3); HCO3 11.2 mmol/L (22.0-26.0); PCO2 VENOUS 22.1 mmHg (41.0-51.0); PO2 VENOUS 68.6 mmHg (35.0-45.0)
[2018-01-30] MEDS ORDERED: RENAL VITAMIN0.8 MG PO (18:51)
[2018-01-30 18:56] LABS: ABSOLUTE NEUTROPHILS 4.3 thou/uL (1.4-8.2)
[2018-01-30 18:57] LABS: ANISOCYTOSIS 1+
[2018-01-30 21:42] LABS: ALBUMIN 2.6 g/dL (3.4-5.0); CALCIUM 8.9 mg/dL (8.5-10.1); CREATININE 6.2 mg/dL (0.6-1.0); PHOSPHORUS 2.1 mg/dL (2.5-4.9); POTASSIUM 4.4 mmol/L (3.5-5.1)
[2018-01-31] VITALS (22 sets, daily range): BP systolic 75–143; BP diastolic 42–77
[2018-01-31 00:30] LABS: ALBUMIN 2.5 g/dL (3.4-5.0); CALCIUM 8.1 mg/dL (8.5-10.1); CREATININE 5.9 mg/dL (0.6-1.0); MAGNESIUM 1.8 mg/dL (1.8-2.4); PHOSPHORUS 1.7 mg/dL (2.5-4.9); POTASSIUM 4.7 mmol/L (3.5-5.1)
[2018-01-31 06:46] LABS: ALBUMIN 2.8 g/dL (3.4-5.0); CALCIUM 9.2 mg/dL (8.5-10.1); CREATININE 6.3 mg/dL (0.6-1.0); PHOSPHORUS 1.6 mg/dL (2.5-4.9)
[2018-02-01] VITALS (7 sets, daily range): BP systolic 88–163; BP diastolic 49–105
[2018-02-01 06:52] LABS: HEMOGLOBIN 9.1 gm/dL (12.0-15.0)
[2018-02-01 06:54] LABS: HEMATOCRIT 26.8 % (37.0-47.0); MCH 30.9 pg (26.0-34.0); MCHC 34.1 g/dL (28.0-37.0); MCV 90.5 fL (80.0-100.0); PLATELET COUNT 169 thou/uL (150-400); RBC 2.96 mil/uL (4.20-5.00); RDW 15.3 % (10.5-14.5); WBC 3.4 thou/uL (4.0-11.0)
[2018-02-01 07:09] LABS: ALBUMIN 2.7 g/dL (3.4-5.0); CREATININE 7.2 mg/dL (0.6-1.0); TOTAL BILIRUBIN 0.6 mg/dL (<0.1-1.0); TOTAL PROTEIN 5.1 g/dL (6.4-8.2)
[2018-02-01 08:59] LABS: ABSOLUTE NEUTROPHILS 2.1 thou/uL (1.4-8.2)
[2018-02-01 09:02] LABS: ANISOCYTOSIS 1+; HYPOCHROMASIA 1+
[2018-02-01] MEDS ORDERED: PERCOCET PO (13:41)
== END 2018-02-01 17:32 | disposition home health service (06) | DRG 637 ==
LOC: ER 17:32 → ICU 19:17 → EROBS 19:17 → ICU 20:07 → 3W 01-31 18:05
PROVIDERS: Internal Medicine; Nurse Practitioner Acute Care; Physician Assistant
PROC: 5A1D70Z Performance of Urinary Filtration, Intermittent, Less than 6 Hours Per Day (ICD-10-PCS; principal; 2018-01-30)
DX: E11.10 Type 2 diabetes mellitus with ketoacidosis without coma (principal); N18.6 End stage renal disease; F11.20 Opioid dependence, uncomplicated; I12.0 Hypertensive chronic kidney disease with stage 5 chronic kidney disease or end stage renal disease; E11.65 Type 2 diabetes mellitus with hyperglycemia; E11.22 Type 2 diabetes mellitus with diabetic chronic kidney disease; E11.42 Type 2 diabetes mellitus with diabetic polyneuropathy; D64.9 Anemia, unspecified; E11.43 Type 2 diabetes mellitus with diabetic autonomic (poly)neuropathy; K31.84 Gastroparesis; K27.9 Peptic ulcer, site unspecified, unspecified as acute or chronic, without hemorrhage or perforation; G89.4 Chronic pain syndrome; E87.5 Hyperkalemia; I95.89 Other hypotension; K20.9 Esophagitis, unspecified; Z79.4 Long term (current) use of insulin; Z88.6 Allergy status to analgesic agent; Z88.1 Allergy status to other antibiotic agents; Z88.8 Allergy status to other drugs, medicaments and biological substances; Z83.3 Family history of diabetes mellitus; Z84.1 Family history of disorders of kidney and ureter; Z99.2 Dependence on renal dialysis
CPT/HCPCS: 10078; 10779; 32100

== ENCOUNTER 2018-02-14 16:59 | Inpatient (IN) | payer OTHER ==
[~2018-02-14] VITALS: Ht 149.9 cm; Wt 52.0 kg
--- NOTE | ~2018-02-14 | EEG ---
[facility] [place] [address] ELECTROENCEPHALOGRAM Name: EVERTON ROMAN Room #: 358-P [facility] IN M.R.#: [id number] Admission: 02/14/18 Attend Phys: Melvin Cruz MD Discharge: 02/23/18 Date of : 72 Report #: [id number] THIS REPORT FOR: //name// CC: Melvin FRANZ DATE OF SERVICE: 02/23/2018 This patient's EEG was done by placing the electrode by standard 10-20 system of electrode placement. Both referential and sequential montages were used for recording. Background activity is up to about 8-9 Hz and 30 microvolt. The patient is asleep during part of this EEG and that demonstrated bilateral vertex sharp waves and slowing. Photic stimulation was unremarkable. Throughout the record, no active epileptiform activity was noticed. IMPRESSION: The patient's EEG continued to demonstrate bilateral slowing, but it continued to improve gradually. No active epileptiform activity was noticed during this record. <ELECTRONICALLY SIGNED> By: Kyle Wilkins MD 02/28/18 1447 1230 1237 Kyle Wilkins MD /nt
--- NOTE | ~2018-02-14 | EEG ---
[facility] [place] [address] ELECTROENCEPHALOGRAM Name: EVERTON ROMAN Room #: 358-P [facility] IN M.R.#: [id number] Admission: 02/14/18 Attend Phys: Melvin Cruz MD Discharge: 02/23/18 Date of : 72 Report #: [id number] THIS REPORT FOR: //name// CC: Melvin FRANZ DATE OF SERVICE: 02/21/2018 This patient is being evaluated for altered mental status. EEG was done by placing the electrode by standard 10-20 system of electrode placement. Both referential and sequential montages were used for recording. Background activity in this patient's EEG is about 7-8 Hz and 30 microvolt. The patient goes to sleep and EEG appeared to become slow. It is difficult to tell clinically asleep because she is so drowsy. She does appear to have what looked like triphasic waves. I discussed with the hydrology technician and it does not look like it has any eye movement that time. IMPRESSION: This is an abnormal EEG because it is pretty slow on both sides. That can occur with encephalopathy, effect of psychotropic medication, dementia, etc. Some triphasic waves are also present, which may represent encephalopathy, but it is difficult to distinguish that from artifact from the eye. <ELECTRONICALLY SIGNED> By: Kyle Wilkins MD 02/28/18 1447 1330 1431 MD arthur Armstrong
--- NOTE | ~2018-02-14 | HC ---
[facility] [place] [address] CONSULTATION Name: LANIWILLIAMEVERTON Priest Room #: 358-P [facility] IN .R.#: [id number] Admission: 02/14/18 Attend Phys: Melvin Cruz MD Discharge: 02/23/18 Date of : 72 Report #: [id number] THIS REPORT FOR: //name// CC: Melvin FRANZ DATE OF SERVICE: 02/22/2018 HISTORY OF PRESENT ILLNESS: The patient is a 47-year-old -[place] female with end-stage renal disease, on hemodialysis, admitted to [facility], noted to have insulin-dependent diabetes mellitus, peptic ulcer disease, chronic back pain, peripheral neuropathy, began feeling sick to her stomach, low blood sugar, nausea, vomiting, or chills. Apparently, a code stroke was called and she became unresponsive. She was noted to have low blood sugar. She was diagnosed with potential encephalopathy from hypoglycemia. She had an MRI of the brain, which revealed a possible left subacute infarct body of the corpus callosum. Psychiatry saw her as there is a question as to whether she was having a conversion disorder. Psychiatry was less inclined to think that this was conversion. A spinal tap was considered by Neurology and held as she was starting to feel better. Able to follow simple commands. We are seeing her in rehabilitation medicine consultation. PAST MEDICAL HISTORY: Hepatomegaly with steatosis. She has had nonbleeding gastric erosions and a large nonbleeding duodenal ulcer per EGD on 01/10/2018. She has had a history of diabetic ketoacidosis. She is noted to have an insulin pump, insulin-dependent diabetes, gastroparesis, peripheral neuropathy, anemia, chronic pain with opiate usage. ALLERGIES: AMOXICILLIN, ASPIRIN, TAPE, LES INHIBITOR, REGLAN, SOAP. MEDICATIONS: Please see the full medication listing which is noted to include vitamins, herbals, and supplements. HABITS: No history of tobacco or alcohol abuse. SOCIAL HISTORY: Lives with her , house, premorbid walker ambulator. Per her history, the does not work outside the home and is there with her and drives her to dialysis. I am not able to confirm this at this time. REVIEW OF SYSTEMS: Complains of low back pain. No current complaints of chest pain, shortness of breath, or abdominal discomfort. PHYSICAL EXAMINATION: GENERAL: A 47-year-old -[place] female, in no obvious distress. VITAL SIGNS: Last recorded temperature 98.3, pulse 93, respirations 16, and blood pressure 107/62. She is sleepy, but easily arouses. She can follow basic [facility] [address] [place] [address] CONSULTATION Name: EVERTON ROMAN Room #: 358-P [facility].#: [id number] Admission: 02/14/18 Attend Phys: Melvin Cruz MD Discharge: 02/23/18 Date of : 72 Report #: [id number] 1 step commands. She is soft spoken and there is a definite latency to her responses. HEENT: EOMs appeared to be full. EXTREMITIES: She does have some swelling of the left hand. She is currently undergoing dialysis. No obvious focal weakness with gentle testing. Right upper extremity functional range of motion, strength is a grade 4- to 3+/5. Tone otherwise appeared to be intact. Lower extremities, no focal calf swelling, functional range of motion, strength is a grade 3+ distally. Appears to have weakness with ankle dorsiflexion 3+, some eversion weakness 3+. Sensation appeared to be decreased at the large toe. Functionally, she is mod assist rolling to the right, max assist with setting. ASSESSMENT: A 47-year-old -[place] female with the following problem list: 1. Encephalopathy apparently multifactorial. 2. Possible left subacute infarct, body of the corpus callosum. 3. Functional mobility, ADLs and cognitive deficits. 4. Insulin-dependent diabetes mellitus, on insulin. 5. Question of gastroparesis. 6. Chronic back pain. 7. End-stage renal disease, on hemodialysis. 8. History of peptic ulcer disease with gastric and duodenal ulcers. 9. Hypertension. 10. Peripheral neuropathy. PLAN: OT is to evaluate, acute days will need to be checked. I am uncertain if she has the tolerance for an acute in-hospital inpatient rehabilitation stay, but we will follow along with you as she may be a rehab candidate. Again, we will be glad to follow along with you. <ELECTRONICALLY SIGNED> By: Osiel Billingsley MD 03/02/18 1144 1106 1718 Osiel Billingsley MD /nt
--- NOTE | ~2018-02-14 | HC ---
[facility] [place] [address] CONSULTATION Name: LANIWILLIAMEVERTON Room #: 358-P [facility] IN M.R.#: [id number] Admission: 02/14/18 Attend Phys: Melvin Cruz MD Discharge: 02/23/18 Date of : 72 Report #: [id number] THIS REPORT FOR: //name// CC: Melvin FRANZ REASON FOR CONSULTATION: End-stage renal disease. REASON FOR PRESENTATION: Low blood sugar. HISTORY OF PRESENT ILLNESS: Very well-known patient to me. She is 47-year-old who is maintained on hemodialysis every Tuesday, Tuesday and Tuesday. She suffers from all complications related to diabetes mellitus including gastroparesis, diabetic retinopathy, diabetic nephropathy. She is maintained on hemodialysis utilizing a left-sided upper extremity AV graft. She has had repeated admissions with many complications including hypoglycemia, hyperglycemia, gastroparesis. She is utilizing an insulin pump; however, her blood sugar is very labile and she has had repeated admissions related to her blood sugar issues. She was not feeling well at 2:00 yesterday, she checked her blood sugar and her blood sugar was about 42. This was accompanied by sweating and dizziness. She called the EMS and found herself to be in the hospital. She turned her insulin pump off and was brought to further evaluate. She was supposed to see her ctc operator today. She is supposed to have her dialysis done today. PAST MEDICAL AND SURGICAL HISTORY: 1. End-stage renal disease. 2. Diabetes mellitus with all long-term complications. 3. Esophageal ulcers. 4. Gastroparesis. 5. Duodenal ulcers. 6. Left AV graft. 7. Tubal ligation. 8. Diabetes mellitus. 9. Gastroparesis. 10. Anemia. 11. Chronic pain. FAMILY HISTORY: Mom is diabetic and there is a strong family history of end-stage renal disease. SOCIAL HISTORY: She lives with her . No drug or alcohol abuse. MEDICATIONS: 1. Carvedilol. 2. Pantoprazole. 3. Insulin pump. [facility] [address] [place] [address] CONSULTATION Name: EVERTON ROMAN Room #: 358-P [facility] IN ..#: [id number] Admission: 02/14/18 Attend Phys: Melvin Cruz MD Discharge: 02/23/18 Date of : 72 Report #: [id number] 4. Multivitamins. REVIEW OF SYSTEMS: GENERAL: No fever or chills, but significant for weakness and dizziness. CARDIOVASCULAR: No chest pain or palpitation. PULMONARY: No cough or hemoptysis. GASTROINTESTINAL: As per history of present illness. GENITOURINARY: She is anuric. MUSCULOSKELETAL: No back pain, no morning stiffness. ALLERGIES: NUMEROUS INCLUDING LES INHIBITORS, ASPIRIN, BETADINE SOAP. PHYSICAL EXAMINATION: GENERAL: She is alert, oriented, in no apparent distress. VITAL SIGNS: Blood pressure is 149/90, however, when she presented yesterday, her blood pressure was in the 200 range. She is afebrile, temperature was 36.6. HEAD AND NECK: No jugular venous distention. Right triple lumen catheter is present. CHEST: No crackles. CARDIOVASCULAR: No rub detected. ABDOMEN: Soft, nontender. LOWER EXTREMITIES: No edema. LABORATORY DATA: Reviewed. Potassium is 2.8, BUN is 8, creatinine is 4.4. White blood cell count is 2.8, hemoglobin is 8.6. Chest x-ray reviewed. ASSESSMENT: 1. End-stage renal disease. 2. Hypoglycemia, symptomatic. 3. Abnormal laboratories, which I seriously doubt those are her labs including leukopenia, hypokalemia. 4. Uncontrolled diabetes mellitus. PLAN: 1. We will arrange for the patient to have her usual dialysis today. 2. We will rectify her potassium with the dialysis. 3. I doubt those labs are valid and we will ask the nurses to repeat in the morning. 4. Continue to address her blood sugar per the primary team. 5. Repeated hospitalizations with major social issues. <ELECTRONICALLY SIGNED> By: Laure López MD 02/27/18 0635 0729 0748 Laure López MD /nt
--- NOTE | ~2018-02-14 | 2DMMODE ---
[facility] [address] [place] [address] 2 D/M-MODE ECHOCARDIOGRAM Name: EVERTON ROMAN Room #: 358-P [facility] IN M.R.#: [id number] Admission: 02/14/18 Attend Phys: Melvin Cruz MD Discharge: Date of : 72 Date of Service: 02/21/18 1527 Report #: [id number] THIS REPORT FOR: //name// APPROVED REPORT Study performed: 02/21/2018 13:40:29 EXAM: Comprehensive 2D, Doppler, and color-flow Echocardiogram Patient Location: Bedside Room #: 358 Status: routine BSA: 1.45 HR: 92 bpm BP: 85/45 mmHg Rhythm: NSR Other Information Study Quality: Good Indications CVA/TIA Diabetes Hypertension/HDD Echo Enhancing Agent Indication: Rule out Shunt Agent(s) / Amount(s) Used: Agitated Saline 7 cc 2D Dimensions RVDd: 27.79 mm IVSd: 9.99 (7-11mm) LVOT Diam: 17.75 (18-24mm) LVDd: 39.69 mm PWd: 10.11 (7-11mm) Ascending Ao: 24.52 (22-36mm) LVDs: 19.91 (25-40mm) Aortic Root: 26.40 mm IVC: 18.00 mm Volumes Left Atrial Volume (Systole) Single Plane 4CH: 23.16 mL Single Plane 2CH: 30.38 mL LA ESV Index: 23.00 mL/m2 Aortic Valve AoV Peak Robert.: 1.86 m/s AO Peak Gr.: 13.83 mmHg LVOT Max P.00 mmHg LVOT Max V: 1.22 m/s [facility] [place] [place] [address] 2 D/M-MODE ECHOCARDIOGRAM Name: EVERTON ROMAN Room #: 358-P [facility] IN ..#: [id number] Admission: 02/14/18 Attend Phys: Mlevin Cruz MD Discharge: Date of : 72 Date of Service: 02/21/18 1527 Report #: [id number] [id number] Vmax: 1.63 cm2 Mitral Valve E/A Ratio: 1.3 MV Decel. Time: 233.00 ms MV E Max Robert.: 1.19 m/s MV A Robert.: 0.94 m/s MV PHT: 67.57 ms IVRT: 59.98 ms Pulmonary Valve PV Peak Robert.: 0.95 m/s PV Peak Gr.: 3.66 mmHg Pulmonary Vein P Vein S: 0.65 m/s P Vein A: 0.26 m/s P Vein D: 0.48 m/s P Vein A Dur.: 101.5 msec P Vein S/D Ratio: 1.35 Tricuspid Valve TR Peak Robert.: 2.86 m/s TR Peak Gr.: 32.74 mmHg PA Pressure: 38.00 mmHg Left Ventricle The left ventricle is normal size. There is normal LV segmental wall motion. Borderline concentric left ventricular hypertrophy. The left ventricular systolic function is normal. The left ventricular ejection fraction is within the normal range. LVEF is 60-65%. The left ventricular diastolic function is normal. Right Ventricle The right ventricle is normal size. The right ventricular systolic function is normal. Atria The left atrium size is normal. A possible patent foramen ovale present The right atrium size is normal. Aortic Valve The aortic valve is normal in structure. No aortic regurgitation is present. There is no aortic valvular stenosis. Mitral Valve The mitral valve is normal in structure. There is no mitral valve regurgitation noted. No evidence of mitral valve stenosis. [facility] [address] [address] 2 D/M-MODE ECHOCARDIOGRAM Name: ELIZABETHSTANTONAMANDAWILLIAMEVERTON Zayda Room #: 358-P [facility] IN .#: [id number] Admission: 02/14/18 Attend Phys: Melvin Cruz MD Discharge: Date of : 72 Date of Service: 02/21/18 1527 Report #: [id number] Tricuspid Valve The tricuspid valve is normal in structure. There is mild tricuspid regurgitation. Estimated PAP 38 mmHg. There is mild pulmonary hypertension. Pulmonic Valve The pulmonary valve is normal in structure. There is no pulmonic valvular regurgitation. Great Vessels The aortic root is normal in size. IVC is normal in size and collapses >50% with inspiration. Pericardium There is no pericardial effusion. <Conclusion> The left ventricular systolic function is normal. There is normal LV segmental wall motion. Borderline concentric left ventricular hypertrophy. LVEF is 60-65%. Normal diastolic function A possible patent foramen ovale present Valvular heart disease absent. No significant regurgitant or stenotic lesions There is mild tricuspid regurgitation. Estimated pulmonary artery pressure of 38 mmHg. There is no pericardial effusion. <ELECTRONICALLY SIGNED> By: Kevin Stone MD, FACC 02/21/18 1527 1527 1527 Kevin Stone MD, FACC /INF
--- NOTE | ~2018-02-14 | HC ---
[facility] [place] [address] [place] [address] CONSULTATION Name: EVERTON ROMAN Room #: 358-P [facility] IN ..#: [id number] Admission: 02/14/18 Attend Phys: Melvin Cruz MD Discharge: 02/23/18 Date of : 72 Report #: [id number] THIS REPORT FOR: //name// CC: Melvin FRANZ DATE OF SERVICE: 02/20/2018 HISTORY OF PRESENT ILLNESS: This is a 47-year-old female patient who was evaluated by me for a neurological consult. I tried to see this patient. We will follow this patient will not cooperate. She will not do anything. She will not follow any commands. She opens her eyes, but that is all she does. I talked to the nurses. They said that the patient was asked to go home and that is how she has become. Apparently, a code stroke was called on Tuesday and since then she has been unresponsive. If I can tell from the record, the patient has been hypoglycemic and the blood sugar may have gone as low as 42 in this patient. I reviewed the nephrology note who knows this patient well and looks like this patient has all kind of complications from diabetes. She would not tell me if there is any contraindication for MRI. In the Emergency Room, her blood sugar was 37 as I understand that. REVIEW OF SYSTEMS: Indicate she has end-stage renal disease, hypertension, peripheral neuropathy, gastroparesis, chronic pain with opiate use. She apparently has a history of tubal ligation in the past. This is all 14-point review of system, I can get from the record. PAST MEDICAL HISTORY: Positive for end-stage renal disease. FAMILY HISTORY: Unavailable. SOCIAL HISTORY: Only from the record and apparently does not smoke or drink alcohol. PHYSICAL EXAMINATION: NEUROLOGICAL: Pretty limited. She opens her eye. She did not follow any command for me. She would not let me do the fundus. I do not think there is any meningeal sign. She would not move anything. She does not have any respiratory difficulty. GENERAL: She is moderately obese individual who is not cooperative enough to tell if any problem with the vision or hearing is present. VITAL SIGNS: Blood pressure is 111/65, respirations 14, pulse is 93 and temperature is 98.3. LABORATORY DATA: She is anemic with a hemoglobin of 7.1. LABORATORY DATA: Her imaging study has indicated a CT scan, which does not show [address] [address] CONSULTATION Name: EVERTON ROMAN Room #: 358-P [facility] IN ..#: [id number] Admission: 02/14/18 Attend Phys: Mevlin Cruz MD Discharge: 02/23/18 Date of : 72 Report #: [id number] any acute process and for some reason, she also had an MRI of the lumbar spine, which does not show any definite abnormality. IMPRESSION: This patient may have encephalopathy from hypoglycemia. She has multiple risk factors for CVA that need to be excluded. Component of psychiatric problem has been raised. I think we should exclude other pathology and only then considered that. RECOMMENDATIONS: 1. I will start with an EEG. 2. I will get an MRI of the brain. 3. Rest of the workup will depend upon the outcome of those testing and we will follow the patient along with you. <ELECTRONICALLY SIGNED> By: Kyle Wilkins MD 02/28/18 1446 2017 0321 Kyle Wilkins MD /nt
[~2018-02-14 16:59] MED LIST changes: +PERCOCET PO; +RENAL VITAMIN0.8 MG PO
[2018-02-14 17:00] VITALS: BP 235/125
[2018-02-14 18:08] LABS: HEMATOCRIT 32.7 % (37.0-47.0); HEMOGLOBIN 10.8 gm/dL (12.0-15.0); MCH 30.1 pg (26.0-34.0); MCHC 33.2 g/dL (28.0-37.0); MCV 90.6 fL (80.0-100.0); PLATELET COUNT 195 thou/uL (150-400); RBC 3.61 mil/uL (4.20-5.00); RDW 16.1 % (10.5-14.5); WBC 2.2 thou/uL (4.0-11.0)
[2018-02-14 18:16] LABS: CALCIUM 9.6 mg/dL (8.5-10.1); CREATININE 3.7 mg/dL (0.6-1.0); POTASSIUM 3.1 mmol/L (3.5-5.1)
[2018-02-14 18:22] LABS: ALBUMIN 3.5 g/dL (3.4-5.0); TOTAL BILIRUBIN 0.5 mg/dL (<0.1-1.0); TOTAL PROTEIN 6.8 g/dL (6.4-8.2)
[2018-02-14 18:28] LABS: ABSOLUTE NEUTROPHILS 1.2 thou/uL (1.4-8.2); ANISOCYTOSIS 1+
[2018-02-14 20:08] VITALS: BP 125/69
[2018-02-14 20:38] VITALS: BP 133/84
[2018-02-14 20:50] VITALS: BP 138/86
[2018-02-15 01:55] VITALS: BP 118/71
[2018-02-15 04:50] VITALS: BP 145/90
[2018-02-15 05:35] LABS: HEMATOCRIT 26.7 % (37.0-47.0); MCH 29.7 pg (26.0-34.0); MCV 92.8 fL (80.0-100.0); RBC 2.88 mil/uL (4.20-5.00); RDW 16.1 % (10.5-14.5); WBC 2.8 thou/uL (4.0-11.0)
[2018-02-15 05:36] LABS: HEMOGLOBIN 8.6 gm/dL (12.0-15.0)
[2018-02-15 05:46] LABS: CALCIUM 8.6 mg/dL (8.5-10.1); CREATININE 4.4 mg/dL (0.6-1.0)
[2018-02-15 05:48] LABS: POTASSIUM 2.8 mmol/L (3.5-5.1)
[2018-02-15 07:28] VITALS: BP 141/89
[2018-02-15 16:14] VITALS: BP 155/94
[2018-02-15 19:25] VITALS: BP 118/71
[2018-02-15 23:17] VITALS: BP 112/72
[2018-02-16 04:40] VITALS: BP 122/75
[2018-02-16 07:15] VITALS: BP 131/86
[2018-02-16 11:04] VITALS: BP 112/69
[2018-02-16 16:06] VITALS: BP 108/68
[2018-02-16 19:55] VITALS: BP 80/51
[2018-02-16 21:15] VITALS: BP 83/54
[2018-02-17] VITALS: BP 121/79
[2018-02-17 04:30] VITALS: BP 85/56
[2018-02-17 05:19] LABS: ALBUMIN 2.8 g/dL (3.4-5.0); CALCIUM 8.4 mg/dL (8.5-10.1); CREATININE 4.6 mg/dL (0.6-1.0); PHOSPHORUS 3.7 mg/dL (2.5-4.9)
[2018-02-17 05:37] LABS: POTASSIUM 7.3 mmol/L (3.5-5.1)
[2018-02-17 07:22] VITALS: BP 92/60
[2018-02-17 12:35] VITALS: BP 75/48; BP 75/50
[2018-02-17 19:49] VITALS: BP 96/64
[2018-02-17 23:44] VITALS: BP 82/54
[2018-02-18] VITALS (7 sets, daily range): BP systolic 80–94; BP diastolic 46–63
[2018-02-18 10:08] LABS: ALBUMIN 2.4 g/dL (3.4-5.0); CALCIUM 8.4 mg/dL (8.5-10.1); CREATININE 2.9 mg/dL (0.6-1.0); PHOSPHORUS 4.4 mg/dL (2.5-4.9)
[2018-02-18 10:09] LABS: POTASSIUM 6.3 mmol/L (3.5-5.1)
[2018-02-18] MEDS ORDERED: MS CONTIN15 MG PO (11:26)
[2018-02-18 19:00] LABS: HEMATOCRIT 21.5 % (37.0-47.0); MCH 30.1 pg (26.0-34.0); MCHC 32.5 g/dL (28.0-37.0); MCV 92.4 fL (80.0-100.0); RBC 2.33 mil/uL (4.20-5.00); RDW 16.3 % (10.5-14.5)
[2018-02-18 19:07] LABS: CALCIUM 8.4 mg/dL (8.5-10.1)
[2018-02-18 19:08] LABS: CREATININE 1.5 mg/dL (0.6-1.0); POTASSIUM 4.2 mmol/L (3.5-5.1)
[2018-02-19 00:08] VITALS: BP 81/46
[2018-02-19 03:11] VITALS: BP 81/48
[2018-02-19 06:38] LABS: HEMATOCRIT 22.4 % (37.0-47.0); HEMOGLOBIN 7.1 gm/dL (12.0-15.0); MCHC 31.5 g/dL (28.0-37.0); MCV 92.1 fL (80.0-100.0); RBC 2.44 mil/uL (4.20-5.00); RDW 16.4 % (10.5-14.5); WBC 4.2 thou/uL (4.0-11.0)
[2018-02-19 06:50] LABS: ALBUMIN 2.7 g/dL (3.4-5.0); CALCIUM 8.5 mg/dL (8.5-10.1); CREATININE 2.3 mg/dL (0.6-1.0); PHOSPHORUS 4.6 mg/dL (2.5-4.9); POTASSIUM 4.9 mmol/L (3.5-5.1)
[2018-02-19 07:34] VITALS: BP 77/45; BP 85/49
[2018-02-19 11:29] VITALS: BP 82/47
[2018-02-19 16:02] VITALS: BP 91/51
[2018-02-19 19:40] VITALS: BP 101/61
[2018-02-20 03:55] VITALS: BP 95/54
[2018-02-20 05:51] LABS: ALBUMIN 2.5 g/dL (3.4-5.0); CALCIUM 8.2 mg/dL (8.5-10.1); PHOSPHORUS 4.8 mg/dL (2.5-4.9); POTASSIUM 4.9 mmol/L (3.5-5.1)
[2018-02-20 05:53] LABS: CREATININE 3.4 mg/dL (0.6-1.0)
[2018-02-20 07:21] VITALS: BP 82/48
[2018-02-20 11:38] VITALS: BP 82/46
[2018-02-20 17:59] VITALS: BP 111/65
[2018-02-20 19:40] VITALS: BP 107/66
[2018-02-21 00:06] VITALS: BP 97/50
[2018-02-21 04:00] VITALS: BP 97/55
[2018-02-21 06:07] LABS: ALBUMIN 2.2 g/dL (3.4-5.0); CALCIUM 8.3 mg/dL (8.5-10.1); CREATININE 2.3 mg/dL (0.6-1.0); PHOSPHORUS 3.2 mg/dL (2.5-4.9); POTASSIUM 4.1 mmol/L (3.5-5.1)
[2018-02-21 07:18] VITALS: BP 85/45
[2018-02-21 15:55] VITALS: BP 124/67
[2018-02-21 19:02] VITALS: BP 129/68
[2018-02-22 03:34] VITALS: BP 129/75
[2018-02-22 05:24] LABS: ABSOLUTE NEUTROPHILS 4.3 thou/uL (1.4-8.2); BASOPHILS 0.7 % (0.0-2.0); EOSINOPHILS 1.8 % (0.0-3.0); HEMATOCRIT 24.3 % (37.0-47.0); LYMPHOCYTES 21.1 % (24.0-44.0); MCHC 32.9 g/dL (28.0-37.0); MCV 91.3 fL (80.0-100.0); MONOCYTES 11.9 % (1.0-8.0); POLYS 64.5 % (36.0-66.0); RBC 2.66 mil/uL (4.20-5.00); RDW 15.4 % (10.5-14.5); WBC 6.7 thou/uL (4.0-11.0)
[2018-02-22 05:28] LABS: PLATELET COUNT 200 thou/uL (150-400)
[2018-02-22 05:31] LABS: CALCIUM 8.7 mg/dL (8.5-10.1); POTASSIUM 4.4 mmol/L (3.5-5.1)
[2018-02-22 05:33] LABS: CREATININE 3.8 mg/dL (0.6-1.0)
[2018-02-22 07:30] VITALS: BP 107/62
[2018-02-22 11:39] VITALS: BP 127/69
[2018-02-22 16:46] VITALS: BP 148/94
[2018-02-22 19:37] VITALS: BP 91/59
[2018-02-23 03:14] VITALS: BP 134/77
[2018-02-23 07:33] VITALS: BP 93/57
[2018-02-23 11:26] VITALS: BP 96/58
[2018-02-23] MEDS ORDERED: NEPHROCAPS SOFT1 CAP PO ×2 (15:07)
[2018-02-23] MEDS ORDERED: MIDODRINE HCL 55 M1 PO ×2 (15:07)
[2018-02-23] MEDS ORDERED: PROCRIT20000 UNIT SUBQ ×2 (15:07)
[2018-02-23] MEDS ORDERED: HEPARIN SO1000 UNIT/ IV PUSH ×2 (15:07)
[2018-02-23] MEDS ORDERED: LOPERAMIDE 2 MG2 M1 PO ×2 (15:07)
== END 2018-02-23 16:54 | DRG 70 ==
LOC: ER 16:59 → EROBS 19:19 → 3W 19:19
PROVIDERS: Hospitalist; Internal Medicine Nephrology; Nurse Practitioner Family; Physician Assistant
PROC: 5A1D70Z Performance of Urinary Filtration, Intermittent, Less than 6 Hours Per Day (ICD-10-PCS; principal; 2018-02-15)
PROC: 5A1D70Z Performance of Urinary Filtration, Intermittent, Less than 6 Hours Per Day (ICD-10-PCS; 2018-02-17)
PROC: 5A1D70Z Performance of Urinary Filtration, Intermittent, Less than 6 Hours Per Day (ICD-10-PCS; 2018-02-18)
PROC: 5A1D70Z Performance of Urinary Filtration, Intermittent, Less than 6 Hours Per Day (ICD-10-PCS; 2018-02-20)
PROC: 5A1D70Z Performance of Urinary Filtration, Intermittent, Less than 6 Hours Per Day (ICD-10-PCS; 2018-02-22)
DX: G93.41 Metabolic encephalopathy (principal); E43 Unspecified severe protein-calorie malnutrition; N18.6 End stage renal disease; I12.0 Hypertensive chronic kidney disease with stage 5 chronic kidney disease or end stage renal disease; F05 Delirium due to known physiological condition; E10.649 Type 1 diabetes mellitus with hypoglycemia without coma; K31.84 Gastroparesis; T68.XXXA Hypothermia, initial encounter; E07.81 Sick-euthyroid syndrome; E03.9 Hypothyroidism, unspecified; E10.65 Type 1 diabetes mellitus with hyperglycemia; E87.6 Hypokalemia; I95.9 Hypotension, unspecified; E10.43 Type 1 diabetes mellitus with diabetic autonomic (poly)neuropathy; E10.22 Type 1 diabetes mellitus with diabetic chronic kidney disease; G89.29 Other chronic pain; E87.5 Hyperkalemia; M54.9 Dorsalgia, unspecified; D64.9 Anemia, unspecified; T40.605A Adverse effect of unspecified narcotics, initial encounter; Y92.89 Other specified places as the place of occurrence of the external cause; Z68.23 Body mass index [BMI] 23.0-23.9, adult; Z99.2 Dependence on renal dialysis; Z87.11 Personal history of peptic ulcer disease; Z79.4 Long term (current) use of insulin; Z79.899 Other long term (current) drug therapy; Z88.6 Allergy status to analgesic agent; Z88.1 Allergy status to other antibiotic agents; Z91.041 Radiographic dye allergy status; Z88.8 Allergy status to other drugs, medicaments and biological substances; Z91.048 Other nonmedicinal substance allergy status; Z84.1 Family history of disorders of kidney and ureter; Z83.3 Family history of diabetes mellitus
CPT/HCPCS: 10879; 32100

== ENCOUNTER 2018-02-23 11:57 | Inpatient (IN) | payer OTHER ==
[~2018-02-23] VITALS: Ht 149.9 cm; Wt 51.7 kg
--- NOTE | ~2018-02-23 | PLAN ---
[facility] [place] [address] REHAB UNIT PLAN OF CARE Name: ABELEVERTON Zayda Room #: 509-P [facility] IN .R.#: [id number] Admission: 02/23/18 Attend Phys: Osiel Billingsley MD Discharge: 03/07/18 Date of : 72 Report #: [id number] THIS REPORT FOR: //name// CC: Osiel Billingsley MOLLY FRANZ DATE OF SERVICE: 02/25/2018 SUBJECTIVE: The patient was seen earlier. Temp 36.9, pulse 97, respirations 20, blood pressure 124/75. She was sleepy, in no distress. She has been working in therapies with min assist for bathing and OT. Upper body dressing noted to be supervision, lower body dressing is min assist. In physical therapy, she has been mod assist for transfers, min assist to ambulate 20 feet with a front-wheeled walker. In speech therapy, she has been noted to have moderate cognitive deficits with moderate memory deficits. ASSESSMENT: 1. Encephalopathy, appears multifactorial and primarily metabolic. 2. Insulin-dependent diabetes mellitus. 3. Question of gastroparesis. 4. End-stage renal disease, on hemodialysis. 5. Chronic back pain. 6. Prior hypoglycemic episode with unresponsiveness. 7. Premorbid peripheral neuropathy. 8. Anemia. PLAN: The overall plan of care is based on the preadmission screen, post-admission physician evaluation and information garnered from therapy assessments. 1. Estimated length of stay is going to be at least 10 days to 2 weeks and likely longer. 2. Medical prognosis is reasonably good. 3. Anticipated interventions includes the interdisciplinary acute inpatient rehabilitation program with PT, OT and speech, rehabilitation nursing assisting regarding medication management, skin care prophylaxis, bowel and bladder issues and nursing education. 4. Anticipated functional outcomes would be for the patient to become modified independent with transfers, mobility, ADLs improved cognition and to achieve a point where she can return back to the home setting where she lives with her in a house. 5. Discharge destination is back home with her . 6. Expected therapy by discipline includes PT, OT and speech 1 hour per day [address] [address] REHAB UNIT PLAN OF CARE Name: EVERTON ROMAN Room #: 509-P [facility] IN ..#: [id number] Admission: 02/23/18 Attend Phys: Osiel Billingsley MD Discharge: 03/07/18 Date of : 72 Report #: [id number] each five days a week throughout the duration of the acute inpatient rehabilitation stay. <ELECTRONICALLY SIGNED> By: Osiel Billingsley MD 03/09/18 1323 1427 1435 Osiel Billingsley MD /PMT
--- NOTE | ~2018-02-23 | H ---
[facility] [place] [address] [address] HISTORY AND PHYSICAL Name: LANIWILLIAMEVERTON Room #: 509-P [facility] IN M.R.#: [id number] Admission: 02/23/18 Attend Phys: Osiel Billingsley MD Discharge: Date of : 72 Report #: [id number] THIS REPORT FOR: //name// CC: Osiel FRANZ DATE OF SERVICE: 02/23/2018 HISTORY AND PHYSICAL/POST-ADMISSION PHYSICIAN EVALUATION: HISTORY OF PRESENT ILLNESS: The patient is a 47-year-old -[place] female with history of end-stage renal disease, on hemodialysis, originally admitted to [facility] on 02/14/2018 with insulin-dependent diabetes mellitus, peptic ulcer disease, chronic back pain, peripheral neuropathy, who began feeling sick to her stomach, low blood sugar, nausea, vomiting or chills. A code stroke was noted to be called and she became unresponsive. She was noted to have a low blood sugar. She was diagnosed with an encephalopathy thought in part due to hypoglycemia. MRI of the brain revealed what was thought to be an artifact involving the corpus callosum. Psychiatry saw her as there was a question as to whether she was having a conversion disorder. They were less inclined to think that this was an actual conversion disorder. She seems to be doing better overall and answering questions more normally. Neurology thought that the encephalopathy was also likely due to the psychotropic medication or other metabolite. They recommended repeating the MRI in 1 week. She does have some multifactorial encephalopathy in part due to metabolic causes as well as noted hypoglycemia. She has had a significant functional decline and has now been admitted for acute in-hospital inpatient rehabilitation. PAST MEDICAL HISTORY: Hepatomegaly with steatosis. She has had nonbleeding gastric erosions and a large nonbleeding duodenal ulcer per EGD 01/10/2018. She has a history of diabetic ketoacidosis. She has been noted to have an insulin pump, insulin-dependent diabetes mellitus, gastroparesis, peripheral neuropathy, anemia, chronic pain with opiate usage. ALLERGIES: AMOXICILLIN, ASPIRIN TAPE, LES INHIBITOR, REGLAN. MEDICATIONS: Please see the full medication listing. This is noted to include vitamins, herbals, and supplements. HABITS: No history of tobacco or alcohol abuse. SOCIAL HISTORY: Lives with her in a house, premorbid walker ambulator. Per history, the does not work outside of the home and there with her and drives her to dialysis. Again, I am not able to confirm this. Case management notes indicate she lives in a town home with and sister to [address] [address] HISTORY AND PHYSICAL Name: EVERTON ROMAN Room #: 509-P [facility] IN [facility].#: [id number] Admission: 02/23/18 Attend Phys: Osiel Billingsley MD Discharge: Date of : 72 Report #: [id number]. REVIEW OF SYSTEMS: No current complaints of chest pain, shortness of breath or abdominal discomfort. She has the chronic low back pain. PHYSICAL EXAMINATION: GENERAL: This is a 47-year-old -[place] female in no obvious distress. She has a rather flat affect. VITAL SIGNS: Temperature 98.1, pulse 101, respirations 18, blood pressure 132/74. Follows basic commands without difficulty. There is a definite latency to her responses. EOMs appeared to be full. HEENT: Facies are symmetric. CHEST: Sounded clear to auscultation. CARDIOVASCULAR: Sounded regular rate and rhythm. ABDOMEN: Bowel sounds positive, nontender. GENITOURINARY AND RECTAL: Deferred. VASCULAR: She has central line in place. EXTREMITIES: Functional range of motion of the upper extremity strength is grade 3+ to 4-/5. Tone appeared to be intact. Lower extremities, no focal calf swelling, functional range of motion, strength is a grade 3-3+/5. She does have decreased sensation in bilateral large toes to proprioception. She has been supervision for bed mobility, evaluation continues. Prior to admission, she has been on min assist with sit to stand and min assist short distance walker ambulator. Noted to have [id number] comprehensive deficits. ASSESSMENT: This a 47-year-old -[place] female with the following problem list: 1. Encephalopathy, which appears multifactorial and primarily metabolic. 2. Insulin-dependent diabetes mellitus, on insulin. 3. Question of gastroparesis. 4. End-stage renal disease, on hemodialysis. 5. Chronic back pain. 6. Hypoglycemic episode with unresponsive episode. 7. Premorbid peripheral neuropathy. 8. Anemia. PLAN: The patient is admitted for acute in-hospital inpatient rehabilitation. From a postadmission physician evaluation perspective, there are no relevant changes since the preadmission screening. Please see the above review of prior and current medical and functional conditions and comorbidities. Please see the patient's previous and current functional status. As far as risk of complications, the patient has multiple medical comorbidities as noted above. Initial plan of care involves the interdisciplinary acute inpatient rehabilitation program with goal of maximizing the patient's functional independence, so that she can hopefully return back to her prior living situation. Prognosis is reasonably good with estimated length of stay probably [facility] [address] [place] [address] HISTORY AND PHYSICAL Name: EVERTON ROMAN Room #: 509-P [facility] IN ..#: [id number] Admission: 02/23/18 Attend Phys: Osiel Billingsley MD Discharge: Date of : 72 Report #: [id number] at least 10 days to 2 weeks and potentially longer. Potential barriers would include the patient's multiple medical comorbidities and decreased functional status. The patient meets diagnostic criteria for an acute in-hospital inpatient rehabilitation stay. She meets the medical necessity criteria and we will have the multiple wedding consultant physicians continue to follow. She does have the tolerance for therapies and has appropriate discharge goals back to the home setting. <ELECTRONICALLY SIGNED> By: Osiel Billingsley MD 03/02/18 1144 0849 0942 Osiel Billingsley MD /nt
--- NOTE | ~2018-02-23 | HC ---
[facility] [place] [address] CONSULTATION Name: EVERTON ROMAN Room #: 509-P ADM IN M.R.#: [id number] Admission: 02/23/18 Attend Phys: Jonas Billingsley MD Discharge: Date of : 72 Report #: [id number] THIS REPORT FOR: //name// CC: JONAS FRANZ DATE OF SERVICE: 02/25/2018 HISTORY OF PRESENT ILLNESS: The patient is a 47-year-old female who is currently in rehabilitation. She has multiple medical problems including end-stage renal disease, on hemodialysis. We have actually seen the patient during a recent hospitalization for upper GI bleed, nausea, vomiting and gastroparesis. She was noted to have an esophageal bleed as well as a large duodenal ulcer. She states her nausea and vomiting has improved significantly. She denies any blood in her stools. No bright red blood or melena. The reason for consultation today is diarrhea and anorectal pain. She was just diagnosed with C. diff on 02/23/2018. She is currently on Flagyl 500 mg t.i.d. p.o. Nystatin, zinc oxide and lidocaine ointment was just prescribed starting today, which she states has been somewhat helpful as far as her anal pain. She denies any significant abdominal pain, again noted nausea and vomiting at this time that is improved significantly. She is having 4-5 loose bowel movements to diarrhea each day. Denies any blood in her stools. Currently, denies any chest pain or shortness of breath. PAST MEDICAL HISTORY: End-stage renal disease, on hemodialysis; history of diabetic ketoacidosis; history of gastroparesis; insulin-dependent diabetes; peripheral neuropathy; anemia; chronic pain; duodenal ulcer; gastric erosions; esophageal ulcer on upper endoscopy 01/10/2018; hypertension; she has an insulin pump; AV graft. ALLERGIES: AMOXICILLIN, ASPIRIN, IODINE FROM BETADINE, TAPE, LES INHIBITORS, REGLAN, SOAP FROM BETADINE. REVIEW OF SYSTEMS: As per HPI. SOCIAL HISTORY: She denies any tobacco or alcohol use. FAMILY HISTORY: Negative for colon cancer. CURRENT MEDICATIONS: EPO; nystatin, zinc oxide and lidocaine ointment for anal canal p.r.n.; multivitamins; Protonix; Flagyl; oxycodone; insulin; loperamide p.r.n.; midodrine; bisacodyl; magnesium; sennoside; docusate p.r.n.; Tylenol p.r.n.; [place] [address] CONSULTATION Name: ELIZABETHSTANTONAMANDAWILLIAMEVERTON Zayda Room #: 509-P [facility]..#: [id number] Admission: 02/23/18 Attend Phys: Jonas Billingsley MD Discharge: Date of : 72 Report #: [id number] PHYSICAL EXAMINATION: VITAL SIGNS: Temperature is 97.0, pulse 100, blood pressure 124/82, respiratory rate is 16. GENERAL: She is alert and oriented x 3, in no acute distress. HEENT: Sclerae nonicteric. Oropharynx clear. NECK: Supple, without lymphadenopathy. CARDIOVASCULAR: Regular rate and rhythm. CHEST: Clear to auscultation bilaterally. ABDOMEN: Soft. She is nontender, nondistended, normoactive bowel sounds. EXTREMITIES: No cyanosis, clubbing or edema. LABORATORY DATA: From yesterday sodium 134, potassium 4.2, chloride 97, bicarbonate 27, BUN 30, creatinine 4.0, AST is 249. On 02/14/2018, total bili was 0.5, alk phos 222, ALT was 186. Hemoglobin was 8.0, WBC 8.5, platelet count was 265. Stool was positive for C. diff on 02/23/2018. ASSESSMENT AND PLAN: 1. Anal pain. I suspect is due to fissures, especially with patient with diarrhea recently. I agree with current ointment. If this is not helpful, could switch to Analpram which also has a lidocaine, but also a steroid. The patient was diagnosed with Clostridium difficile 2 days ago. She is on Flagyl. We will continue to monitor closely. If she has no improvement, could consider switching to vancomycin p.o. We will continue to follow. 2. History of gastroparesis, insulin-dependent diabetes. The patient denies any nausea or vomiting at this time. 3. History of esophageal ulcer and duodenal ulcer. The patient is on PPI therapy. Again, denies any abdominal pain or bleeding at this time. Thank you for allowing me to participate in her care. <ELECTRONICALLY SIGNED> By: David Naik MD 02/26/18 1048 1059 2100 David Naik MD /nt
--- NOTE | ~2018-02-23 | EKG ---
[address] [address] ELECTROCARDIOGRAM REPORT Name: EVERTON ROMAN Room #: 509-P ADM IN M.R.#: [id number] Admission: 02/23/18 Attend Phys: Osiel Billingsley MD Discharge: Date of : 72 Report #: [id number] THIS REPORT FOR: //name// [facility] Test Date: 2018-02-26 Test Time: 08:06:39 Pat Name: EVERTON ROMAN Department: Room: 509 Gender: F Transactional Paralegal: JESSI : 1970 Requested By: Nahum Onofre Order Number: [id number] MD: Kevin Stone Measurements Intervals Holt Rate: 106 P: 68 TN: 128 QRS: 23 QRSD: 97 T: 61 QT: 355 QTc: 472 Interpretive Statements Sinus tachycardia Poor R wave progression Compared to ECG 01/30/2018 18:46:38 No significant change was found Electronically Signed On 02-26-2018 10:42:06 EDUCATIONAL DIAGNOSTICIAN by Kevin Stone [email or web address] <ELECTRONICALLY SIGNED> By: Kevin Stone MD, [facility] 02/26/18 1042 [id number] 0806 Kevin Stone MD, [facility] /EPI
[~2018-02-23 11:57] MED LIST changes: +MS CONTIN15 MG PO
[2018-02-23] MEDS ORDERED: MIDODRINE HCL 55 M1 PO ×2 (15:07)
[2018-02-23] MEDS ORDERED: NEPHROCAPS SOFT1 CAP PO ×2 (15:07)
[2018-02-23] MEDS ORDERED: HEPARIN SO1000 UNIT/ IV PUSH ×2 (15:07)
[2018-02-23] MEDS ORDERED: LOPERAMIDE 2 MG2 M1 PO ×2 (15:07)
[2018-02-23] MEDS ORDERED: PROCRIT20000 UNIT SUBQ ×2 (15:07)
[2018-02-23 17:05] VITALS: BP 136/79
[2018-02-23 20:27] VITALS: BP 132/74
[2018-02-24 06:13] LABS: CALCIUM 8.3 mg/dL (8.5-10.1); HEMATOCRIT 24.3 % (37.0-47.0); MCH 30.3 pg (26.0-34.0); MCHC 32.9 g/dL (28.0-37.0); POTASSIUM 4.2 mmol/L (3.5-5.1); RBC 2.64 mil/uL (4.20-5.00); RDW 15.5 % (10.5-14.5); WBC 8.5 thou/uL (4.0-11.0)
[2018-02-24 07:50] VITALS: BP 125/70
[2018-02-24 20:53] VITALS: BP 124/82
[2018-02-25 07:22] VITALS: BP 124/75
[2018-02-25 20:00] VITALS: BP 128/86
[2018-02-26 07:45] VITALS: BP 119/55
[2018-02-26 07:50] VITALS: BP 119/55
[2018-02-26 08:29] LABS: HEMATOCRIT 23.3 % (37.0-47.0); HEMOGLOBIN 7.6 gm/dL (12.0-15.0); MCH 30.3 pg (26.0-34.0); MCHC 32.5 g/dL (28.0-37.0); MCV 93.1 fL (80.0-100.0); RBC 2.5 mil/uL (4.20-5.00); WBC 10.7 thou/uL (4.0-11.0)
[2018-02-26 08:47] LABS: ALBUMIN 2.4 g/dL (3.4-5.0); CALCIUM 8.2 mg/dL (8.5-10.1); POTASSIUM 4.1 mmol/L (3.5-5.1); TOTAL BILIRUBIN 0.8 mg/dL (<0.1-1.0); TOTAL PROTEIN 5.2 g/dL (6.4-8.2)
[2018-02-26 08:48] LABS: CREATININE 2.8 mg/dL (0.6-1.0)
[2018-02-26 19:28] VITALS: BP 140/76
[2018-02-27 06:54] LABS: ALBUMIN 2.6 g/dL (3.4-5.0); CALCIUM 8.7 mg/dL (8.5-10.1); PHOSPHORUS 3.5 mg/dL (2.5-4.9); POTASSIUM 4.3 mmol/L (3.5-5.1)
[2018-02-27 06:55] LABS: CREATININE 4.1 mg/dL (0.6-1.0)
[2018-02-27 07:30] VITALS: BP 137/81
[2018-02-27 18:21] VITALS: BP 96/65
[2018-02-27 19:58] VITALS: BP 140/76
[2018-02-28 19:52] VITALS: BP 93/49
[2018-03-01 19:23] VITALS: BP 128/79
[2018-03-02 04:40] LABS: ALBUMIN 2.5 g/dL (3.4-5.0); CALCIUM 8.6 mg/dL (8.5-10.1); PHOSPHORUS 2.9 mg/dL (2.5-4.9); POTASSIUM 3.5 mmol/L (3.5-5.1)
[2018-03-02 04:41] LABS: CREATININE 5.2 mg/dL (0.6-1.0)
[2018-03-02 20:45] VITALS: BP 130/82
[2018-03-03 19:30] VITALS: BP 116/68
[2018-03-04 07:34] VITALS: BP 138/84
[2018-03-04 07:40] VITALS: BP 138/84
[2018-03-04 20:16] VITALS: BP 111/63
[2018-03-05 07:48] VITALS: BP 95/45
[2018-03-05 20:10] VITALS: BP 140/82
[2018-03-06 07:15] VITALS: BP 103/57
[2018-03-06 08:35] VITALS: BP 140/82
[2018-03-06 20:01] VITALS: BP 104/65
[2018-03-06] MEDS ORDERED: PROBIOTIC1 EAC1 PO ×2 (20:24)
[2018-03-06] MEDS ORDERED: TYLENOL325 MG PO ×2 (20:24)
[2018-03-06] MEDS ORDERED: FIRVANQ50 MG/1 ML PO ×2 (20:24)
[2018-03-06] MEDS ORDERED: PREVALITE PACKET4 GM PO ×2 (20:24)
[2018-03-06] MEDS ORDERED: NOVOLOG100 UNIT/1 SUBQ ×2 (20:29)
[2018-03-06] MEDS ORDERED: PROCHLORPERAZINE5 M2 PO ×2 (20:31)
[2018-03-07 06:40] VITALS: BP 97/52
[2018-03-07] MEDS ORDERED: PREVALITE PACKET4 GM PO ×2 (08:39)
[2018-03-07] MEDS ORDERED: FIRVANQ50 MG/1 ML PO ×2 (08:39)
[2018-03-07] MEDS ORDERED: PROBIOTIC1 EAC1 PO ×2 (08:39)
[2018-03-07] MEDS ORDERED: NOVOLOG100 UNIT/1 SUBQ ×2 (08:39)
[2018-03-07] MEDS ORDERED: PROCHLORPERAZINE5 M2 PO ×2 (08:39)
[2018-03-07 09:53] VITALS: BP 91/56
== END 2018-03-07 15:46 | disposition home health service (06) | DRG 70 ==
PROVIDERS: Internal Medicine; Internal Medicine Nephrology; Nurse Practitioner Family
PROC: 5A1D70Z Performance of Urinary Filtration, Intermittent, Less than 6 Hours Per Day (ICD-10-PCS; principal; 2018-02-24)
PROC: 5A1D70Z Performance of Urinary Filtration, Intermittent, Less than 6 Hours Per Day (ICD-10-PCS; 2018-02-25)
PROC: 5A1D70Z Performance of Urinary Filtration, Intermittent, Less than 6 Hours Per Day (ICD-10-PCS; 2018-02-27)
PROC: 5A1D70Z Performance of Urinary Filtration, Intermittent, Less than 6 Hours Per Day (ICD-10-PCS; 2018-02-28)
PROC: 5A1D70Z Performance of Urinary Filtration, Intermittent, Less than 6 Hours Per Day (ICD-10-PCS; 2018-03-02)
PROC: 5A1D70Z Performance of Urinary Filtration, Intermittent, Less than 6 Hours Per Day (ICD-10-PCS; 2018-03-04)
PROC: 5A1D70Z Performance of Urinary Filtration, Intermittent, Less than 6 Hours Per Day (ICD-10-PCS; 2018-03-06)
DX: G93.41 Metabolic encephalopathy (principal); N18.6 End stage renal disease; R47.01 Aphasia; A04.72 Enterocolitis due to Clostridium difficile, not specified as recurrent; G89.29 Other chronic pain; M54.9 Dorsalgia, unspecified; D64.9 Anemia, unspecified; K31.84 Gastroparesis; I95.9 Hypotension, unspecified; E07.81 Sick-euthyroid syndrome; E87.5 Hyperkalemia; E10.22 Type 1 diabetes mellitus with diabetic chronic kidney disease; F41.9 Anxiety disorder, unspecified; R41.0 Disorientation, unspecified; K62.89 Other specified diseases of anus and rectum; M94.0 Chondrocostal junction syndrome [Tietze]; E10.649 Type 1 diabetes mellitus with hypoglycemia without coma; E10.42 Type 1 diabetes mellitus with diabetic polyneuropathy; E10.43 Type 1 diabetes mellitus with diabetic autonomic (poly)neuropathy; Z99.2 Dependence on renal dialysis; Z88.6 Allergy status to analgesic agent; Z88.8 Allergy status to other drugs, medicaments and biological substances; Z79.891 Long term (current) use of opiate analgesic; Z87.11 Personal history of peptic ulcer disease; Z83.3 Family history of diabetes mellitus
CPT/HCPCS: 10112; 32100

== ENCOUNTER 2018-03-12 07:25 | Inpatient (IN) | payer OTHER ==
[~2018-03-12] VITALS: Ht 144.8 cm; Wt 54.4 kg
--- NOTE | ~2018-03-12 | HC ---
[facility] [place] [address] CONSULTATION Name: ABELEVERTON T Room #: 463-P ADM IN M.R.#: [id number] Admission: 03/12/18 Attend Phys: Brennon George MD Discharge: Date of : 72 Report #: [id number] THIS REPORT FOR: //name// CC: FAM unknown Brennon George DATE OF SERVICE: 03/13/2018 HISTORY OF PRESENT ILLNESS: This is a 47-year-old female previously known to us who was on the acute inpatient rehab duran and was just discharged on 03/06/2018. The patient at that time had an acute metabolic encephalopathy, end-stage renal disease, on hemodialysis, gastroparesis, peripheral neuropathy, C. diff. She initially started on Flagyl and then changed to p.o. vancomycin with Gastroenterology involved. She was on Reglan for gastroparesis. The patient did gradually progressed to the point where she was ambulating 150 feet, 4-wheeled walker, contact guard 4 steps. She was discharged to home and originally was doing well. She had complaints of generalized loss of appetite, pain and was noted by the Emergency Department physician to have some fluctuance in the perirectal region along with a very elevated white blood count. CT revealed a perirectal perianal abscess and she was seen by General Surgery who took her for incision and debridement of the perirectal abscess. We are seeing her now in rehabilitation medicine consultation. PAST MEDICAL HISTORY: Includes the history of end-stage renal disease, on hemodialysis. She has a history of EGD with past history of esophageal ulcer x 2, history of hypertension, insulin-dependent pump for diabetes, peripheral neuropathy, gastroparesis, peptic ulcer disease with esophageal, gastric, and duodenal ulcers, anemia, and chronic pain with opiate usage. MEDICATIONS: Please see the full medication listing. ALLERGIES: SHE HAS MULTIPLE ALLERGIES ARE NOTED. SOCIAL HISTORY: She lives with her , rina. The drives her to dialysis. REVIEW OF SYSTEMS: Did not offer any current complaints of chest pain, shortness of breath or abdominal discomfort. PHYSICAL EXAMINATION: GENERAL: Small statured, thin 47-year-old -Fijian female, in no obvious distress. VITAL SIGNS: Last recorded temperature 99.4, pulse 109, respirations 18, and blood pressure 107/54. She is sleepy, but will arouse. Follows basic 1 step commands. [facility] [address] [place] [address] CONSULTATION Name: EVERTON ROMAN Zayda Room #: 463-P [facility] IN M.R.#: [id number] Admission: 03/12/18 Attend Phys: Brennon George MD Discharge: Date of : 72 Report #: [id number] NEUROLOGIC: ____ moan some and discomfort and was not fully cooperative with the examiner. EXTREMITIES: Functional range of motion of the upper extremities, strength is probably a grade 3+ to 4-/5. She does have 1+ edema of her distal upper extremities. No lower extremities, she tends to lie in more of a position. I attempted to have her move both lower extremities and she was probably at least a grade 3+/5. Not fully cooperative. ASSESSMENT: 1. Perirectal abscess, now status post incision and drainage. 2. End-stage renal disease, on hemodialysis. 3. History of diabetes mellitus with insulin pump. 4. History of gastroparesis. 5. Peptic ulcer disease with esophageal, gastric, and duodenal ulcers. PLAN: Agree with PT, OT and speech orders as entered. At this point, I do not see that the patient would meet criteria for another acute in-hospital inpatient rehabilitation stay as we just discharged her from the rehab duran. Therapies are to continue to work with her as she further medically stable. Hopefully, she can return back directly home, although may need to consider other rehab therapy options depending upon how she does. Thank you for asking us to assist in this patient's care. By: [id number] Osiel Billingsley MD /nt
[~2018-03-12 07:25] MED LIST changes: +FIRVANQ50 MG/1 ML PO; +HEPARIN SO1000 UNIT/ IV PUSH; +LOPERAMIDE 2 MG2 M1 PO; +NEPHROCAPS SOFT1 CAP PO; +PREVALITE PACKET4 GM PO; +PROBIOTIC1 EAC1 PO; +PROCHLORPERAZINE5 M2 PO; +PROCRIT20000 UNIT SUBQ
[2018-03-12 07:31] VITALS: BP 130/86
--- NOTE | 2018-03-12 07:50 | NUR ---
PT. TO EXAM ROOM. DR. FAIR BEDSIDE FOR EXAM.
[2018-03-12 08:05] LABS: HEMOGLOBIN 7.6 gm/dL (12.0-15.0); MCH 30.1 pg (26.0-34.0); MCHC 31.5 g/dL (28.0-37.0); MCV 95.4 fL (80.0-100.0); PLATELET COUNT 494 thou/uL (150-400); RBC 2.52 mil/uL (4.20-5.00); WBC 23.4 thou/uL (4.0-11.0)
[2018-03-12 08:18] LABS: ANION GAP 14 mmol/L (7-16); BUN 29 mg/dL (7-18); CHLORIDE 95 mmol/L (98-107); CO2 27 mmol/L (21-32); CREATININE 5.1 mg/dL (0.6-1.0); GLUCOSE 159 mg/dL (74-106); SODIUM 136 mmol/L (136-145)
[2018-03-12 08:18] LABS: BE(vivo) -0.9 mmol/L (-2 to +3); HCO3 22.6 mmol/L (22.0-26.0); PCO2 VENOUS 32.4 mmHg (41.0-51.0); PO2 VENOUS 32.6 mmHg (35.0-45.0)
[2018-03-12 08:38] LABS: ABSOLUTE NEUTROPHILS 20.8 thou/uL (1.4-8.2); PLATELET ESTIMATE INCREASED; SGOT 55 U/L (15-37); SGPT 32 U/L (30-65); TOTAL BILIRUBIN 0.6 mg/dL (<0.1-1.0); TOTAL PROTEIN 6.3 g/dL (6.4-8.2); TROPONIN-I <0.06 ng/mL (<0.06)
--- NOTE | 2018-03-12 09:54 | NUR ---
US HERE TO OBTAIN EXAM
[2018-03-12] MEDS ORDERED: TYLENOL325 MG PO (10:29)
[2018-03-12] MEDS ORDERED: FIRVANQ50 MG/1 ML PO (10:31)
[2018-03-12] MEDS ORDERED: PROBIOTIC1 EAC1 PO (10:31)
[2018-03-12] MEDS ORDERED: PROTONIX40 M1 PO (10:32)
[2018-03-12] MEDS ORDERED: COMPAZINE10 MG PO (10:32)
[2018-03-12] MEDS ORDERED: NOVOLOG100 UNIT/1 SUBQ (10:32)
[2018-03-12] MEDS ORDERED: NEPHROCAPS SOFT1 CAP PO (10:33)
[2018-03-12] MEDS ORDERED: FOLIC ACID1 MG PO (10:33)
[2018-03-12 12:18] VITALS: BP 104/54
[2018-03-12 12:31] VITALS: BP 104/54
--- NOTE | 2018-03-12 12:45 | NUR ---
pt. to or with buffing line set up worker at this time
[2018-03-12 16:00] VITALS: BP 108/56
--- NOTE | 2018-03-12 19:36 | NUR ---
PT ARRIVED FROM OR THIS AFTERNOON. PT HAS BEEN SLEEPING SINCE HOWEVER SHE IS EASILY AROUSABLE. PT VS STABLE.
[2018-03-12 19:40] VITALS: BP 96/53
--- NOTE | 2018-03-12 22:18 | EKG ---
[address] [address] ELECTROCARDIOGRAM REPORT Name: EVERTON ROMAN Room #: 463-P ADM IN M.R.#: [id number] Admission: 03/12/18 Attend Phys: Brennon George MD Discharge: Date of : 72 Report #: [id number] THIS REPORT FOR: //name// [facility] Test Date: 2018-03-12 Test Time: 07:57:09 Pat Name: EVERTON JOHNSONSTANTONJANIS Department: Room: [facility] Gender: F Belly Dancer: : 1970 Requested By: Christine Holliday Order Number: [id number] MD: Hernán Jimenez Measurements Intervals Burt Rate: 120 P: SC: QRS: 64 QRSD: 95 T: 70 QT: 367 QTc: 519 Interpretive Statements Sinus tachycardia Low voltage, precordial leads Nonspecific T abnormalities, lateral leads Compared to ECG 02/26/2018 08:06:39 Electronically Signed On 03-12-2018 22:17:45 FLUX CORE WELDER by Hernán Jimenez [email or web address] <ELECTRONICALLY SIGNED> By: Hernán Jimenez MD 03/12/18 5067 0757 075 Hernán Jimenez MD /EPI
[2018-03-13 04:39] VITALS: BP 107/53
--- NOTE | 2018-03-13 08:03 | NUR ---
Pt resting in bed. Has been drowsy for the most of the day. Denies pain. No identified needs at the moment. Will continue to monitor.
[2018-03-13 08:31] VITALS: BP 107/54
--- NOTE | 2018-03-13 09:50 | NUR ---
cm tried to visit with pt x 2, unable to rt pt stated " sick get my nurse"/kevin. pt cont on isolation for c-diff. pt dc from acute rehab last week home . chcs and cont outpt [facility]. per chart review pt has home dme equip and support. will cont following as needed for dc needs. pt would not open eyes during visit. cm notified bedside nurse of pt statement " sick get my nurse"/kevin.
--- NOTE | 2018-03-13 11:21 | NUR ---
Nutrition: assess d/t consult for poor intake. Admitted d/t abdominal pain. Hx of ESRD (on dialysis 3 days/week), DM, and HTN. Incision/drainage of perirectal abscess was done on 03/12. Pt on clear liquid diet. Pt sleeping during 2 attempted visits. Wt hx shows relatively stable wt over past 3 years. During previous admission, pt refused oral supplements. Will follow-up on 03/15/18 to assess diet advancement and intake. Otherwise, consider low risk.
[2018-03-13 17:41] VITALS: BP 98/57
--- NOTE | 2018-03-13 18:35 | NUR ---
PT ASSESSED AT START OF SHIFT. RECTAL DSNG W/ SCANT PINK DRAINAGE. PT DROWSY MOST OF SHIFT. NOT WANTING TO EAT BUT DRINKING OK. DIALYSIS THIS AFTERNOON. BP DROPPED ON DX FOR IV MORPHINE FOR C/O SEVERE PAIN. CALLED AND WAS UPDATED ON PT. HE STATED HE WOULD COME AFTER SHE WAS OFF DIALYSIS.
[2018-03-13 20:53] VITALS: BP 94/57
[2018-03-14 06:20] VITALS: BP 98/63
[2018-03-14 08:20] VITALS: BP 108/66
[2018-03-14 09:43] LABS: HEMOGLOBIN 6.7 gm/dL (12.0-15.0)
[2018-03-14 09:45] LABS: MCH 30.7 pg (26.0-34.0); MCHC 32.1 g/dL (28.0-37.0); MCV 95.8 fL (80.0-100.0); RBC 2.19 mil/uL (4.20-5.00); WBC 19.3 thou/uL (4.0-11.0)
[2018-03-14 09:50] LABS: PLATELET COUNT 416 thou/uL (150-400)
[2018-03-14 09:55] LABS: ALBUMIN 1.5 g/dL (3.4-5.0); CALCIUM 8.1 mg/dL (8.5-10.1); CREATININE 3.1 mg/dL (0.6-1.0); MAGNESIUM 1.8 mg/dL (1.8-2.4); POTASSIUM 4.3 mmol/L (3.5-5.1); TOTAL BILIRUBIN 0.7 mg/dL (<0.1-1.0); TOTAL PROTEIN 4.7 g/dL (6.4-8.2)
[2018-03-14 10:20] LABS: ANISOCYTOSIS 1+
[2018-03-14 13:55] VITALS: BP 122/77
--- NOTE | 2018-03-14 16:37 | NUR ---
ASSUMED CARE AT 0700. ASLEEP, AROUSABLE. AXOX4. C/O FATIGUE. S/P ID OF PERIRECTAL FISTULA. BM TODAY. LIGHT BROWN, YELLOW. NO BLEEDING NOTED. STICHES IN ANUS INTACT. SEEN BY AT BEDSIDE. DIALYSIS TMRW AND WILL GET 1U PRBC IN DIALYSIS TMRW. ORDERED NOTED AND LAB IS IN THE PREPARING BLOOD FOR TMRW. NEW ORDER FOR FLUID RESTRICTON GIVEN 1500CC/DAY. NEW DIET ORDERED PER . PT WAS SEEN BY , DIET CONSISTENCY CHANGED TO PUREE. PAIN MANAGED WITH MORPHINE. SEPSIS SCREEN CAME BACK POSITIVE. REPORTED . NNO AT THIS TIME. WILL DOCUMENT IN REGARDING TO SEPSIS SCREEN. ON IV ATB CIPRO AND FLAGYL. PER LAB, PT HAS POOR PIV ACCESS FOR LABS. REPORTED TO . HE WILL REVEIW. WILL CONT TO MONITOR FOR ANY CHANGES OR PROGRESS.
[2018-03-14 20:00] VITALS: BP 134/73
[2018-03-15 03:33] VITALS: BP 100/60
--- NOTE | 2018-03-15 04:19 | NUR ---
Pt. rested quietly at intervals during the night when checked on during frequent rounds. She c/o rectal pain and pain meds given (see emar) with some relief noted. Rectal dressing intact. Bed alarm is on.
[2018-03-15 07:36] VITALS: BP 106/65
--- NOTE | 2018-03-15 10:29 | NUR ---
Nutrition follow-up: Pt did not respond during attempted visit. Diet order now advanced to Renal. Per nursing, pt has had poor intake, only eating a few bites of food. Will trial Nepro TID. Follow-up 03/17/18 to assess intake and continued need for supplement.
--- NOTE | 2018-03-15 11:19 | HC ---
[facility] [place] [address] CONSULTATION Name: EVERTON ROMAN Room #: 463-P ADM IN M.R.#: [id number] Admission: 03/12/18 Attend Phys: Brennon George MD Discharge: Date of : 72 Report #: [id number] THIS REPORT FOR: //name// CC: FAM unknown Brennon George DATE OF SERVICE: 03/13/2018 ATTENDING PHYSICIAN: Brennon George MD REASON FOR CONSULTATION: End-stage renal disease. HISTORY OF PRESENT ILLNESS: The patient is extremely well known to our service with diabetes and triopathy, longstanding chronic hemodialysis. The patient with severe debility and chronic issues related to very poor glucose control and very severe enteropathy and gastroparesis. She was recently hospitalized with C. diff and GI bleeding secondary to multiple ulcers. The ulcers were treated and were doing better. The C. diff worsened and she developed a rectal fissure, which was very painful, treated locally and now she is readmitted with the fissure ripening into a perirectal abscess which required surgical treatment. PAST MEDICAL HISTORY: Longstanding diabetes mellitus, end-stage renal disease, retinopathy, peripheral neuropathy, enteropathy with gastroparesis, esophageal and duodenal ulcers, anemia, chronic pain and opiate dependence. FAMILY HISTORY: Strongly positive for diabetes and end-stage renal disease. SOCIAL HISTORY: Lives at home with her . HOME MEDICATIONS: As listed on her chart include midodrine 10 mg t.i.d., Procrit, Imodium, Nephrocaps 1 daily, vancomycin 250 mg q.i.d., cholestyramine, Protonix, also with dialysis 3 times weekly. REVIEW OF SYSTEMS: GENERAL: Very difficult to take. At present, the patient is quite sedated with narcotics and not giving me much of a history except that she hurts all over. EYES: Her vision is fair. ENT: Hearing okay, swallows okay. No mouth ulcers are noted. ENDOCRINE: Positive for diabetes. RESPIRATORY: Not short-winded. CARDIAC: No chest pain. GASTROINTESTINAL: Diarrhea is much better, poor appetite. GENITOURINARY: Denies dysuria. NEUROLOGIC: Numbness in the legs. PHYSICAL EXAMINATION: [facility] [address] [place] [address] CONSULTATION Name: EVERTON ROMAN Room #: 463-P [facility] IN [facility].#: [id number] Admission: 03/12/18 Attend Phys: Brnenon George MD Discharge: Date of : 72 Report #: [id number] VITAL SIGNS: She is a chronically ill-appearing patient, does not appear to be in any acute distress. SKIN: Unremarkable. SKELETAL: Well developed, well nourished, nonobese. HEENT: Extraocular movements appear to be full without scleral icterus. Hearing intact. Mucous membranes are dry. NECK: Veins are flat. CHEST: Clear. HEART: Regular. ABDOMEN: Soft. EXTREMITIES: Left arm fistula intact. No peripheral edema, numbness in the legs. LABORATORY DATA: Hemoglobin 7.6, white count 23.4, 12% bands. Sodium 136, potassium 4.0, chloride 95, bicarbonate 27, creatinine 5.1, BUN 29. ASSESSMENT: 1. End-stage renal disease, due for dialysis today, orders written. 2. Perirectal abscess drained surgically, treated by the surgery service. 3. Diabetes mellitus with triopathy. 4. Recent history of gastric and esophageal ulcers. 5. Gastroparesis on erythromycin. 6. Clostridium difficile colitis appears to be better. 7. Chronic pain syndrome with chronic opioid dependence. 8. Anemia related to her chronic kidney disease. <ELECTRONICALLY SIGNED> By: Tyrese Escobedo MD 03/15/18 1119 1053 0733 Tyrese Escobedo MD /nt
--- NOTE | 2018-03-15 15:06 | NUR ---
WOUND CONSULT: PT. WAS SEEN TODAY BY DR. HOPKINS AND MYSELF. PT. HAS SURGERY BY DR. PRESCOTT ON 03/12/18 IN RELATION TO A JESSICA-RECTAL ABCESS. PT. REPORTS THAT THIS AREA IS EXTREMLY TENDER TO TOUCH AT THIS TIME. THERE IS STILL A BLUE VESSEL LOOP THAT IS TO BE KEEP IN PLACE AT THIS TIME. RECOMMENDATIONS: SILVADENE/MORPHINE CREAM BID TO AID IN COMFORT AND HEALING PT. AND STAFF NURSE WERE INSTRUCTED ON PLAN OF CARE.
[2018-03-15 17:07] VITALS: BP 120/69; BP 97/54
--- NOTE | 2018-03-15 19:26 | NUR ---
TOWARDS POC ASSUME CARE AT 0700. PT IS A/O X4 BUT SEEMS DROWSY. C/O PAIN MANAGED BY MEDS. PT HAD DIALYSIS THIS 1300H AND RECEIVED 1 PRBC ADMISTERED BY DIALYSIS NURSE. PT SEEMS MORE ALERT IN THE MIDDLE OF DIALYSIS. PT REQUESTED IF SHE CAN HAVE A REGULAR DIET INSTEAD OF PUREED DIET. NURSE TRIED TO CONTACT THE SPEECH THERAPIST BUT HAVEN'T GET HOLD. WILL CONTINUE TO MONITOR.
[2018-03-15 19:54] VITALS: BP 88/47
--- NOTE | 2018-03-16 04:09 | NUR ---
Pt. rested quietly at intervals during the night when checked on during frequent rounds. She does c/o rectal pain and has been given pain meds (see emar) with some relief noted. She has been repostioned in the bed frequently. Sutures intact to rectal area. Bed alarm is on.
[2018-03-16 04:44] VITALS: BP 84/51
[2018-03-16 08:10] VITALS: BP 70/36
[2018-03-16 16:03] VITALS: BP 92/55
[2018-03-16 19:33] VITALS: BP 93/59
--- NOTE | 2018-03-16 19:37 | NUR ---
PATIENT ALERT AND ORIENTED X 4. MAIN COMPLAINT RECTAL PAIN. MEDICATED WITH MORPHINE CREAM TO RECTAL AREA AND HYDROCODONE AND HELPFUL. BP RUNNING LOW SO NO MORPHINE GIVEN. 250ML BOLUS OF NS GIVEN THIS AFTERNOON AND STARTED ON MIDODRINE. BP UP TO 90/50 THIS AFTERNOON. PATIENT SLEPT ALL AFTERNOON. TURNED FREQUENTLY. POOR APPETITE NOTED. ST RE-EVALUATED PATIENT AND STATED SWALLOWING OK BUT HOLDS FOOD IN HER MOUTH CHEWING FOR A LONG TIME. DIET CHANGED TO MECHANICAL SOFT AND PATIENT REFUSED TO EAT THAT. SMALL AMOUNT OF LOSE STOOL OOZING AROUND RECTUM. PERICARE GIVEN. PATIENT IS VERY WEAK AND UNABLE TO TURN SELF. FALL PRECAUTIONS IN PLACE.
[2018-03-17] VITALS (8 sets, daily range): BP systolic 65–128; BP diastolic 36–55
[2018-03-17 05:43] LABS: HEMATOCRIT 26.6 % (37.0-47.0); HEMOGLOBIN 8.1 gm/dL (12.0-15.0); MCH 29.3 pg (26.0-34.0); MCHC 30.5 g/dL (28.0-37.0); MCV 95.9 fL (80.0-100.0); RBC 2.77 mil/uL (4.20-5.00); RDW 21.1 % (10.5-14.5)
[2018-03-17 06:07] LABS: ALBUMIN 1.3 g/dL (3.4-5.0); CALCIUM 8.6 mg/dL (8.5-10.1); CREATININE 3.2 mg/dL (0.6-1.0); PHOSPHORUS 3.5 mg/dL (2.5-4.9)
--- NOTE | 2018-03-17 08:12 | NUR ---
PROGRESS PT LETHARGIC, REPORTED PAIN A 10 REQUESTED MEDICATION MORPHINE GIVEN WITH SLIGHT EFFECT AND PT REQUESTED HYDROCODONE PT SLEEPING AFTER. BP STILL TRENDING LOW. CONTINUE TO MONITOR.
--- NOTE | 2018-03-17 08:53 | HC ---
[facility] [place] [address] CONSULTATION Name: LANIWILLIAMEVERTON Room #: 463-P ADM IN M.R.#: [id number] Admission: 03/12/18 Attend Phys: Brennon George MD Discharge: Date of : 72 Report #: [id number] THIS REPORT FOR: //name// CC: FAM unknown Brennon George DATE OF SERVICE: 03/15/2018 PERSONAL PHYSICIAN: Brennon George MD. CHIEF COMPLAINT: Perirectal wound. HISTORY OF PRESENT ILLNESS: This is a 47-year-old black female with a history of end-stage renal disease, on hemodialysis, who recently was hospitalized at [facility] for rehabilitation and strengthening. The patient was discharged approximately 10 days ago and over that time, the patient started having progressive pain in her perirectal/perianal region and loose stools. The patient had a history of C. difficile colitis in her last hospital stay. The patient came back to the Emergency Department for persistent increasing pain in the perineal region. CAT scan revealed a perirectal abscess. The patient was taken to the operating room under the care of Dr. Pulliam, who drained the abscess and put in a blue vessel loop to keep the wound draining. We have been asked to see the patient for continued wound care. The patient's main complaint is significant pain in the region of the rectum. The patient denies actual fevers at this time. The patient states she has never had any other wound that she could not heal on her own. PAST MEDICAL HISTORY: Diabetes mellitus; end-stage renal disease, on hemodialysis; gastroparesis; anemia. CURRENT MEDICATIONS: Multiple. I reviewed the patient's medication list. DRUG ALLERGIES: LES INHIBITORS, ASPIRIN, BETADINE. SOCIAL HISTORY: The patient denies alcohol or tobacco use. FAMILY HISTORY: Not pertinent to current medical condition. REVIEW OF SYSTEMS: CONSTITUTIONAL: The patient denies fevers or chills at this time. NEUROLOGIC: The patient complains of overall generalized weakness, but no isolated weakness in arms or legs. EYES: No complaints. ENT: No complaints. CARDIAC: The patient denies chest pain, palpitations, peripheral edema. RESPIRATORY: The patient denies shortness breath, cough or wheezes. [address] [address] CONSULTATION Name: EVERTON ROMAN Room #: 463-P [facility] IN [facility].#: [id number] Admission: 03/12/18 Attend Phys: Brennon George MD Discharge: Date of : 72 Report #: [id number] GASTROINTESTINAL: The patient complains of pain in the perirectal region with associated nausea and decreased appetite. The patient is still having loose stools. GENITOURINARY: The patient denies urgency or frequency. MUSCULOSKELETAL: No complaints. SKIN: There is an open wound in the perirectal region with a vessel loop in place to keep it open. PHYSICAL EXAMINATION: VITAL SIGNS: Temperature 36.2, pulse 111, respirations 16, BP 88/47. GENERAL: This is an alert and oriented x 3 black female who is in moderate distress secondary to pain. HEENT: Normocephalic, atraumatic. Mucous membranes are somewhat dry. Pupils are round. LUNGS: Clear. HEART: Tachycardic. ABDOMEN: Soft, nontender, without rebound or guarding. EXTREMITIES: The patient moves all extremities without difficulty, has trace edema in the lower extremities. Bilateral heels are intact. NEUROLOGIC: Cranial nerves 2-12 are grossly intact. Motor and sensory grossly intact. RECTAL: Evaluation of perirectal region reveals a wound that is open and draining yellowish brown liquid. Blue vessel loop was then placed to keep it open. There is minimal fluctuance. There is some mild induration. It is exquisitely tender to palpation, but there is no erythema or warmth. LABORATORY VALUES: White count 19.3, hemoglobin 6.7. Albumin 1.5. IMPRESSION: 1. Perirectal wound, now status post incision and drainage. 2. Diabetes mellitus. 3. End-stage renal disease, on hemodialysis. 4. Protein-calorie malnutrition -- severe. PLAN: At this time, we will add morphine and Silvadene cream to the rectal area twice daily and p.r.n. for pain relief and curb setter helper in the healing. I will review the case with Dr. Pulliam to find out if he is planning on any further surgeries. We will make sure we maximize the patient's oral protein supplementation for her severe protein calorie malnutrition to aid in the healing. We will continue all other current medications at this time. I appreciate the ability to consult. <ELECTRONICALLY SIGNED> By: Macario Nair MD 03/17/18 0853 [id number] 0813 Macario Nair MD /celine
--- NOTE | 2018-03-17 10:44 | NUR ---
Nutrition: assess d/t follow-up. Pt unreponsive during attempted visit. Per nursing, pt still having poor PO intake. Has not been drinking Nepro, will d/c. Weight is stable over past 3 years. Pt has hx of diet non-compliance. Consider low risk.
--- NOTE | 2018-03-17 11:00 | NUR ---
WOUND FOLLOW UP: PT. WAS SEEN TODAY BY DR. HOPKINS AND MYSELF. PT. ABCESS IS STABLE AT THIS TIME. PT. STILL CRIES OUT IN PAIN WITH ANY FOR OF CARES ARE COMPLETED. TRIED TO COMMUNICATE WITH PT. REGARDING PAIN LEVEL AND ALL PT. WOULD DO IS GROAN. SHE WOULD NOT VERBALLY COMMUNICATE AT ALL THIS VISIT. RECOMMENDATIONS: CONTINUE WITH CURRENT PLAN OF CARE. PT. AND STAFF NURSE WERE INSTRUCTED ON WOUND CARE.
--- NOTE | 2018-03-17 13:13 | NUR ---
OT DISCHARGED, PLEASE RE-ORDER OT PATIENT IS ABLE TO PARTICIPATE. TODAY SHE APPEARED OBTUNDED, SHE WAS UNABLE TO NOD HER HEAD TO YES/NO QUESTIONS OR PARTICIPATE IN OT EVALUATION. RN AWARE
--- NOTE | 2018-03-17 13:29 | NUR ---
discussed during los, possible [facility] would be needed for long time iv abt needed when medically stable, possible over the weekend. cm left message with edwin and pt nonverbal and lethargic per bedside nurse. referral [facility] liaison will look to see if able to meet her needs. will cont following as needed for dc needs.
--- NOTE | 2018-03-17 14:23 | NUR ---
ASSUMED CARE AT 0700. AROUSABLE, BUT VERY DROWSY. OPENS EYES WITH VERBAL STIMULI AND ABLE TO FOLLOW SIMPLE COMMANDS, BUT TAKES TIME TO RESPOND. SEEN BY AT BEDSIDE. NEW ORDER FOR LONG ACTING INSULIN AND 250CC BOLUS GIVEN. ALSO SEEN BY AT BEDSIDE. ANOTHER BOLUS OF 250CC GIVEN PER HYPOTENSION, IMPROVING SLOWLY. DIALYSIS WILL BE DONE TODAY. RECEIVED A CALL FROM NURSE THAT IT WILL START AFTER 1630.
--- NOTE | 2018-03-17 16:40 | NUR ---
BP 94/50 R 9 [id number]% TEMP 97.6F P 98. APPLIED 2L O2. CALLED . NNO AT THIS TIME. CONT MONITOR. OK TO GIVE MIDODRINE NOW. PT AWAKE, STILL LITTLE BIT DRWOSY. WILL CONT TO MONITOR
[2018-03-18 04:45] VITALS: BP 117/67
[2018-03-18 08:00] VITALS: BP 119/69
[2018-03-18 15:00] VITALS: BP 110/68
--- NOTE | 2018-03-18 16:38 | NUR ---
PT DROWSY WITH DIFFICULTY KEEPING EYES OPEN WHEN CONVERSING. TOOK MEDS CRUSHED WITH APPLE SAUCE.ASSITANCE WITH MEALS. REQUIRES ENCOURAGEMENT WITH MEALS 2 BITES OF MORNING MEAL, DRANK 1/2 GLASS OF MILK. 2 BITES OF NOON MEAL, ALL OF 1 JELLO, 1 APPLE JUICE. REPOSITIONED TOLERATED. BM TODAY. WOUND CARE GIVEN. FAMILY VISIT AND SPOKE ON THE PHONE WITH DR PRIETO. PLANS TO OR TO [facility] POSSIBLE TUESDAY. CONTACT GRACIELA [phone] OFFICE OR [phone] MAURICIO. WHEN PT IS READY TO TRANSFER TO [facility].
[2018-03-18 19:42] VITALS: BP 156/64
[2018-03-19 05:24] VITALS: BP 146/80
--- NOTE | 2018-03-19 05:40 | NUR ---
Pt. has been drowsey most of the shift. I crushed her meds last night, but then she wanted to spit them out due to the taste. She c/o chronic rectal pain. Medicated cream and repostioning helpful. Pt. is more alert this am and swallowed her meds whole without difficulty. Bed alarm is on.
[2018-03-19 07:48] VITALS: BP 126/67
[2018-03-19 12:01] VITALS: BP 91/40
--- NOTE | 2018-03-19 13:01 | NUR ---
Assumed pt care at 0700. pt is a/ox4 but very lethargic. patient is easily arousable. no concerns or issues at this time. will continue to [facility]. recieved phone call from [facility] in regards to tranfer. after speaking with Dr Cruz, it was decieded that transfer would most likely be tomorrow not today
[2018-03-19 16:09] VITALS: BP 121/66
[2018-03-19 19:51] VITALS: BP 105/60
[2018-03-20 03:49] VITALS: BP 123/65
[2018-03-20 05:38] LABS: ABSOLUTE NEUTROPHILS 13.4 thou/uL (1.4-8.2); BASOPHILS 0.5 % (0.0-2.0); EOSINOPHILS 0.3 % (0.0-3.0); HEMATOCRIT 27.8 % (37.0-47.0); HEMOGLOBIN 8.8 gm/dL (12.0-15.0); LYMPHOCYTES 9.6 % (24.0-44.0); MCH 29.6 pg (26.0-34.0); MCHC 31.5 g/dL (28.0-37.0); MCV 93.7 fL (80.0-100.0); MONOCYTES 5.5 % (1.0-8.0); PLATELET COUNT 443 thou/uL (150-400); POLYS 84.1 % (36.0-66.0); RBC 2.96 mil/uL (4.20-5.00); WBC 15.9 thou/uL (4.0-11.0)
[2018-03-20 05:44] LABS: CALCIUM 7.9 mg/dL (8.5-10.1); CREATININE 3.3 mg/dL (0.6-1.0); POTASSIUM 4.2 mmol/L (3.5-5.1)
--- NOTE | 2018-03-20 06:00 | NUR ---
Pt. rested quietly at intervals during the night when checked on during frequent rounds. She c/o rectal pain and was given pain meds (see emar) with some relief noted. Turned and repositioned. Alert and oriented. Spouse at the bedside to visit last pm.
[2018-03-20 09:01] VITALS: BP 102/63
[2018-03-20] MEDS ORDERED: PROCRIT20000 UNIT IV PUSH (15:36)
[2018-03-20] MEDS ORDERED: ACIDOPHILUS1 EAC4 PO (15:36)
[2018-03-20] MEDS ORDERED: LANTUS100 UNIT/M SUBQ (15:36)
[2018-03-20] MEDS ORDERED: MIDODRINE HCL 55 M1 PO (15:36)
[2018-03-20] MEDS ORDERED: ONDANSETRON HCL4 M2 PO (15:36)
[2018-03-20] MEDS ORDERED: HYDROCODON-ACE1 EAC7 PO (15:36)
--- NOTE | 2018-03-20 16:28 | NUR ---
PT IS TO DISCHARGE TO [facility] TODAY. PT IS TO BE TRANSPORTED VIA [facility]. TRANSPORT FORM COMPLETED. REPORT TO BE CALLED TO . TRANSPORT ARRANGED FOR 1899. PT AND SPOUSE AWARE AND AGREEABLE. CHART COPY MADE AND ORDERS FAXED. NO OTHER CM INTERVETION INDICATED AT THIS TIME. CASE CLOSED.
--- NOTE | 2018-03-20 16:35 | NUR ---
WOUND FOLLOW UP: PT. WAS SEEN TODAY BY DR. PARNELL AND MYSELF. PT. WOUND IS STABLE AT THIS TIME. RECOMMENDATIONS: CONTINUE WITH CURRENT PLAN OF CARE. PT. AND STAFF NURSE WERE INSTRUCTED ON WOUND CARE.
--- NOTE | 2018-03-20 16:43 | NUR ---
Assumed pt care at 0700. pt is a/ox4 with no issues or concerns at this time. will continue to montior patient until d/c this evening at 0700pm via [facility]
[2018-03-20 17:26] VITALS: BP 93/64
--- NOTE | 2018-03-20 20:13 | NUR ---
REPORT GIVEN TO GAYE HOLLOWAY.
== END 2018-03-20 19:20 | DRG 853 ==
LOC: ER 07:25 → EROBS 10:34 → 4W 10:34 → TBA 12:44 → 4W 12:45
PROVIDERS: Hospitalist; Internal Medicine Nephrology; Student in an Organized Health Care Education/Training Program; ADMIT Internal Medicine
PROC: 0D9Q0ZZ Drainage of Anus, Open Approach (ICD-10-PCS; 2018-03-12)
PROC: 5A1D70Z Performance of Urinary Filtration, Intermittent, Less than 6 Hours Per Day (ICD-10-PCS; 2018-03-13)
PROC: 30233N1 Transfusion of Nonautologous Red Blood Cells into Peripheral Vein, Percutaneous Approach (ICD-10-PCS; principal; 2018-03-15)
PROC: 5A1D70Z Performance of Urinary Filtration, Intermittent, Less than 6 Hours Per Day (ICD-10-PCS; 2018-03-15)
PROC: 5A1D70Z Performance of Urinary Filtration, Intermittent, Less than 6 Hours Per Day (ICD-10-PCS; 2018-03-17)
PROC: 5A1D70Z Performance of Urinary Filtration, Intermittent, Less than 6 Hours Per Day (ICD-10-PCS; 2018-03-20)
DX: A41.9 Sepsis, unspecified organism (principal); N18.6 End stage renal disease; E43 Unspecified severe protein-calorie malnutrition; G92 Toxic encephalopathy; K61.2 Anorectal abscess; K22.10 Ulcer of esophagus without bleeding; I12.0 Hypertensive chronic kidney disease with stage 5 chronic kidney disease or end stage renal disease; K31.84 Gastroparesis; E10.43 Type 1 diabetes mellitus with diabetic autonomic (poly)neuropathy; G89.4 Chronic pain syndrome; E10.22 Type 1 diabetes mellitus with diabetic chronic kidney disease; K25.9 Gastric ulcer, unspecified as acute or chronic, without hemorrhage or perforation; K26.9 Duodenal ulcer, unspecified as acute or chronic, without hemorrhage or perforation; E10.42 Type 1 diabetes mellitus with diabetic polyneuropathy; E10.319 Type 1 diabetes mellitus with unspecified diabetic retinopathy without macular edema; F41.9 Anxiety disorder, unspecified; D63.1 Anemia in chronic kidney disease; Z91.14 Patient's other noncompliance with medication regimen; Z99.81 Dependence on supplemental oxygen; Z88.6 Allergy status to analgesic agent; Z88.1 Allergy status to other antibiotic agents; Z88.8 Allergy status to other drugs, medicaments and biological substances; Z91.048 Other nonmedicinal substance allergy status; Z79.4 Long term (current) use of insulin; Z79.899 Other long term (current) drug therapy; Z79.01 Long term (current) use of anticoagulants; Z79.891 Long term (current) use of opiate analgesic; Z99.2 Dependence on renal dialysis; Z83.3 Family history of diabetes mellitus; Z84.1 Family history of disorders of kidney and ureter; Z68.26 Body mass index [BMI] 26.0-26.9, adult
CPT/HCPCS: 10040; 10045; 32100; 50010; 50101; 50386; 50417; 62110; 62900; 70005

== ENCOUNTER 2018-03-28 11:16 | Inpatient (IN) | payer OTHER ==
[~2018-03-28] VITALS: Ht 149.9 cm; Wt 53.5 kg
[~2018-03-28 11:16] MED LIST changes: +ACIDOPHILUS1 EAC4 PO; +COMPAZINE10 MG PO; +FOLIC ACID1 MG PO; +HYDROCODON-ACE1 EAC7 PO; +PROCRIT20000 UNIT IV PUSH
[2018-03-28 12:30] VITALS: BP 106/687
[2018-03-28 16:02] VITALS: BP 106/62
[2018-03-28 19:34] LABS: HEMOGLOBIN 8.4 gm/dL (12.0-15.0); MCH 30.4 pg (26.0-34.0); MCHC 32.4 g/dL (28.0-37.0); MCV 93.9 fL (80.0-100.0); RBC 2.78 mil/uL (4.20-5.00); RDW 20.9 % (10.5-14.5); WBC 10.6 thou/uL (4.0-11.0)
[2018-03-28 19:40] VITALS: BP 124/76
[2018-03-28 19:47] LABS: CALCIUM 7.6 mg/dL (8.5-10.1); CREATININE 2.8 mg/dL (0.6-1.0); POTASSIUM 3.3 mmol/L (3.5-5.1)
[2018-03-28 19:52] LABS: ALBUMIN 1.7 g/dL (3.4-5.0); TOTAL BILIRUBIN 0.4 mg/dL (<0.1-1.0); TOTAL PROTEIN 5.6 g/dL (6.4-8.2)
--- NOTE | 2018-03-28 20:28 | NUR ---
PT ARRIVED ON UNIT DR OBRIEN CALLED STATED DR PRIETO WOUND BE HOSPITALIST. DR PRIETO TO UNIT TO DO ORDERS. ADMISSION PAPERWORK SIGNED BY PATIENT AND FAXED TO ADMISSIONS.
--- NOTE | 2018-03-28 20:33 | NUR ---
CALLED DR PRIETO AND REPORTED LOW BLOOD SUGAR AND THAT PROTOCOL FOLLOWED PT WAS EASILY AROUSED AND ALERT XS4. GAVE FOOD BLOOD SUGAR UP . IV ABT STARTED AND IV MORPHINE AND ZOFRAN GIVEN. IV NURSE HERE AND DID LAB WORK AND PLACED NEW IV PT CANNOT HAVE PICC SHE IS DIAYLSIS PT.
[2018-03-28 20:41] VITALS: BP 106/62
[2018-03-29 05:15] VITALS: BP 121/69
[2018-03-29 05:45] LABS: ABSOLUTE NEUTROPHILS 5.7 thou/uL (1.4-8.2); BASOPHILS 1.1 % (0.0-2.0); EOSINOPHILS 0.7 % (0.0-3.0); HEMATOCRIT 22.7 % (37.0-47.0); HEMOGLOBIN 7.4 gm/dL (12.0-15.0); LYMPHOCYTES 19.1 % (24.0-44.0); MCH 30.4 pg (26.0-34.0); MCHC 32.5 g/dL (28.0-37.0); MCV 93.7 fL (80.0-100.0); MONOCYTES 8.8 % (1.0-8.0); POLYS 70.3 % (36.0-66.0); RBC 2.43 mil/uL (4.20-5.00); WBC 8.2 thou/uL (4.0-11.0)
[2018-03-29 05:53] LABS: PLATELET COUNT 442 thou/uL (150-400)
--- NOTE | 2018-03-29 06:37 | NUR ---
ASSUMED CARE AT 1900, ASSESSMENT COMPLETED. SPOKE WITH IV CONTACT PRINTER DRY FILM, STATED THAT BECAUSE SHE IS A DIALYSIS PT, SHE ISN'T A CANDIDATE FOR A PICC; COMBINED WITH POOR VASCULATURE AND LONG-TERM ABX THERAPY, SHE NEEDS THE PYSICIAN TO ORDER FOR A TICC TO BE PLACED BY IR TODAY. PT C/O SEVERE PAIN AND TENDERNESS AND SACRAL ABSCESS SITE; PURULENT DRAINAGE NOTED AT SITE, FIRM/TENDER/RED. HELD AM DOSE OF HEPARIN IN CASE OF PROCEDURE TODAY. ALSO C/O ITCHING FROM PAIN MEDS, GAVE BENADRYL ONCE; HAS LARGE SCABBED SITES ON BOTH EARS, WOULD POSSIBLY BENEFIT FROM BENADRYL CREAM. NO NAUSEA OR SOB. HAD THREE LOOSE STOOLS OVERNIGHT. CONSULTS CALLED TO DR. PRESCOTT AND DR. CR. BLOOD SUGAR STABLE OVERNIGHT. NO OTHER CONCERNS, WILL CONTINUE TO MONITOR.
[2018-03-29 07:48] VITALS: BP 131/69
--- NOTE | 2018-03-29 09:08 | NUR ---
ASSUMED CARE OF PT AT 0700. ASSESSMENT COMPLETED AND CHARTED. A&O,X4. C/O CHRONIC BACK PAIN AND PERIANAL ABSCESS PAIN, PAIN MEDS REFUSED AT THIS TIME. POC I&D PERIANAL ABSCESS TODAY. SURGEON AT BEDSIDE. PT NPO SINCE MIDNIGHT. ACHS AT 0800 IS 214. INSTRUCTED TO HOLD INSULIN BY PRE OP RN AND THEY WOULD RECHECK. AM MEDS HELD ORDERED. PT LEFT IN STABLE CONDITION FOR SURGERY AT 0900.
[2018-03-29 09:29] LABS: CALCIUM 7.8 mg/dL (8.5-10.1); CREATININE 3.1 mg/dL (0.6-1.0); POTASSIUM 3.8 mmol/L (3.5-5.1)
--- NOTE | 2018-03-29 13:43 | HC ---
[facility] [place] [address] CONSULTATION Name: EVERTON ROMAN Room #: 430-P ADM IN M.R.#: [id number] Admission: 03/28/18 Attend Phys: Melvin Cruz MD Discharge: Date of : 72 Report #: [id number] THIS REPORT FOR: //name// CC: Melvin Galvez [facility] unknown DATE OF SERVICE: 03/28/2018 INFECTIOUS DISEASES CONSULTATION REASON FOR CONSULTATION: I was asked to evaluate concerning perirectal abscess. HISTORY OF PRESENT ILLNESS: The patient is a 47-year-old who transfers from [facility] after being hospitalized there with end-stage renal disease and need for antibiotics for perianal abscess. While there, she had issues with increased pain and persistent leukocytosis. Her antibiotics have been adjusted with no significant improvement. She was therefore transferred for further imaging and followup surgical evaluation. She has had no fever, chills or sweats. Her blood glucose levels have been erratic. REVIEW OF SYSTEMS: There has been no cardiopulmonary, neurologic, skin, lymph or hematologic issues. Ten-point review of systems was, otherwise, negative other than what is described above. She has an issue with incontinence of soft to loose stool. She has a history of C. difficile colitis and has been on prophylactic vancomycin. She has remained on broad-spectrum antibiotic coverage. There has been no abdominal pain, nausea or vomiting. ALLERGIES: AMOXICILLIN, ASPIRIN, IODINE, TAPE, LES INHIBITORS, SOAP. MEDICATIONS: As noted on her MAR including vancomycin and meropenem. PAST MEDICAL HISTORY: Steatohepatitis, esophageal ulceration, gastric erosions, duodenal ulcer, DKA, diabetes, left AV graft, end-stage renal disease, hypertension, peripheral neuropathy, gastroparesis, chronic pain syndrome, anemia. FAMILY HISTORY: Diabetes, end-stage renal disease. SOCIAL HISTORY: Nonsmoker, no significant alcohol intake. PHYSICAL EXAMINATION: VITAL SIGNS: Afebrile and hemodynamically stable. Alert and cooperative, sitting up in her bed, eating dinner, in no acute distress. She appeared her stated age. EYES: Without scleral icterus. [facility] [address] [place] [address] CONSULTATION Name: EVERTON ROMAN Room #: 430-P [facility] IN M.R.#: [id number] Admission: 03/28/18 Attend Phys: Melvin Cruz MD Discharge: Date of : 72 Report #: [id number] MOUTH: Without mucositis. NECK: Supple, with no thyromegaly or mass. Left upper extremity AV fistula unremarkable. SKIN: Without rash or decubitus. No palpable adenopathy. LUNGS: Clear. HEART: Regular, without murmur. ABDOMEN: Soft, nontender with no hepatosplenomegaly or mass. SKIN: Anal wound with blue band in place. While I rolled her on her side, I was able to express a fair amount of purulent material from the wound. There was no definite mass or fluctuance within the buttock region. There was still inflammation around the anus. EXTREMITIES: Without cyanosis, clubbing or edema. Cranial nerves intact. Strength in upper and lower extremities symmetric, normal. Sensation to touch upper and lower extremities normal. PSYCHIATRIC: Mood normal. LABORATORY STUDIES: CT scan showed perianal abscess, which dissects superiorly into the pelvis with gas superior to the obturator internus muscles in contact with inferior and anterior urinary bladder. Bladder wall is thickened. Phlegmonous and fluid collection measured 4.5 x 5 cm on the right and 4.5 x 4.5 cm on the left. No bony destruction. IMPRESSION: Perirectal abscess with extension, I suspect this explains her ongoing pain. Diabetes, end-stage renal disease. RECOMMENDATION: 1. The patient is significantly compromised due to her end-stage renal disease, diabetes and evidence of extension of this inflammatory process. She will require surgical intervention for further debridement along with colonic diversion. 2. Continue broad-spectrum antibiotic coverage. Continue enteral vancomycin due to history of Clostridium difficile colitis. 3. Continue to control diabetes. <ELECTRONICALLY SIGNED> By: Jim Sloan MD 03/29/18 1343 [id number] Jim Sloan MD /nt
--- NOTE | 2018-03-29 14:10 | NUR ---
PT RETURNED TO ROOM AT 14:00 IN STABLE CONDITION. PT DROWSY, AND ORIENTED X4. C/O PERIANAL PAIN POST OP, PAIN MEDS GIVEN ORDERED. PT LYING ON HER RIGHT SIDE FOR COMFORT. VSS. WILL CONTINUE TO MONITOR.
[2018-03-29 16:56] VITALS: BP 122/66
--- NOTE | 2018-03-29 18:54 | NUR ---
DIALYSIS IN PROGRESS NOW. PT PAIN NOT WELL CONTROLLED, NEW IV PAIN MEDS GIVEN ORDERED. EVENING INSULIN HELD DUE TO PT NOT EATING DINNER AND HISTORY OF BRITTLE DIABETIC. NO OTHER CHANGE IN STATUS.
--- NOTE | 2018-03-30 00:08 | NUR ---
ASSUMED PT CARE 1900. PT ALERT AND ORIENTED X4. PT DIALYZED, FINISHED APPROX 0. PT COMPLAINS OF SEVERE PAIN. PT REPOSITIONS SELF. REASSESSMENT COMPLETED. VSS, LOW BLOOD PRESSURE FROM DIALYSIS, WUILL CONTINUE TO MONITOR. PT ATE DINNER LATE, WILL BE NPO AT MIDNIGHT. WILL CONTINUE POC UNTIL EOS.
[2018-03-30 04:00] VITALS: BP 87/49
[2018-03-30 06:03] LABS: MONOCYTES 6.1 % (1.0-8.0); PLATELET COUNT 438 thou/uL (150-400); POLYS 80.9 % (36.0-66.0)
[2018-03-30 06:05] LABS: BASOPHILS 0.9 % (0.0-2.0); EOSINOPHILS 0.1 % (0.0-3.0); HEMATOCRIT 22.2 % (37.0-47.0); HEMOGLOBIN 6.8 gm/dL (12.0-15.0); MCH 30.2 pg (26.0-34.0); MCHC 30.9 g/dL (28.0-37.0); MCV 97.7 fL (80.0-100.0); RBC 2.27 mil/uL (4.20-5.00); RDW 20.9 % (10.5-14.5); WBC 15.9 thou/uL (4.0-11.0)
[2018-03-30 06:19] LABS: CALCIUM 8.1 mg/dL (8.5-10.1); POTASSIUM 4.3 mmol/L (3.5-5.1)
[2018-03-30 06:20] LABS: CREATININE 1.6 mg/dL (0.6-1.0)
--- NOTE | 2018-03-30 11:41 | NUR ---
WOUND CONSULT: PT. WAS SEEN TODAY BY DR. PARNELL AND MYSELF. PT. WENT TO THE OR YESTERDAY WITH DR. PRESCOTT FOR DEBRIDEMENT OF JESSICA-RECTAL ABCESS. SHE RETURNED TODAY FOR A COLOSTOMY AND SECOND LOOK AT JESSICA-RECTAL ABCESS. PT. SURGICAL DRESSING WAS LEFT IN PLACE AT THIS TIME. WOUND CARE WILL CHANGE DRESSING TOMORROW. PT. DOES HAVE DEEP TISSUE INJURYS NOTED TO HER LEFT HEEL, LEFT MEDIAL FOOT AND RIGHT HEEL. RECOMMENDATIONS: LEAVE SUGICAL DRESSING IN PLACE UNTIL WOUND CARE CHANGES. HEEL PROTECTORS TO OFFLOAD PT. AND STAFF NURSE WERE INSTRUCTED ON PLAN OF CARE.
--- NOTE | 2018-03-30 12:33 | NUR ---
ASSESSMENT-PT CAME TO US FROM [facility] BUT PRIOR HAD BEEN LIVING AT HOME WITH HER . PT HAD COLOSTOMY SURGERY TODAY. AT BEDSIDE AND CONFIRMS PLAN TO RETURN TO [facility] ONCE MEDICALLY STABLE. PT NEEDS ASSIST WITH ADLS. PT NORMALLY GOES TO [facility] FOR HEMODIALYSIS. SPOUSE TRANSPORTS TO AND FROM DIALYSIS. PT HAS BEEN ON SERVICE WITH [facility]. PT HAS A ROLLER WALKER AT HOME. FOLLOWING TO ASSIST WITH DC PLANNING.
[2018-03-30 13:35] LABS: PROTIME 15.8 Seconds (9.3-11.4)
[2018-03-30 13:36] LABS: INR 1.5
[2018-03-30 22:15] VITALS: BP 87/43
[2018-03-31 04:30] VITALS: BP 83/47
--- NOTE | 2018-03-31 06:12 | NUR ---
Q 2 HR TURN PROVIDED. DRSG TO JESSICA RECTAL AREA INTACT. REINFORCED WITH EXTRA ABD. COLOSTOMY WITH SOME SEROSANGUINOUS OUTPUT, SOME SMALL AMT OF STOOL NOTED AROUND STOMA. PT IN ALOT OF PAIN, GETTING DIULADID WITH RELIEF. PRAFO BOOTS IN PLACE. EDEMA TO BLE AND BUE. PT IS STQABLE ON ROOM AIR. POOR APPETITE. ANURIC. PLAN FOR TICC PLACEMENT TODAY.
[2018-03-31 07:30] VITALS: BP 100/61
--- NOTE | 2018-03-31 08:54 | NUR ---
OSTOMY CARE; pouch intact, no leakage, scant brownish effluent, stoma pink viable budded, awake but drowsy, informed of teaching info left at bs, also ostomy supplies at bs, due to this [facility] nurse on vacation next week, Deya Munoz covering prn
--- NOTE | 2018-03-31 09:00 | HC ---
[facility] [place] [address] CONSULTATION Name: EVERTON ROMAN Room #: 430-P ADM IN M.R.#: [id number] Admission: 03/28/18 Attend Phys: Melvin Cruz MD Discharge: Date of : 72 Report #: [id number] THIS REPORT FOR: //name// CC: Melvin Galvez [facility] unknown REASON FOR CONSULTATION: End-stage renal disease. REASON FOR PRESENTATION: Worsening perianal abscess. HISTORY OF PRESENT ILLNESS: A 47-year-old with known end-stage renal disease, maintained on hemodialysis every Tuesday, Tuesday and Tuesday. She had been at an LTAC facility for a perianal abscess. She continued to have major pain and leukocytosis. Antibiotic has been adjusted with no further improvement. Because of worsening of her condition, she was transferred for further evaluation and management by the General Surgery. I am being asked to manage her end-stage renal disease. PAST MEDICAL HISTORY: 1. End-stage renal disease. 2. Diabetes mellitus with all of its complication. 3. Peptic ulcer disease. 4. Repeated episodes of diabetic ketoacidosis. 5. Tubal ligation. 6. Peripheral neuropathy. 7. Gastroparesis. FAMILY HISTORY: Mom and dad are diabetic with renal disease. SOCIAL HISTORY: She resides in a nursing facility. MEDICATIONS: 1. Folic acid. 2. Pantoprazole. 3. Lactobacillus. 4. Midodrine. 5. Vancomycin. REVIEW OF SYSTEMS: GENERAL: Occasional fever. CARDIOVASCULAR: No chest pain or palpitation, but significant edema. PULMONARY: No cough or hemoptysis. GASTROINTESTINAL: Decreased oral intake. SKIN: As per the history of present illness. NEUROLOGICAL: No headache, no dizziness. [facility] [address] [place] [address] CONSULTATION Name: LANIWILLIAMEVERTON Zayda Room #: 430-P [facility] IN ..#: [id number] Admission: 03/28/18 Attend Phys: Melvin Cruz MD Discharge: Date of : 72 Report #: [id number] ALLERGIES: SOAP and LES INHIBITOR along with ASPIRIN. PHYSICAL EXAMINATION: GENERAL: Alert, oriented, in no apparent distress. VITAL SIGNS: Temperature 36.7, blood pressure 131/69. HEAD AND NECK: No jugular venous distention. CHEST: Decreased air entry bilaterally. CARDIOVASCULAR: No rub. ABDOMEN: Soft, nontender. LOWER EXTREMITIES: +3 edema. GENITOURINARY: I did not examine her perirectal area; however, images revealed significant purulent discharge. IMAGING: There is a perianal abscess that is dissecting into the pelvis and gas present superior to the obturator internus muscle and it contacts the inferior and anterior urinary bladder. LABORATORY DATA: Reviewed. White blood cell count 8.2. Sodium 136, potassium 3.3, BUN is 10, creatinine is 2.8. ASSESSMENT, IMPRESSION AND PLAN: 1. End-stage renal disease. 2. Perirectal abscess with extension into the obturator internus muscles and in close proximity to the urinary bladder. 3. We will arrange for the patient to have her usual hemodialysis every Tuesday, Tuesday and Tuesday. She will need aggressive ultrafiltration for her fluid overload. Antibiotic per ID. 4. Need surgical intervention as soon as possible. <ELECTRONICALLY SIGNED> By: Laure López MD 03/31/18899 [id number] 09 Laure López MD /nt
[2018-03-31 11:36] LABS: HEMOGLOBIN 7.6 gm/dL (12.0-15.0)
[2018-03-31 12:06] VITALS: BP 77/40
--- NOTE | 2018-03-31 15:48 | NUR ---
UPDATE PROVIDED TO OLIVA FROM [facility]. PLAN IS FOR FURTHER SURGERY NEXT WEEK. [facility] IS HOPEFUL PT WILL BE ABLE TO RETURN ON OR BEFORE 04/05/17.
--- NOTE | 2018-03-31 16:05 | NUR ---
WOUND FOLLOW UP: PT. WAS SEEN TODAY BY DR. PARNELL AND MYSELF. PT. SURGICAL DRESSING WAS CHANGED. WOUND BED IS HEALTHY AT THIS TIME BUT, PT. IS STILL IN A GREAT DEAL OF PAIN. RECOMMENDATIONS: CONTINUE WITH CURRENT PLAN OF CARE. PT. AND STAFF NURSE WERE INSTRUCTED ON PLAN OF CARE.
[2018-03-31 16:30] VITALS: BP 78/49
--- NOTE | 2018-03-31 20:24 | NUR ---
ASSUMED PT CARE AT 0700H. PT A&O X4. PT STATES PAIN AT 10/10. PT TOLERATES MEDS. PT NPO AT THE TIME. INSULIN NOT GIVEN FOR BREAKFAST. PT HAD TICC AT R. CHEST. PT DRESSING C/D/I. PT ISOLATION DC'D. PT PERIRECTAL WOUND SEEN BY WOUND CARE. PT DRSG C/D/I. PT HAD FEW BITES OF LUNCH. PT CURRENTLY ON DIALYSIS. PT CONTINUES TO BE TURN Q2H. PT HEELS ON PRESSURE BOOT. PT ON SCD'S. PT CALL LIGHT WITHIN REACH. PT CONTINUES TO BE MONITORED FOR SAFETY.
[2018-03-31 22:10] VITALS: BP 107/60
[2018-04-01 04:38] VITALS: BP 90/38
[2018-04-01 05:39] LABS: ABSOLUTE NEUTROPHILS 5.8 thou/uL (1.4-8.2); BASOPHILS 1.7 % (0.0-2.0); EOSINOPHILS 1.5 % (0.0-3.0); HEMATOCRIT 23.4 % (37.0-47.0); HEMOGLOBIN 7.7 gm/dL (12.0-15.0); LYMPHOCYTES 22.7 % (24.0-44.0); MCHC 32.8 g/dL (28.0-37.0); MCV 91.4 fL (80.0-100.0); MONOCYTES 6.1 % (1.0-8.0); PLATELET COUNT 360 thou/uL (150-400); RBC 2.56 mil/uL (4.20-5.00); RDW 18.4 % (10.5-14.5); WBC 8.5 thou/uL (4.0-11.0)
[2018-04-01 06:01] LABS: CREATININE 1.4 mg/dL (0.6-1.0)
--- NOTE | 2018-04-01 06:29 | NUR ---
pt repositioned through the night. alot of pain with movement. pt getting IV diuladid. afebrile. She has been sleeping since dialysis was completed. colostomy with SS drainage-viable.drsg to lynda-area is intact.Small drainage noted. Continues on IV ABTS.
--- NOTE | 2018-04-01 07:42 | NUR ---
BEFORE REPORT, REC REPORT OF LOW BG, NOT RECORDING, NOTED LAB DRAW AT 0430 SHOWS 45. NOC NURSE HELPED. IV FULL AMB D50 GIVEN, WILL CONTINUE TO MONITOR AND CALL PHYSICIAN TO GIVE AN ALERT AFTER NEXT DRAW. PT IS A&0X4, LETHARGIC, YET ANSWERING QUESTIONS. REC REPORT AND HEARD SHE'S NOT GETTING UP AT ALL AND NO APPETITE. ENCOURAGED HER TO USE HER CALL LIGHT FOR ANY NEEDS
--- NOTE | 2018-04-01 08:04 | NUR ---
LAB CALLED TO DO STAT BG PER ANOTHER RN EARLIER, ANOTHER BG TAKEN BY THIS NURSE AND PHYSICIAN CALLED FOR FYI AFTER NEXT BG TAKEN AND REGISTERS 128, ENCOURAGED PT TO EAT A LITTLE BIT FOR HEALING, HEALTH, AND BG
[2018-04-01 08:20] VITALS: BP 91/42
--- NOTE | 2018-04-01 11:13 | NUR ---
PT ATE 50% OF MEAL, IN GOOD SPIRITS EVIDENCED BY JOKING A LITTLE, IN THE MIDST OF THE DIALYSIS, NO ISSUES/NEEDS AT THIS TIME
[2018-04-01 16:45] VITALS: BP 123/83
[2018-04-01 19:55] VITALS: BP 104/63
--- NOTE | 2018-04-02 02:57 | NUR ---
PT ALERT AND ORIENTED. REPOSITONED Q 2. PT HAS BEEN MORE AWAKE AND CONVERSATIONAL THROUGH SHIFT. PAIN MEDS GIVEN WITH FAIR RELIEF. AFEBRILE. BP WNL.HS BLOOD SUGAR WAS 210.PRAFO BOOTS IN PLACE.COLOSTOMY WITH SMALL AMOUNT OF STOOL. JESSICA RECTAL DRSG INTACT. CALL LIGHT WITHIN REACH.
[2018-04-02 16:30] VITALS: BP 129/78
[2018-04-02 20:45] VITALS: BP 125/70
--- NOTE | 2018-04-02 21:09 | NUR ---
PATIENT ALERT AND ORIENTED BUT COMPLAINS OF PAIN AT PERIRECTAL WOUND SITE. PATIENT APPRECIATES WHEN NURSE INDICATES MEDS BEING GIVING AND PROCEDURES BEING PERFORMED AND SCHEDULED. NO VISITORS TODAY. PATIENT HAS INTERMITTENT PAIN AT COLOSTOMY SITE. WILL CONTINUE TO MONITOR.
--- NOTE | 2018-04-03 03:29 | NUR ---
ASSUMED PT CARE 1899. PT ALERT AND ORIENTED X4. TIC SUTURES IN PLACE, BOTH LINES FLUSH AND ASPIRATE FOR BLOOD. FISTULA BRUIT AND THRILL PRESENT. WOUND DRESSING C/D/I. SLIGHT SWELLING TO R FORARM. PT COMPLAINS OF ITCHINESS. PT REPORTS SEVERE PAIN, LITTLWE RELEIF FROM MEDICATION. SCD'S AND PRAFO BOOTS IN PLACE. PT REPORTS NAUSEA, MEDICATION GIVEN- SEE EMAR. COLOSTOMY EMPTIED SOFT SEMI-FORMED STOOL REMOVED. WILL CONTINUE POC UNTIL EOS.
[2018-04-03 05:55] VITALS: BP 116/69
[2018-04-03 07:10] VITALS: BP 118/73
--- NOTE | 2018-04-03 07:32 | HC ---
[facility] [place] [address] CONSULTATION Name: LANIWILLIAMEVERTON Room #: 430-P ADM IN M.R.#: [id number] Admission: 03/28/18 Attend Phys: Melvin Cruz MD Discharge: Date of : 72 Report #: [id number] THIS REPORT FOR: //name// CC: Melvin UP unknown DATE OF SERVICE: 03/30/2018 CHIEF COMPLAINT: Perirectal abscess, status post surgical incision and drainage. HISTORY OF PRESENT ILLNESS: This is a 47-year-old female patient with whom I am familiar from previous hospitalization. She did have a previous perirectal abscess and underwent surgical treatment and was discharged from the hospital. She, however, had worsening pain and the abscess appears to have recurred and is larger. She has undergone a horseshoe type incision and drainage procedure that has now been packed open. I have been asked to follow her for wound care purposes by the general surgeon. PAST MEDICAL HISTORY: Significant for end-stage renal disease, requiring hemodialysis, diabetes mellitus, peripheral neuropathy, gastroparesis, and chronic pain. SOCIAL HISTORY: Negative for alcohol or tobacco use. FAMILY HISTORY: Positive for renal disease and diabetes in her mother. MEDICATIONS: Include protamine, epoetin, hydrocodone, acidophilus, ondansetron and insulin. ALLERGIES: AMOXICILLIN, ASPIRIN, IODINE, TAPE, LES INHIBITORS, and BETADINE BASED SOAP. REVIEW OF SYSTEMS: Limited. She is a little bit somnolent. She complains of significant pain in the surgical region and some nausea as well. Other systems either are not obtainable or negative. PHYSICAL EXAMINATION: VITAL SIGNS: At this time include pulse rate 117, respiration of 18, blood pressure 122/66, temperature 98.4. GENERAL: This is a chronically ill-appearing female patient who appears to be in minimal distress. HEENT: Head normocephalic. NECK: Supple. LUNGS: Clear. ABDOMEN: Slightly distended, nontender. Surgical dressings are noted on the [address] [address] CONSULTATION Name: LANIWILLIAMEVERTON Zayda Room #: 430-P [facility] IN [facility].#: [id number] Admission: 03/28/18 Attend Phys: Melvin Cruz MD Discharge: Date of : 72 Report #: [id number] perirectal region. These were left in place for today. She is postop. EXTREMITIES: Lower extremities are without clubbing or cyanosis. NEUROLOGIC: The patient is alert and symmetrical. LABORATORY DATA: Sodium 138, potassium 4.3, chloride 97, CO2 21, BUN 5, creatinine 1.6, glucose is 255. White blood cell count is 8.5 with hemoglobin of 7.7. CLINICAL IMPRESSION: 1. Perirectal surgical wound following incision and drainage of perirectal abscess. 2. Diabetes mellitus. 3. End-stage renal disease, requiring hemodialysis. RECOMMENDATIONS: At this point in time, we leave the surgical dressing in place today. Likely, we will start with a moist gauze dressing daily at least for the next several days. Hopefully, we can attempt bedside dressing changes, although she may require dressing change. I think she might be a good candidate to transition to a wound VAC. She has had a diverting colostomy and I think we could keep a VAC in place and help her heal a little bit faster if she was able to tolerate this. I appreciate being asked to see her in consultation. <ELECTRONICALLY SIGNED> By: Madhav Yan MD 04/03/18 0732 [id number] Madhav Yan MD /nt
--- NOTE | 2018-04-03 12:12 | NUR ---
WOUND FOLLOW UP: PT. WAS SEEN TODAY BY DR. PARNELL AND MYSELF. PT. WOUND DRESSING IS C/D/I AT THIS TIME. PT. REPORTS LESS PAIN WITH DRESSING CHANGE. RECOMMENDATIONS: CONTINUE WITH CURRENT PLAN OF CARE. PT. AND STAFF NURSE WERE INSTRUCTED ON PLAN OF CARE.
[2018-04-03 16:57] VITALS: BP 133/73
--- NOTE | 2018-04-03 17:01 | NUR ---
FOLLOWING ALONE [facility] CARE TEAM TO SEE IF ADDITIONAL SURGERY IS INDICATED THIS WEEK. IF PT DOESN'T RETURN TO [facility] BUT MIDNIGHT Tuesday04/05/18 PT WILL NEED TO GO TO TELEMETRY FLOOR FOR REV CODES. CM TO FOLLOW INDICATED WITH DC PLANNING.
--- NOTE | 2018-04-03 20:47 | NUR ---
ASSUMED CARE OF PT AT 0700. ASSESSMENT COMPLETED. A&0,X4. C/O BOTTOM PAIN, PAIN MEDS GIVEN ORDERED. RIGHT ARM BRUISED AND TENDER, PHYSICIAN NOTIFIED, INSTRUCTED TO APPLY WARM COMPRESS FOR COMFORT. EXPERIENCING ITCHING, ESPECIALLY EAR LOBES AND AROUND TICC LINE DRESSING, MEDS GIVEN ORDERED. BRITTLE DIABETIC, ACHS, NO INSULIN GIVEN PER SLIDING SCALE. POOR INTAKE AND NAUSEA NOTED, NO VOMITING, SUPPLEMENT PROVIDED AT MEALTIMES. DIALYSIS TODAY, LEFT UPPER ARM FISTULA, BRUIT AND THRILL NOTED. DIALYSIS NURSE REPORTED TAKING OFF [address], 650 ML BROWN/YELLOW/GREEN LIQUID STOOL NOTED. RIGHT TICC LINE, DOUBLE LUMEN IN PLACE, ASPIRATED FOR BLOOD RETURN. PERIRECTAL WOUND CARE GIVEN ORDERED, DRESSING CHANGED. PT TEARFUL AND ANXIOUS AT TIMES, ENCOURAGED TO DEEP BREATH. Q2H TURN AND OFFLOADING BOOTS IN PLACE. VSS.
[2018-04-03 22:00] VITALS: BP 149/98
[2018-04-04] VITALS (8 sets, daily range): BP systolic 98–152; BP diastolic 61–83
--- NOTE | 2018-04-04 04:12 | NUR ---
Assumed care of pt at 1900. Pt alert and oriented x4. C/o pain on lower back and bottom. Prn pain meds administered. Requests benadryl for itching as well. Colostomy bag in place. Pt is a dialysis pt. Dialysis MWF. Per am nurse report, this week dialysis will be W-T-W-F. Refuses to be turned every two hours. Turned twice during shift per pt request. Anuric. Pt calls appropriately. Will continue to monitor and assist with needs.
--- NOTE | 2018-04-04 08:53 | NUR ---
PATIENT WAS TO HAVE SURGERY TODAY BUT WAS PUT ON DIAYLSIS AT 0800. DR PRESCOTT TO DO SURGERY TOMMORROW AT 1000 PT TO HAVE DIET TODAY AND NPO AT MIDNIGHT WILL GIVE AM MEDS AFTER DIAYLSIS.
--- NOTE | 2018-04-04 12:41 | NUR ---
PT BACK FROM DIAYLSIS REMOVED 2.5 L PT TO EAT LUNCH AND GET MEDS AND INSULIN AFTER SEEING WOUND CARE DOCTOR.
--- NOTE | 2018-04-04 13:47 | NUR ---
WOUND FOLLOW UP: PT. WAS SEEN TODAY BY DR. PARNELL AND MYSELF. PT. DRESSING IS C/D/I AT THIS TIME. PT. HAD JUST RETURNED FROM DYALSIS TREATMENT AND LUNCH HAD ARRIVED SHE ASKED TO NOT HAVE HER WOUND CARE DONE AT THIS TIME. DISCUSSED PLAN FOR TRIP TO THE OR TOMORROW WITH DR. PRESCOTT. PT. IS AGREEABLE TO PLAN. RECOMMENDATIONS: CONTINUE WITH CURRENT PLAN OF CARE. PT. AND STAFF NURSE WERE INSTRUCTED ON PLAN OF CARE.
--- NOTE | 2018-04-05 00:14 | NUR ---
ASSUMED PT CARE 190. PT ALERT AND ORIENTED. VSS. BLOOD SUGAR SLIGHTLY LOW, ORANGE JUICE GIVEN, BLOOD SUGAR RECHECKED AND SUGAR GOOD. WOUND DRESSING C/D/I. TICC IN PLACE, DRESSING C/D/I. BOTH LINES FLUSH AND ASPIRATE FOR BLOOD. CONTINUING Q2 TURNS. WILL CONTINUE POC UNTIL EOS.
[2018-04-05 04:41] VITALS: BP 132/88
[2018-04-05 07:35] LABS: HEMATOCRIT 24.7 % (37.0-47.0); HEMOGLOBIN 8.2 gm/dL (12.0-15.0); MCH 30.4 pg (26.0-34.0); MCHC 33.2 g/dL (28.0-37.0); MCV 91.5 fL (80.0-100.0); RBC 2.7 mil/uL (4.20-5.00); RDW 18.4 % (10.5-14.5); WBC 9.9 thou/uL (4.0-11.0)
[2018-04-05 07:44] LABS: CALCIUM 8.6 mg/dL (8.5-10.1); CREATININE 3.5 mg/dL (0.6-1.0); POTASSIUM 4.2 mmol/L (3.5-5.1)
--- NOTE | 2018-04-05 07:47 | NUR ---
ASSUMED PT CARE AT AROUND 0130. PT REPOSITIONED Q2HRS. WOUND DRSG CHANGE PROVIDED. COLOSTOMY EMPTIED. PT ALERT AND ORIENTED. PAIN MEDS GIVEN WITH RELIEF.
[2018-04-05 07:50] VITALS: BP 112/75
--- NOTE | 2018-04-05 08:20 | NUR ---
PT PLACED ON HOLD TODAY FROM P.T. WITH PLANS FOR SURGICAL INTERVENTION. REQUEST NEW P.T. ORDERS ONCE PT IS APPROPRIATE TO PARTICIPATE IN THERAPEUTIC ACTIVITIES.
[2018-04-05 09:15] VITALS: BP 128/77
[2018-04-05] MEDS ORDERED: FIRVANQ50 MG/1 ML PO (11:22)
[2018-04-05] MEDS ORDERED: MEROPENEM1 GM IV (11:22)
--- NOTE | 2018-04-05 17:01 | NUR ---
PT, DISCHARGING TODAY TO [facility]. FAXED DC ORDERS/SUMMARY TO FACILITY AND SPOKE WITH OLIVA SHE RECEIVED ORDERS AND TRANSPORTATION SET UP FOR 1829. FAMILY NOTIFIED BY SW. UNIT NOTIFIED AND CHART COPY PER US. RN TO CALL REPORT TO [phone].
--- NOTE | 2018-04-05 20:03 | NUR ---
PT DISCHARGED AT 1830 [facility] HERE TO TRANSPORT PATIENT TO [facility]. ALL BELONGINGS PACKED AND SENT WITH PATIENT GIVEN PRN PAIN MED AND ZOFRAN TO PATIENT BEFORE DISCHARGE. PT HAD DEBRIDEMENT , DIAYLSIS TODAY. TO HAVE WOUND VAC TO [facility] AT [facility].
== END 2018-04-05 19:45 | DRG 853 ==
LOC: 4E 11:16
PROVIDERS: Anesthesiology; Hospitalist; Student in an Organized Health Care Education/Training Program; ADMIT Hospitalist
PROC: 5A1D70Z Performance of Urinary Filtration, Intermittent, Less than 6 Hours Per Day (ICD-10-PCS; 2018-03-28)
PROC: 0KBM0ZZ Excision of Perineum Muscle, Open Approach (ICD-10-PCS; principal; 2018-03-29)
PROC: 0D1L0Z4 Bypass Transverse Colon to Cutaneous, Open Approach (ICD-10-PCS; 2018-03-30)
PROC: 30233N1 Transfusion of Nonautologous Red Blood Cells into Peripheral Vein, Percutaneous Approach (ICD-10-PCS; 2018-03-30)
PROC: 0JH63XZ Insertion of Tunneled Vascular Access Device into Chest Subcutaneous Tissue and Fascia, Percutaneous Approach (ICD-10-PCS; 2018-03-31)
PROC: B2141ZZ Fluoroscopy of Right Heart using Low Osmolar Contrast (ICD-10-PCS; 2018-03-31)
PROC: 02H633Z Insertion of Infusion Device into Right Atrium, Percutaneous Approach (ICD-10-PCS; 2018-03-31)
PROC: B244YZZ Ultrasonography of Right Heart using Other Contrast (ICD-10-PCS; 2018-03-31)
PROC: 0KBM0ZZ Excision of Perineum Muscle, Open Approach (ICD-10-PCS; 2018-04-05)
PROC: 5A1D70Z Performance of Urinary Filtration, Intermittent, Less than 6 Hours Per Day (ICD-10-PCS; 2018-04-05)
DX: A41.9 Sepsis, unspecified organism (principal); N18.6 End stage renal disease; E43 Unspecified severe protein-calorie malnutrition; I12.0 Hypertensive chronic kidney disease with stage 5 chronic kidney disease or end stage renal disease; K61.2 Anorectal abscess; E11.22 Type 2 diabetes mellitus with diabetic chronic kidney disease; L89.899 Pressure ulcer of other site, unspecified stage; E11.43 Type 2 diabetes mellitus with diabetic autonomic (poly)neuropathy; K31.84 Gastroparesis; D50.0 Iron deficiency anemia secondary to blood loss (chronic); I95.9 Hypotension, unspecified; Z68.23 Body mass index [BMI] 23.0-23.9, adult; E87.6 Hypokalemia; Z87.11 Personal history of peptic ulcer disease; Z99.2 Dependence on renal dialysis; Z79.4 Long term (current) use of insulin; Z79.899 Other long term (current) drug therapy; Z88.6 Allergy status to analgesic agent; Z88.1 Allergy status to other antibiotic agents; Z91.041 Radiographic dye allergy status; Z88.8 Allergy status to other drugs, medicaments and biological substances; Z91.048 Other nonmedicinal substance allergy status; Z83.3 Family history of diabetes mellitus; Z84.1 Family history of disorders of kidney and ureter
CPT/HCPCS: 10783; 32100; 50010; 50101; 50386; 50403; 56526; 56528; 57092; 57119; 57120; 62110; 62900; 70005

== ENCOUNTER 2018-05-09 02:21 | Emergency (ER) | payer OTHER ==
[~2018-05-09] VITALS: Ht 149.9 cm; Wt 54.4 kg
[~2018-05-09 02:21] MED LIST changes: +MEROPENEM1 GM IV
[2018-05-09 03:12] LABS: ABSOLUTE NEUTROPHILS 2.3 thou/uL (1.4-8.2); BASOPHILS 1.2 % (0.0-2.0); EOSINOPHILS 4.7 % (0.0-3.0); HEMATOCRIT 24.6 % (37.0-47.0); HEMOGLOBIN 7.8 gm/dL (12.0-15.0); LYMPHOCYTES 40.9 % (24.0-44.0); MCH 29.5 pg (26.0-34.0); MCHC 31.7 g/dL (28.0-37.0); MONOCYTES 8.7 % (1.0-8.0); PLATELET COUNT 261 thou/uL (150-400); POLYS 44.5 % (36.0-66.0); RBC 2.64 mil/uL (4.20-5.00); RDW 17.4 % (10.5-14.5); WBC 5.2 thou/uL (4.0-11.0)
[2018-05-09 03:13] LABS: CALCIUM 8.5 mg/dL (8.5-10.1); CREATININE 3.8 mg/dL (0.6-1.0); POTASSIUM 3.4 mmol/L (3.5-5.1)
[2018-05-09 05:52] VITALS: BP 110/63
== END 2018-05-09 05:52 ==
LOC: ER 02:21
PROVIDERS: Emergency Medicine
DX: T82.898A Other specified complication of vascular prosthetic devices, implants and grafts, initial encounter (principal); R60.0 Localized edema; I12.0 Hypertensive chronic kidney disease with stage 5 chronic kidney disease or end stage renal disease; E11.22 Type 2 diabetes mellitus with diabetic chronic kidney disease; N18.6 End stage renal disease; Z99.2 Dependence on renal dialysis; Z79.4 Long term (current) use of insulin; E11.42 Type 2 diabetes mellitus with diabetic polyneuropathy; Z88.1 Allergy status to other antibiotic agents; Z88.6 Allergy status to analgesic agent; Z88.8 Allergy status to other drugs, medicaments and biological substances; Y84.1 Kidney dialysis as the cause of abnormal reaction of the patient, or of later complication, without mention of misadventure at the time of the procedure; Y73.8 Miscellaneous gastroenterology and urology devices associated with adverse incidents, not elsewhere classified

== ENCOUNTER 2018-05-16 10:34 | Inpatient (IN) | payer OTHER ==
[~2018-05-16] VITALS: Ht 149.8 cm; Wt 46.8 kg
[2018-05-16] VITALS (9 sets, daily range): BP systolic 93–141; BP diastolic 56–82
[~2018-05-16 10:34] MED LIST changes: +FOLIC ACID0.8 MG PO; -FOLIC ACID1 MG PO
[2018-05-16 11:24] LABS: ABSOLUTE NEUTROPHILS 4.1 thou/uL (1.4-8.2); BASOPHILS 0.6 % (0.0-2.0); EOSINOPHILS 0.4 % (0.0-3.0); HEMATOCRIT 26.3 % (37.0-47.0); HEMOGLOBIN 8.6 gm/dL (12.0-15.0); LYMPHOCYTES 8.1 % (24.0-44.0); MCH 30.4 pg (26.0-34.0); MCHC 32.7 g/dL (28.0-37.0); MONOCYTES 1.9 % (1.0-8.0); PLATELET COUNT 105 thou/uL (150-400); RBC 2.83 mil/uL (4.20-5.00); RDW 18.5 % (10.5-14.5); WBC 4.6 thou/uL (4.0-11.0)
[2018-05-16 11:39] LABS: CALCIUM 8.6 mg/dL (8.5-10.1); CREATININE 4.2 mg/dL (0.6-1.0); TOTAL BILIRUBIN 0.4 mg/dL (<0.1-1.0); TOTAL PROTEIN 5.3 g/dL (6.4-8.2)
[2018-05-16] MEDS ORDERED: BENADRYL25 MG PO (11:39)
[2018-05-16 11:42] LABS: POTASSIUM 2.8 mmol/L (3.5-5.1)
[2018-05-16] MEDS ORDERED: MORPHINE 110 MG/1 ML SUBLING (11:43)
[2018-05-16] MEDS ORDERED: OXYCODONE HCL10 MG PO (11:43)
[2018-05-16] MEDS ORDERED: PHENERGAN 25 MG25 M1 PO (11:44)
[2018-05-16 11:48] LABS: ANISOCYTOSIS 2+; PLATELET ESTIMATE NORMAL
[2018-05-16] MEDS ORDERED: TRULICITY0.75 MG/0. SUBQ (14:58)
[2018-05-16] MEDS ORDERED: LASIX 80 MG TAB80 MG PO (14:58)
[2018-05-16] MEDS ORDERED: REGLAN 5 MG TAB5 MG PO (14:59)
[2018-05-16] MEDS ORDERED: SYMBICORT80 MCG/4.1 INH (15:00)
[2018-05-16] MEDS ORDERED: VENTOLIN HFA 1818 GM INH (15:00)
[2018-05-16] MEDS ORDERED: OMEPRAZOLE 20 M20 M1 PO (15:01)
--- NOTE | 2018-05-16 16:29 | NUR ---
PT TRANSFER FROM CCU TO ICU PT IS LETHARGIC WITH SEPSIS HYPOKALEMIA AND CHRONIC RENAL FAILURE. DR. MARQUEZ AWARE WANTS CT DONE. CT NOTIFIED. WILL TAKE PT DOWN FOR TEST. TEMEPATURE IS 98.7 IN THE UNIT. VS STABLE. LUNGS ARE CLEAR. ABDOMEN IS SOFT AND FLAT. BOOTS ON COLOSTOMY BAG IN PLACE WILL OBTAIN STOOL FOR CDIFF REMAINS IN ISOLATION IN THE UNIT AT THIS TIME. CONSULTED INFECTIOUS DISEASE TO SEE PT AND DR. MORRIS SAW PT IN THE UNIT. WILL CONTINUE TO MONITOR AND ASSESS PER NURSING
[2018-05-17] VITALS (12 sets, daily range): BP systolic 92–159; BP diastolic 53–98
[2018-05-17 06:54] LABS: ABSOLUTE NEUTROPHILS 5.6 thou/uL (1.4-8.2); BASOPHILS 0.1 % (0.0-2.0); HEMATOCRIT 26.8 % (37.0-47.0); HEMOGLOBIN 8.5 gm/dL (12.0-15.0); MCH 30.3 pg (26.0-34.0); MCHC 31.8 g/dL (28.0-37.0); MCV 95.1 fL (80.0-100.0); MONOCYTES 1.6 % (1.0-8.0); POLYS 93.3 % (36.0-66.0); RBC 2.82 mil/uL (4.20-5.00); RDW 18.8 % (10.5-14.5)
[2018-05-17 07:09] LABS: ALBUMIN 2.8 g/dL (3.4-5.0); CALCIUM 8.6 mg/dL (8.5-10.1); CREATININE 4.6 mg/dL (0.6-1.0); TOTAL BILIRUBIN 0.8 mg/dL (<0.1-1.0); TOTAL PROTEIN 5.8 g/dL (6.4-8.2)
[2018-05-17 07:10] LABS: POTASSIUM 4.6 mmol/L (3.5-5.1)
[2018-05-17 08:58] LABS: ANISOCYTOSIS 2+; HYPOCHROMASIA 1+; LARGE PLATELETS FEW; PLATELET COUNT 85 thou/uL (150-400); PLATELET ESTIMATE DECREASED
--- NOTE | 2018-05-17 14:33 | HC ---
[facility] [place] [address] CONSULTATION Name: ABELEVERTON T Room #: 236-P ADM IN M.R.#: [id number] Admission: 05/16/18 ������������������ Attend Phys: Linsey Hankins MD Discharge: ������������������ Date of : 72 Report #: [id number] THIS REPORT FOR: //name// CC: Linsey Hankins DATE OF SERVICE: 05/16/2018 REASON FOR CONSULTATION: I was asked to evaluate concerning severe sepsis in the setting of end-stage renal disease and a known perianal abscess. HISTORY OF PRESENT ILLNESS: The patient is a 48-year-old who presents with a 24-hour history of fever, chills, sweats, lower abdominal and back pain. Approximately 2 months, she underwent a debridement of a rectal fistula. She now has a drain in place. She has end-stage renal disease and diabetes. She has been hospitalized for extended period of time with growth of Prevotella and group F strep from her abscess. SHE HAS ALLERGY TO PENICILLIN. has been treated with meropenem. She also has a history of C. difficile colitis and was on enteral vancomycin during the time of her IV antibiotic therapy. She subsequently finished her course and was at [facility] when the above noted issues occurred, now admitted through the Emergency Room in the Intensive Care Unit for further resuscitation with fluids, IV antibiotic therapy. She has had a previous diverting colostomy. She has had no nausea or vomiting. She has had a reasonable amount of stool from her ostomy. No cough or sputum production. No chest pain. Denies any palpitations. She has had no seizure disorder or psychiatric issues. No lymphadenopathy reported. No bleeding issues. She does have a left upper extremity AV fistula, which was investigated earlier this week for a malfunction. She has had no cough or sputum production. No blood in her stool. She has minimal urine output due to her end-stage renal disease and ongoing dialysis. REVIEW OF SYSTEMS: Negative other than as described above including 10-point review. ALLERGIES: AMOXICILLIN, ASPIRIN, IODINE, TAPE, LES INHIBITORS, SOAP. MEDICATIONS: As noted on MAY. She was restarted on meropenem and vancomycin. FAMILY HISTORY: Noncontributory. SOCIAL HISTORY: Nonsmoker, no significant alcohol intake. PHYSICAL EXAMINATION: VITAL SIGNS: Temperature 100.5 degrees, pulse 116, respiration rate 20, blood pressure 98/62. GENERAL: The patient is very weak and lethargic, although was able to converse and [place] [address] CONSULTATION Name: EVERTON ROMAN Room #: 236-P [facility]#: [id number] Admission: 05/16/18 ������������������ Attend Phys: Linsey Hankins MD Discharge: ������������������ Date of : 72 Report #: [id number] EYES: Without scleral icterus. MOUTH: Without mucositis. SKIN: Without rash. She had several pressure wounds to her feet. The perianal ulceration was fairly clean. She had Mojgan drains in place through the anus. Small amount of drainage evident. No fluctuant or periwound abscess identified on exam. No palpable adenopathy. NECK: Supple. LUNGS: Clear, with few crackles in the left base posteriorly. HEART: Regular, without murmur, gallop or rub. ABDOMEN: Mildly distended. She had a mid abdomen colostomy with soft stool in the bag. Mild distention. Mild diffuse tenderness. No guarding or rebound identified. I did not appreciate any hepatosplenomegaly. EXTREMITIES: Left upper extremity AV fistula was mildly tender, although no erythema. Minimal surrounding edema. No cyanosis or edema. Cranial nerves intact. Strength in upper and lower extremities, although generally weak, was reasonable and equal. Sensation to touch equal bilaterally in upper and lower extremities. LABORATORY STUDIES: Lactate was 6.1. Chest x-ray with atelectasis in left base. Influenza antigen negative. Hemoglobin 8.6, WBC 4.6, platelet count was 105,000. She had 89% segs, 8% lymphs. Sodium 136, potassium 2.8, bicarbonate 29, creatinine 4.2, bilirubin 0.4, alkaline phosphatase 160, ALT 17. Blood cultures are pending. CT of the abdomen without contrast, small amount of free fluid within the abdomen and pelvis, sludge within the gallbladder. IMPRESSION: A 48-year-old with sepsis associated with fever. I am suspecting intraabdominal cause of her fever versus left lower lobe infiltrate, most likely. Still could be a bacteremia from her AV fistula, although did not appreciate an abscess surrounding this region. This had recently been evaluated. Also, has a history of C. difficile colitis. No evidence of active diarrhea at this point. RECOMMENDATION: We will continue broad antibiotic coverage. Continue with enteral vancomycin while on broad systemic coverage. She has scheduled repeat imaging studies with contrast. Await blood culture results. Serial chest x-ray to further evaluate left lower lobe process. I have discussed with nursing staff. She will remain in the ICU for full ICU support and sepsis coverage. ��������������������������������������������� <ELECTRONICALLY SIGNED> ���������������������������������������� By: Jim Sloan MD ��������������������������������������������� 05/17/18 1433 1643 0749 Jim Sloan MD /nt
--- NOTE | 2018-05-17 14:38 | NUR ---
Patient admits from [facility] care to [facility] with fever, malaise. Patient prev at [facility] dc to [facility] 04/28. From [facility] dc to [facility]. Patient dializes MWF 630 at [facility]. Per Rn patient somulent today. Sp with spouse to review role of casemgt, left message with admissions at [facility]. Sp with [facility] and updated. Plan return to [facility] once stable. cont to follow.
--- NOTE | 2018-05-17 14:57 | NUR ---
WOUND CONSULT: PT. WAS SEEN TODAY BY THE WOUND CARE TEAM ZI LAWSON AND MYSELF. PT. IS WELL KNOWN TO THE WOUND CARE TEAM. PT. HAS A JESSICA-RECTAL ABCESS THAT IS HEALING WELL ALONG WITH STABLE UNSTAGABLE PRESSURE ULCER TO HER RIGHT HEEL. RECOMMENDATIONS: WOUND CARE TO RIGHT HEEL: GENTLY CLEANSE WITH WOUND CLEANSER OR NORMAL SALINE, PAINT WITH BETADINE, LEAVE OPEN TO AIR, COMPLETE CARES DAILY. WOUND CARE TO JESSICA-RECTAL: GENLTY CLEANSE AREA WITH WOUND CLEANSER OR NORMAL SALINE, APPLY SILVADENE/MORPHINE CREAM, LEAVE OPEN TO AIR, COMPLETE CARES BID. PT. AND STAFF NURSE WERE INSTRUCTED ON PLAN OF CARE.
--- NOTE | 2018-05-17 16:28 | NUR ---
[facility] CLINICAL UPDATE TO FACILITY SPOKE WITH ADM. NAPIER AND SHE RECEIVED UPDATE. DCP TO FOLLOW.
--- NOTE | 2018-05-17 18:30 | NUR ---
End of shift note. Pt HD today 1.5L off. Remains very lethargic but arouses to name and is oriented. Dr. Young consulted for blood sugars. pt remains NPO due to lethargy. Notified Dr. Sloan of + cdiff. Orders given for Marquis Sarah. Will attempt to place it at change of shift.
[2018-05-18] VITALS (68 sets, daily range): BP systolic 107–168; BP diastolic 59–106
--- NOTE | 2018-05-18 05:05 | NUR ---
ASSUMED PT CARE AT 1900. VSS. PT A&0X4. SHE COMPLAINED OF SOME PAIN IN HER BOTTOM. ASSESSMENTS AND MEDS GIVEN ARE DOCUMENTED. PT WAS A FEBRILE ALL NIGHT. PT REFUSED TO HAVE BETADINE PAINTED ON HER RIGHT HEEL. SHE STATED THAT IT GIVES HER HIVES, THUS WOUND CARE TO RIGHT HEEL WAS DONE WITH NORMAL SALINE. PT'S CAME TO SEE HER. SHE APPEARED TO BE IN HIGH SPIRITS. THIS AM, SHE COMPLAINED OF NAUSEA AND ACTUALLY ATTEMPTED TO VOMIT SMALL CLEAR SALIVA FLUID. PT SHARED HER DISCOMFORT. DR FERRER NOTIFIED, NEW ORDERED RECIEVED. PT WAS GIVEN ZOFRAN AND MORPHINE FOR THE PAIN, SHE STATED THAT THESE MEDS WERE INEEFECTIVE. PT STILL TRYING TO SPIT UP, SHE HAD A CUP OF GELLO LAST NIGHT AND SEEMED TO TOLERATE IT WELL. WILL CONTINUE TO MONITOR.
[2018-05-18 08:39] LABS: AMYLASE 53 U/L (25-115); LIPASE 14 U/L (73-393)
--- NOTE | 2018-05-18 09:41 | HC ---
[facility] [place] [address] CONSULTATION Name: EVERTON ROMAN Room #: 236-P ADM IN M.R.#: [id number] Admission: 05/16/18 ������������������ Attend Phys: Linsey Hankins MD Discharge: ������������������ Date of : 72 Report #: [id number] THIS REPORT FOR: //name// CC: Linsey Hankins DATE OF SERVICE: 05/17/2018 ENDOCRINE CONSULTATION LOCATION: [facility] ICU, room 236. The patient of Dr. Hankins. SUBJECTIVE: One of multiple recent admissions for this 48-year-old black female with a variety of medical problems including diabetes mellitus; chronic renal failure, on dialysis; recent sepsis and administration of high dose Solu-Medrol. The patient apparently has had multiple prior admissions for a variety of medical problems. It is stated that she has been controlled on an outpatient basis with an insulin pump; however, the details of the pump settings and the degree of control are not available at this time. The patient is immediately post-dialysis and extremely lethargic. She is unable to give much historical information and most of the information is taken from prior notes. Since admission, the patient was placed on sliding scale insulin and developed extreme hyperglycemia with glucoses almost 600 after administration of one dose of 80 mg of methylprednisolone. The patient is also being treated for apparent sepsis from her dialysis site. The patient was given one higher dose of subcutaneous lispro insulin this morning prior to initiation of dialysis. Otherwise, prior records and current medications are as per chart. I am unable to confirm one notation that the patient has been receiving weekly dulaglutide and I have no information to confirm or deny this treatment and when it was last administered. OBJECTIVE: LABORATORY DATA: As above. Glucoses were in the high 200s prior to administration of high-dose methylprednisolone. PHYSICAL EXAMINATION: GENERAL: Frail 48-year-old black female, in no acute distress. The patient is able to respond to vocal commands, but unable to verbalize much useful information. VITAL SIGNS: Show her temperature to be 98.1, heart rate 110, blood pressure 98/60. SKIN: Warm and moist with slight decreased turgor. Otherwise, the exam is essentially either unobtainable or unchanged from prior notes. ASSESSMENT: Brittle type 1 diabetes in chronic poor control with recent extreme exacerbation and hyperglycemia due to variety of factors including infection, [address] [address] CONSULTATION Name: EVERTON ROMAN Room #: 236-P ADM IN M.R.#: [id number] Admission: 05/16/18 ������������������ Attend Phys: Linsey Hankins MD Discharge: ������������������ Date of : 72 Report #: [id number] discontinuation of prior insulin by continuous subcutaneous route and administration of at least one dose of methylprednisolone. The patient has also had one higher dose of subcutaneous lispro and recently undergone dialysis. The effect of these interventions on blood sugar is not known at this time. PLAN: Will monitor glucose and readjust insulin in an attempt to stabilize and improve glycemic control. The patient is at very high risk for hypoglycemia due to her chronic renal disease. She may benefit from a low dose of basal glargine; however, this is yet to be determined and will be based on subsequent glucoses. Thank you very much for this consultation. I will continue to follow the patient with you and attempt to improve glucose control. ��������������������������������������������� <ELECTRONICALLY SIGNED> ���������������������������������������� By: Osiel Young MD ��������������������������������������������� 05/18/18 0941 1245 0405 Osiel Young MD /nt
--- NOTE | 2018-05-18 19:58 | NUR ---
END OF SHIFT NOTE. PT WITH NV THIS AM, NGT PLACED. VANCOMYCIN ENEMA GIVEN. VSS. STOMA INTACT. PENOSE DRAIN TO RECTUM.
[2018-05-19] VITALS (49 sets, daily range): BP systolic 112–154; BP diastolic 73–101
--- NOTE | 2018-05-19 08:52 | NUR ---
Pt a/o x 4, lethargic, O2 2L NC. SR w/HR in 110s-120s, aware. NPO after midnight per GI as per previous day shift RN. VSS. C/o generalized and back pain, meds given per order. No apparent distress noted. Bed alarm on. Fall precautions in place. Call light within reach. Shift change completed with incoming day-shift RN.
--- NOTE | 2018-05-19 13:15 | NUR ---
WOUND FOLLOW UP: PT. WAS SEEN TODAY BY DR. HOPKINS AND MYSELF. PT. WOUNDS ARE STABLE AT THIS TIME. RECOMMENDATIONS: CONTINUE WITH CURRENT PLAN OF CARE. PT. AND STAFF NURSE WERE INSTRUCTED ON PLAN OF CARE.
--- NOTE | 2018-05-19 13:35 | NUR ---
FAXED CLINICAL UPDATE TO [facility] LEFT MSG WITH ADM. THAT UPDATE FAXED AND NO WEEKEND DISCHARGE. DCP TO FOLLOW.
--- NOTE | 2018-05-19 15:57 | NUR ---
FOLLOWING OF FOR DC PLANNING. CLINICAL INFO REVIEWED. NO W/E DC PLANNED. REQUESTED DC POTATO CHIP COOKER MACHINE UPDATED ADMISSIONS AT [facility] ADMITTED FROM SKILLED REHAB AT FACILITY.
--- NOTE | 2018-05-19 18:28 | NUR ---
PATIENT ALERT AND ORIENTED X4, DROWSY AT TIMES. SINUS RHYTHM ON SATURATION EQUIPMENT OPERATOR. ON 2L NASAL CANNULA. COLOSTOMY IN PLACE AND INTACT. NG TUBE TO RIGHT NARE, CLAMPLED. NO COMPLAINTS OF NAUSA/VOMITIONG. LEFT UPPER ARM FISTULA GRAFT DRESSING IN PLACE AND INTACT. BUTTOCK AND HEEL WOUND MONITORED. PATIENT UPDATED ON THE PLAN OF CARE, NO SIGNS OF ACUTE DISTRESS NOTED AT THIS TIME. WILL CONTINUE TO MONITOR.
--- NOTE | 2018-05-19 19:00 | NUR ---
IS AGREED WITH TRANSFERING PT TO CC TELE.
--- NOTE | 2018-05-19 21:34 | NUR ---
SPOKE WITH WHO IS FLOSSER REGARDING OF THIS PT. HE IS AGREED WITH TRANSFERING PT TO CC TELE.
--- NOTE | 2018-05-19 23:48 | NUR ---
REPORT IS GIVEN TO JASPAL BARBA.
[2018-05-20] VITALS (7 sets, daily range): BP systolic 117–157; BP diastolic 72–97
--- NOTE | 2018-05-20 00:25 | NUR ---
PT LEFT ICU WITH STABLE CONDITIONS. ALL BELONGING ARE SENT TO ROOM 350 WITH PT. HER IS AWARED OF BEING TX AND I WILL CALL HIM WITH ROOM NUMBER IN THE MORNING.
--- NOTE | 2018-05-20 08:19 | NUR ---
Notified her regarding of pt's being tx to room 350.
[2018-05-20 08:46] LABS: HEMOGLOBIN 7.4 gm/dL (12.0-15.0); MCH 29.4 pg (26.0-34.0); MCHC 32.2 g/dL (28.0-37.0); MCV 91.2 fL (80.0-100.0); RBC 2.53 mil/uL (4.20-5.00); RDW 17.5 % (10.5-14.5); WBC 5.5 thou/uL (4.0-11.0)
--- NOTE | 2018-05-20 08:49 | NUR ---
PATIENT IS ALERT AND ORIENTED. PATIENTS PAIN IS TREATED WITH MORPHINE IV. PATIENT IS NPO. PATIENT HAS AN NG THAT IS CLAMPED. COLOSTOMY IS IRRIGATED q6H. PATIENT WAS HYPOGLYCEMIC TREATED WITH DEXTROSE. MENAM.
[2018-05-20 09:03] LABS: ALBUMIN 2.7 g/dL (3.4-5.0); CREATININE 1.9 mg/dL (0.6-1.0); POTASSIUM 3.2 mmol/L (3.5-5.1); TOTAL PROTEIN 5.4 g/dL (6.4-8.2)
[2018-05-20 09:24] LABS: CALCIUM 8.2 mg/dL (8.5-10.1)
--- NOTE | 2018-05-20 18:32 | NUR ---
ASSUMED CARE OF PT AT SHIFT CHANGE. ASSESSMENTS CHARTED. MEDS GIVEN PER MAY. PT ALERT AND ORIENTED, DROWSY. VSS, NO S/SX OF CARDIAC OR RESP DISTRESS NOTED. C/O ABDOMINAL PAIN, PAIN IN JESSICA RECTAL AREA, MANAGED WITH IV PAIN MEDS. PT DIALYZED THIS AM, 2 LITERS TAKEN OFF, TOLERATED WELL. NG REMOVED AND PT STARTED ON CLEAR LIQIUD DIET PER DR. FREEMAN ORDERS. BLOOD SUGARS ACHS, EACH RESULT COMMUNICATED TO DR. FAULKNER. ORDERS GIVEN PER DR. FAULKNER TO ASK NEPHROLOGY IF D5 @ 50/HR CAN BE STARTED, NEPHRO OKAY WITH STARTING D5 @50 RUNNING CONTINUOUS. DENIES CONCERNS AT THIS TIME. WILL CONTINUE TO MONITOR AND FOLLOW POC.
[2018-05-21] VITALS (7 sets, daily range): BP systolic 124–144; BP diastolic 64–87
--- NOTE | 2018-05-21 03:37 | NUR ---
PATIENT AOX4 MAKES NEEDS KNOWN. PAIN CONTROLLED THIS SHIFT. PATIENT TURNED Q 2 HOURS TORELATED. SCD ON AND BOOTS ON. PATIENT HEART RATE WAS >120 MOST OF THE TIME THIS SHIFT.CALLED AROUND 2330 NEW ORDER OF EKG AND 500ML BOLUS. CALLED DR. FAULKNER FOR BS 234 AT HS , NEW ORDER TO GIVE 5 UNITS OF LANTUS AT HS, CONTINUE D5 AND RECKECK BLOOD SUGAR AT 0100 AND 0400. PATIENT STOMA IS BEEFY RED,PROTRUDING NO S/S OF INFECTION, LITTLE LIQUID BM NOTED. PATIENT RECTUM WOUND IS C/D/I NO S/S OF INFECTION.PATIENT IN BED ASLEEP AT THIS TIME BREATHING REGULAR AND UNLABOURED.
[2018-05-21 04:51] LABS: RBC 2.27 mil/uL (4.20-5.00); WBC 4.8 thou/uL (4.0-11.0)
[2018-05-21 04:53] LABS: HEMATOCRIT 20.8 % (37.0-47.0); HEMOGLOBIN 6.8 gm/dL (12.0-15.0); MCH 29.9 pg (26.0-34.0); MCHC 32.6 g/dL (28.0-37.0); MCV 91.5 fL (80.0-100.0); RDW 16.9 % (10.5-14.5)
[2018-05-21 05:09] LABS: ALBUMIN 2.6 g/dL (3.4-5.0); CALCIUM 7.7 mg/dL (8.5-10.1); CREATININE 2.8 mg/dL (0.6-1.0); PHOSPHORUS 1.5 mg/dL (2.5-4.9); POTASSIUM 3.2 mmol/L (3.5-5.1)
--- NOTE | 2018-05-21 18:36 | NUR ---
PATIENT APPEARS WEAK AND SICK. STAYED IN BED THROUGH THE DAY. DID REQUEST PAIN MEDICATION WHICH WAS ADMININSTERED. MED EFFECTIVE. RESPIRATIONS NON LABORED AT THIS TIME.
--- NOTE | 2018-05-22 03:15 | NUR ---
PT REFUSING TO Q2 TURN, EDUCATED PT ON BENEFITS. FOLLOWING POC WITH SPREADSHEET AND CALLING DR. FAULKNER. BLOOD SUGARS WERE 1700 @89 AND 2200 @ [address] FAULKNER SAID GIVE ONE TIME DOSE OF 5 UNITS OF LANTUS AND RECHECK AND CALL AT 0730. FLUSHED STOMA 2X WITH VANCO/NS MIX WHICH IS IN THE ROOM ON THE WINDOW SILL. FOLLOWING POC WITH IVF/IVPB ANTIBIOTICS. PT CALLS OUT WHEN SHE NEEDS SOMETHING VIA CALL LIGHT. IV PAIN MEDICATION REQUESTED 2X. HOURLY ROUNDING.
[2018-05-22 04:45] LABS: HEMATOCRIT 20.5 % (37.0-47.0); HEMOGLOBIN 6.7 gm/dL (12.0-15.0); MCH 29.3 pg (26.0-34.0)
[2018-05-22 04:46] LABS: MCHC 32.5 g/dL (28.0-37.0); MCV 90.1 fL (80.0-100.0); RBC 2.27 mil/uL (4.20-5.00); RDW 17.1 % (10.5-14.5); WBC 6.3 thou/uL (4.0-11.0)
[2018-05-22 05:01] LABS: ALBUMIN 2.6 g/dL (3.4-5.0); CALCIUM 7.7 mg/dL (8.5-10.1); CREATININE 3.7 mg/dL (0.6-1.0); PHOSPHORUS 1.5 mg/dL (2.5-4.9); POTASSIUM 3.3 mmol/L (3.5-5.1)
[2018-05-22 06:33] VITALS: BP 111/70
[2018-05-22 08:06] VITALS: BP 125/78
--- NOTE | 2018-05-22 08:19 | EKG ---
[address] [address] ELECTROCARDIOGRAM REPORT Name: EVERTON ROMAN Room #: 350-P ADM IN M.R.#: [id number] ������������������ Admission: 05/16/18 ������������������ Attend Phys: Linsey Hankins MD Discharge: ������������������ Date of : 72 Report #: [id number] ����������������������������������������������������������������� [id number] THIS REPORT FOR: //name// [facility] Test Date: 2018-05-21 Test Time: 00:18:12 Pat Name: EVERTON ROMAN Department: Room: 350 P Gender: F Field Counsel: : 1970 Requested By: Christian Garcia Order Number: [id number] MD: Kevin Stone Measurements Intervals [place] Rate: 125 P: 73 [place]: 115 QRS: 24 QRSD: 76 T: 89 QT: 340 QTc: 491 Interpretive Statements Sinus tachycardia Early R-wave progression No previous ECGs available for comparison Electronically Signed On 05-22-2018 8:19:48 CDT by Kevin Stone [email or web address] ��������������������������������������������� <ELECTRONICALLY SIGNED> ���������������������������������������� By: Kevin Stone MD, LOCATED WITHIN [facility] ��������������������������������������������� 05/22/18 0819 0018 0018 Kevin Stone MD, FACC /EPI
--- NOTE | 2018-05-22 08:28 | HC ---
[facility] [place] [address] CONSULTATION Name: ELIZABETHSTANTONAMANDAWILLIAMEVERTON Zayda Room #: 350-P ADM IN M.R.#: [id number] Admission: 05/16/18 ������������������ Attend Phys: Linsey Hankins MD Discharge: ������������������ Date of : 72 Report #: [id number] THIS REPORT FOR: //name// CC: Linsey Hankins DATE OF SERVICE: 05/17/2018 REASON FOR CONSULTATION: End-stage renal disease. REASON FOR PRESENTATION: Hypotension, mental status issues. HISTORY OF PRESENT ILLNESS: Well-known patient to me. She is a 48-year-old with extensive past medical history including end-stage renal disease, maintained on hemodialysis. She recently had thrombectomy of her AV graft x 2. This happened in the last 48 hours. She presented with fever, chills, lower abdominal pain and back pain. The patient has a perirectal abscess, fistula drained about 2 months ago and was treated accordingly with antibiotic and diversion colostomy. She was then sent to [facility]. She has extreme noncompliance with her fluid status. She was sent to a rehab facility to continue with her wound care. She presented yesterday with the above-mentioned symptoms and was found to be in septic shock. She grew Gram-negative rods in her blood. I am being consulted to manage her end-stage renal disease. She has history of C. diff and had some issues with her potassium yesterday. CT abdomen and pelvis was unremarkable for any acute process. PAST MEDICAL HISTORY: 1. End-stage renal disease, maintained on hemodialysis. 2. Diabetes mellitus. 3. All complications of diabetes including neuropathy, retinopathy, nephropathy. 4. Recent perirectal abscess and fistula. 5. Recent diversion colostomy. 6. C. diff. 7. Clotted AV graft x 2. ALLERGIES: AMOXICILLIN, ASPIRIN, IODINE. SOCIAL HISTORY: She resides in a rehab facility. She is . No drug or alcohol abuse. FAMILY HISTORY: Significant for CKD, her mom had issues with her kidneys. MEDICATIONS: 1. Procrit. 2. Omeprazole. 3. Insulin pump. [facility] [address] [place] [address] CONSULTATION Name: EVERTON ROMAN Room #: 350-P [facility] IN ..#: [id number] Admission: 05/16/18 ������������������ Attend Phys: Linsey Hankins MD Discharge: ������������������ Date of : 72 Report #: [id number] 4. Meropenem and vancomycin in the past. REVIEW OF SYSTEMS: GENERAL: Significant for fever and chills. CARDIOVASCULAR: No chest pain. PULMONARY: Significant for shortness of breath. GASTROINTESTINAL: Lower abdominal pain. Noted an increase in the diversion colostomy output. MUSCULOSKELETAL: Diffuse myalgias and pain at the site of her perirectal abscess. PHYSICAL EXAMINATION: GENERAL: She is awake, but lethargic. VITAL SIGNS: Temperature was up to 101 yesterday. Blood pressure is soft at 92/70. HEAD AND NECK: No jugular venous distention. CHEST: Decreased air entry bilaterally. CARDIOVASCULAR: No rub. ABDOMEN: Diversion colostomy. LOWER EXTREMITIES: +4 edema. LABORATORY DATA: Values reviewed. White blood cell count was 6000, platelets was 85,000. Blood sugar is 526. Lactic acid was 4.8. She is growing Gram-negative in her blood. ASSESSMENT, IMPRESSION AND PLAN: 1. Colitis. 2. Gram-negative rods in blood. 3. Septic shock. 4. Recent perirectal abscess. 5. History of Clostridium difficile. 6. We will arrange for the patient to have her usual hemodialysis today. 7. Needs extensive fluid removal given her extensive anasarca. This is due to very poor compliance with her salt and fluid restriction. 8. ID has been following her for her gram-negative bacteremia. 9. Antibiotics. 10. Wound care. 11. Repeated and numerous admissions in the last couple of months with very poor overall prognosis. ��������������������������������������������� <ELECTRONICALLY SIGNED> ���������������������������������������� By: Laure López MD ��������������������������������������������� 05/22/18 0828 [id number] Laure López MD /nt
[2018-05-22 13:30] VITALS: BP 97/44
--- NOTE | 2018-05-22 14:37 | NUR ---
dp sent clinical updates to [facility], anticipate discharge tomorrow. Dp will call [facility] to make certain they received updates.
--- NOTE | 2018-05-22 15:51 | NUR ---
MARLEN reviewed chart and spoke with nursing. Pt was transferred to 3 from ICU and is progressing towards goals for discharge. Discharge back to [facility] is anticipated for tomorrow. special events planner faxed updates to the facility. Pt currently receiving dialysis in her room. MARLEN spoke with pt's , Kenrick, via phone to provide update and notify of anticipated discharge tomorrow. Kenrick is aware and agreeable with discharge plan. MARLEN is following to assist as needed with discharge planning.
--- NOTE | 2018-05-22 17:14 | NUR ---
WOUND FOLLOW UP: PT. WAS SEEN TODAY BY DR. PARNELL AND MYSELF. PT. WOUNDS ARE STABLE AT THIS TIME. RECOMMENDATIONS: CONTINUE WITH CURRENT PLAN OF CARE. PT. AND STAFF NURSE WERE INSTRUCTED ON PLAN OF CARE.
[2018-05-22 17:17] VITALS: BP 137/74
[2018-05-22 19:40] VITALS: BP 134/84
--- NOTE | 2018-05-22 20:04 | NUR ---
PT HAD DIALYSIS TODAY AND SHE HAD 2 1/2 LITERS REMOVED AND RECEIVED A UNIT OF PRBC FOR HGB 6.7...
--- NOTE | 2018-05-23 03:14 | NUR ---
ASSUMED PT CARE AROUND 1900. A&OX4. COMPLETE BED BATH GIVEN. CAME TO VISIT EARLIER IN THE SHIFT. INSULIN GIVEN PER ORDER FROM DR TONY. REPOSITIONED TO PREVENT SKIN BREAKDOWN. PT IS ABLE TO HELP MOVE SELF IN BED. VSS. FALL PRECUATIONS IN PLACE. PROGRESSING TOWARD POC GOALS. WILL CONTINUE TO MONITOR FURTHER.
[2018-05-23 03:36] VITALS: BP 114/70
[2018-05-23 06:05] LABS: HEMATOCRIT 27.4 % (37.0-47.0)
[2018-05-23 08:25] VITALS: BP 127/81
--- NOTE | 2018-05-23 10:24 | NUR ---
PRIYA SPOKE WITH ARIANNE/CLAIRE AT [facility], DP SENT HER UPDATES, PATIENT LIKELY TO DC TODAY.
[2018-05-23 11:49] VITALS: BP 124/79
--- NOTE | 2018-05-23 12:52 | NUR ---
WOUND FOLLOW UP: PT. WAS SEEN TODAY BY DR. PARNELL AND MYSELF. WOUNDS ARE STABLE AT THIS TIME. RECOMMENDATIONS: CONTINUE WITH CURRENT PLAN OF CARE. PT. AND STAFF NURSE WERE INSTRUCTED ON PLAN OF CARE.
--- NOTE | 2018-05-23 13:29 | NUR ---
SW reviewed chart and spoke with nursing. Pt is not medically stable for discharge to [place] [facility] [place] today. planner/scheduler updated the SNF and [facility]. SW left voice message for pt's spouse to provide update. MARLEN is following to assist as needed with discharge planning.
[2018-05-23 15:47] VITALS: BP 115/65
--- NOTE | 2018-05-23 19:18 | NUR ---
PT REQUEST TRANSFER TO CHAIR THIS [place]...SHE WAS HEAVY ASSIST OIF TWO WITH A PIVOT...
[2018-05-23 19:40] VITALS: BP 104/44
[2018-05-24] VITALS: BP 113/69
[2018-05-24 04:05] VITALS: BP 135/43
--- NOTE | 2018-05-24 04:57 | NUR ---
ASSUMED PT CARE AROUND 1900. A&OX4. C/O GENERALIZED ABDOMINAL PAIN. PAIN MEDICATION GIVEN. PT SAT UP IN CHAIR EARLIER IN THE SHIFT. TOLERATED WELL. PT SLEPT PART OF THE NIGHT. RESP EVEN AND UNLABORED. VSS. AFEBRILE. DR FAULKNER NOTIFIED OF BLOOD SUGAR RESULT. NO NEW ORDERS RECEIVED. REPOSITIONED TO PREVENT SKIN BREAKDOWN. FALL PRECAUTIONS IN PLACE. PROGRESSING TOWARD POC GOALS. WILL CONTINUE TO MONITOR FURTHER.
[2018-05-24 06:27] LABS: HEMATOCRIT 26.8 % (37.0-47.0); HEMOGLOBIN 8.9 gm/dL (12.0-15.0); MCH 29.1 pg (26.0-34.0); MCHC 33.3 g/dL (28.0-37.0); MCV 87.2 fL (80.0-100.0); RBC 3.07 mil/uL (4.20-5.00); WBC 5.4 thou/uL (4.0-11.0)
[2018-05-24 07:18] VITALS: BP 140/89
[2018-05-24 11:54] VITALS: BP 129/79
--- NOTE | 2018-05-24 14:50 | NUR ---
DISCHARGE PLANNING. PATIENT IS FROM [facility]. PLAN IS FOR PATIENT TO RETURN TO [facility] ONCE MEDICALLY READY. SPOKE WITH CLAIRE, [facility]MISS[facility] L[facility], UPDATED HER TO PATIENTS DISCHARGE PLAN. CLAIRE TO FACILITATE TRANSPORTATION AND DISCHARGE ONCE DC ORDERS OBTAINED. UNIT CM/SW AWARE. FOLLOWING TO ASSIST WITH DISCHARGE NEEDS.
--- NOTE | 2018-05-24 15:17 | NUR ---
SW reviewed chart and spoke with nursing and attending physician. Pt is progressing towards goals for discharge. Discharge back to [facility] is anticipated in 1-2 days. SW met with pt at bedside to discuss discharge plan. Pt is aware and in agreement with discharge plan. Updates provided to [facility]. SW spoke with pt's via phone to provide update. Pt's spouse is aware and agreeable with discharge plan. SW is following to assist as needed with discharge planning.
[2018-05-24 16:50] VITALS: BP 119/78
--- NOTE | 2018-05-24 17:33 | NUR ---
PT NOTED TO HAVE EDEMA TO FACE TODAY...HAD DIALYSIS AND REMOVED 1.4 L...FLUID RESTRICTIONS
[2018-05-24 20:00] VITALS: BP 125/84
--- NOTE | 2018-05-25 03:17 | NUR ---
PT RESTING QUIETLY IN ROOM THRU THE NOC, REPOSITIONING EVERY 2 HOURS AND NEEDED, PRN PAIN MEDS GIVEN AT HS, VSS, WILL CON'T TO MONITOR PER PPOC.
[2018-05-25 04:00] VITALS: BP 115/71
[2018-05-25 08:59] VITALS: BP 108/71
[2018-05-25 11:54] VITALS: BP 129/68
[2018-05-25] MEDS ORDERED: MEROPENEM500 MG IV (14:40)
[2018-05-25] MEDS ORDERED: ERYPED 200200 MG/51 PO (14:42)
[2018-05-25] MEDS ORDERED: LOPRESSOR25 PO (14:50)
--- NOTE | 2018-05-25 14:53 | NUR ---
DISCHARGE NOTE: MARLEN reviewed chart and spoke with nursing and attending physician. Pt is medically stable for discharge to [facility] today. Attending physician on site writing discharge orders now. data recovery planner to coordinate once orders are finalized. Chart copy requested. MARLEN is following to assist should needs arise.
[2018-05-25] MEDS ORDERED: VANCO IRRIG (15:00)
[2018-05-25] MEDS ORDERED: HYDROCODON-ACE1 EAC7 PO (15:01)
[2018-05-25] MEDS ORDERED: FIRVANQ50 MG/1 ML PO (15:03)
[2018-05-25] MEDS ORDERED: LANTUS100 UNIT/M SUBQ (15:18)
[2018-05-25 16:30] VITALS: BP 114/77
--- NOTE | 2018-05-25 18:17 | NUR ---
REPORT CALLED TO [facility] THEN A FEW MINUTES LATER THE NURSE FROM THERE ( [facility]) CALLED ME BACK STATING THEY ARE NOT GOING TO ACCEPT PATIENT BECAUSE THEY WILL NOT ABLE TO DO DISTAL COLOSTOMY VANCOMYCIN. STATES " WE HAVE NOT BEEN THOUGHT TO DO THAT AND WE DON'T HAVE TIME TO DO THAT ALSO". EXPLAINED TO NURSE THAT IT IS QUITE A SIMPLE PROCEDURE AND I CAN WALK HER OVER THE PHONE ON HOW TO DO TO BUT SHE INSISTED THAT THEY CANNOT ACCPET PATIENT. DR FERRER NOTIFIED AND HE STATED PATIENT SHOULD BE ADMITTED TO LTAC IF FACILITY IS NOT ABLE TO ACCEPT HER.
[2018-05-25 20:00] VITALS: BP 124/87
--- NOTE | 2018-05-26 02:54 | NUR ---
PATIENT IS ALERT AND ORIETNED. PATIENT IS UP TIME 2. PATIENT CAN TURN SELF BUT OCCATIONALY REQUIRES ASSISTANCE. PATIENTS PAIN IS TREATED WITH PAIM MEDICATION. PATIENT STOMA WAS IRRIGATED. PATIENT HAD 2 LARGE SOFT BM THROUGH COLOSTOMY. PATIENT IS ON ROOM AIR. PATIENT IS RESTING COMFORTABLY. PATIENT IS PENDING DIALYSIS MANDA. PATIENT IS PENDING DISCHARGE. PATIENT IS PROGRESSING TO GOALS. WCM.
[2018-05-26 06:37] VITALS: BP 109/72
[2018-05-26 08:15] VITALS: BP 98/53
--- NOTE | 2018-05-26 08:26 | NUR ---
ASSUMED PT CARE AT 0700. PT AWAKE, ALERT/ORIENTED X4. CURRENTLY RECEIVING DIALYSIS. PT SITTING UP IN BED. REPORTS PAIN TO BUTTOCKS RATED 9/10. HYDROCODONE GIVEN. COLOSTOMY IS PROTRUDING, LARGE AND HERNIATED, BAG INTACT. RIGHT CHEST PATRICK IS ASYMPTOMATIC, DRESSING CDI. EDEMA NOTED TO BILATERAL FEET. OPEN SORE TO RIGHT HEEL. BOOTS IN PLACE TO ELEVATE HEELS. WILL CONTINUE WITH CURRENT CARE.
--- NOTE | 2018-05-26 09:56 | NUR ---
MARLEN received call from pt's nurse last evening that [facility] is unable to accept pt back due to pt needing the vancomycin through her colostomy. SNF staff stated they are unable to provide that level of care. Pt's discharge cancelled. Attending physician contacted and stated that pt may need LTAC level of care. MARLEN reviewed chart and contacted [facility] liaison, Cate, to provide update and discuss if their SNF is able to accept pt back. Awaiting call back at this time. MARLEN spoke with pt's spouse via phone to provide update and discussed possible need for LTAC placement. Pt has been to [facility] in the past. Pt's spouse would prefer pt to go to [facility]. MARLEN notified [facility] liaison of new referral. [facility] liaison onsite to evaluate pt and will check pt's Medicare acute days. Pt will need vancomycin until 06/03. MARLEN is following to assist as needed with discharge planning.
[2018-05-26 11:24] VITALS: BP 109/63
--- NOTE | 2018-05-26 13:49 | NUR ---
PT DOING FAIR THIS SHIFT. PAIN IS CONTROLLED WITH HYDROCODONE. PT HAS BEEN TURNED EVERY TWO HOURS. WOUND TO BUTTOCKS WAS CLEANSED AND SILVADENE APPLIED PER ORDERS. BARRIER OINTMENT TO RIGHT HEEL WOUND. HEELS OFFLOADED IN BOOTS. PT HAD ONE SPELL OF NAUSEA THIS AFTERNOON RELIEVED BY REGLAN. PT CURRENTLY RESTING IN BED EATING JELLO. COLOSTOMY WAS FLUSHED WITH VANCOMYCIN ORDERED AROUND 1000. WILL FLUSH AGAIN AROUND 1600. WILL CONTINUE WITH CURRENT CARE.
--- NOTE | 2018-05-26 15:24 | NUR ---
WOUND FOLLOW UP: PT. WAS SEEN TODAY BY DR. PARNELL AND MYSELF. PT. WOUNDS ARE STABLE AND SHE IS READY FOR DISCHARGE WHEN MEDICALLY CLEARED. RECOMMENDATIONS: CONITNUE WITH CURRENT PLAN OF CARE. PT. AND STAFF NURSE WERE INSTRUCTED ON PLAN OF CARE.
[2018-05-26 16:26] VITALS: BP 110/73
[2018-05-26 20:00] VITALS: BP 144/94
--- NOTE | 2018-05-27 01:45 | NUR ---
PATIENT IS ALERT AND OREINTED. PATIENT IS ONE- TWO ASSIST WITH GAITBELT. PATIENT HAD RED BROWN (TOMATO SAUCE COLOR) STOOL. PROVIDER AWARE BLOOD WORK ORDERED. COLOSTOMY APPLIIANCE CHANGED. PATIENT ON ROOM AIR. PATIENTS PAIN CONTROLLED WITH MEDICATION AND REPOSTIONING. PATIENTS NAUSEA TREATED WITH MEDICATION. PATIENT SLEEPING BETTER TONIGHT. PATIENT HAD DIALYSIS YESTERDAY. FISTULA LT AV INTACT GOOD THRILL AND BRUIT. PATIENT IS RESTING COMFORTABLEY IN BED. WCM.
[2018-05-27 04:16] VITALS: BP 117/79
[2018-05-27 05:46] LABS: HEMATOCRIT 26.3 % (37.0-47.0); HEMOGLOBIN 8.7 gm/dL (12.0-15.0); MCH 29.8 pg (26.0-34.0); MCHC 33.2 g/dL (28.0-37.0); MCV 89.7 fL (80.0-100.0); RBC 2.93 mil/uL (4.20-5.00); RDW 17.5 % (10.5-14.5); WBC 9.2 thou/uL (4.0-11.0)
[2018-05-27 07:29] VITALS: BP 132/77
[2018-05-27 08:06] LABS: CREATININE 2.8 mg/dL (0.6-1.0); POTASSIUM 4.5 mmol/L (3.5-5.1)
[2018-05-27 11:50] VITALS: BP 139/86
--- NOTE | 2018-05-27 18:36 | NUR ---
Assumed pt care this am, colostomy care and irrigation done. Wound care and lynda care done, morphine cream placed in the rectum. PIC line patent flushing and withdrawing blood. POC followed and all medications given. Turned pt q2 and transferred the pt from the bed to the recliner. Pt did complain of nausea and vomited once in the am, medication given and relief was noted. Pain was also verbalized and medication given. Asissted pt in her partial bath. Pt is now resting comfortably.
[2018-05-27 20:52] VITALS: BP 149/96
--- NOTE | 2018-05-28 03:02 | NUR ---
ASSUMED PT CARE AROUND 1900. A&OX4. PT SAT UP IN CHAIR AT BEGINNING OF SHIFT. SHE GAVE HERSELF A SPONGE BATH WITH SOME ASSISTANCE, WHILE IN THE CHAIR. C/O BACK PAIN AND PAIN IN RECTUM. PAIN MEDICATION GIVEN. C/O NAUSEA; PRN NAUSEA MEDICATION GIVEN. PT'S FAMILY CAME TO VISIT. PT HAS BEEN ALERT AND AWAKE MOST OF THE NIGHT, DOING CROSSWORD PUZZLES. BG RESULTS CALLED TO DR FAULKNER; ORDER RECEIVED. FALL PRECAUTIONS IN PLACE. PROGRESSING TOWARD POC GOALS. WILL CONTINUE TO MONITOR FURTHER.
[2018-05-28 03:29] VITALS: BP 145/107
[2018-05-28 04:20] VITALS: BP 131/85
[2018-05-28 07:00] VITALS: BP 141/89
--- NOTE | 2018-05-28 07:30 | NUR ---
ASSUMED CARE OF PT AT 0700. [address] FAULKNER NOTIFIED. NO INSULIN ORDERS AT THIS TIME.
--- NOTE | 2018-05-28 12:10 | NUR ---
[address]ULT [address]. [address] FAULKNER NOTIFIED ABOUT RESULT ORDERED. NO INSULIN GIVEN AT THIS TIME.
[2018-05-28 12:58] VITALS: BP 153/83
[2018-05-28 17:37] VITALS: BP 136/82
[2018-05-28 19:10] VITALS: BP 127/77
--- NOTE | 2018-05-28 19:54 | NUR ---
END OF SHIFT. PT IN STABLE CONDITION. C/O CHRONIC PAIN AND NAUSEA, MEDS GIVEN ORDERED. ROOM AIR. SR/ST. NO OTHER CHANGE IN STATUS.
[2018-05-29 03:38] VITALS: BP 134/79
--- NOTE | 2018-05-29 04:46 | NUR ---
ASSUMED PT CARE AROUND 1900. A&OX4. C/O PAIN IN BACK AND IN LOCATION OF RECTAL ABSCESS. ALSO C/O INTERMITTENT NAUSEA. PRN MEDICATIONS GIVEN INDICATED. PT SLEPT MOST OF THE NIGHT. RESP EVEN AND UNLABORED. REPOSITIONED TO PREVENT SKIN BREAKDOWN. VSS. FALL PRECAUTIONS IN PLACE. PROGRESSING TOWARD POC GOALS. WILL CONTINUE TO MONITOR FURTHER.
[2018-05-29 07:11] VITALS: BP 128/73
[2018-05-29 11:53] VITALS: BP 129/74
--- NOTE | 2018-05-29 12:11 | NUR ---
MARLEN reviewed chart and spoke with nursing. [facility] liaison onsite to evaluate pt and states they can accept pt when they have a bed available. MARLEN spoke with pt's spouse via phone to provide update and discuss discharge plan. Pt's spouse confirms that preference is [facility]. SW discussed pt's insurance status. Pt's spouse states that he has insurance, but pt does not. Per pt's spouse, they are working on her Medicaid application. MARLEN updated pt's nurse, attending physician and [facility] liaison. Per liaison, anticipate a bed will be available in 1-2 days. MARLEN updated [facility] liaison. MARLEN is following to assist as needed with discharge planning.
[2018-05-29 15:11] VITALS: BP 145/87
--- NOTE | 2018-05-29 15:34 | NUR ---
WOUND FOLLOW UP: PT. WAS SEEN TODAY BY DR. PARNELL AND MYSELF. PT. WOUND IS CLINICALLY BETTER AND PT. WAS IN [facility] TODAY. RECOMMENDATIONS: CONTINUE WITH CURRENT PLAN OF CARE. PT. AND STAFF NURSE WERE INSTRUCTED ON PLAN OF CARE.
[2018-05-29 17:05] LABS: HEMATOCRIT 28.7 % (37.0-47.0); HEMOGLOBIN 9.5 gm/dL (12.0-15.0); MCH 29.2 pg (26.0-34.0); MCHC 33.1 g/dL (28.0-37.0); MCV 88.3 fL (80.0-100.0); RBC 3.25 mil/uL (4.20-5.00); RDW 18.2 % (10.5-14.5); WBC 6.3 thou/uL (4.0-11.0)
--- NOTE | 2018-05-29 17:09 | NUR ---
[employer] CRE[employer] VAULT WORKER REPORTS SHE TOOK 1.5L OFF [PATIENT TODAY AND BP STAYED STABLE
[2018-05-29 19:13] VITALS: BP 131/81
--- NOTE | 2018-05-29 23:01 | NUR ---
PT REPORT GIVEN TO RECEIVING RN (LONA) AT 3186 05/29/18.
[2018-05-30 00:13] VITALS: BP 134/80
--- NOTE | 2018-05-30 00:46 | NUR ---
ASSUMED PT CARE AT 2315 AFTER RECEIVING REPORT FROM PREVIOUS RN.
--- NOTE | 2018-05-30 03:06 | NUR ---
ASSUMED PT CARE AROUND 2315. PT HAS BEEN SLEEPING MOST OF THE NIGHT. RESP EVEN AND UNLABORED. PT STATED HER PAIN WAS TOLERABLE. REPOSITIONED TO PREVENT SKIN BREAKDOWN. COLOSTOMY INTACT. FALL PRECAUTIONS IN PLACE. PROGRESSING TOWARD POC GOALS. WILL CONTINUE TO MONITOR FURTHER.
[2018-05-30 03:51] VITALS: BP 154/84
[2018-05-30 07:57] VITALS: BP 126/71
[2018-05-30 11:46] VITALS: BP 135/80
--- NOTE | 2018-05-30 13:01 | NUR ---
MARLEN reviewed chart and spoke with nursing. Pt has discharge orders in place. MARLEN contacted [facility] liaison, who states that they do not currently have a room for pt. Pt is on their waiting list. [facility] anticipates having a bed available later today or tomorrow. MARLEN updated attending physician and nursing. Chart copy requested. MARLEN is following to assist as needed with discharge planning.
[2018-05-30 15:24] VITALS: BP 145/87
--- NOTE | 2018-05-30 18:20 | NUR ---
ASSUMED PATIENT CARE AT 0700. NO ANY CHANGE ON THIS SHIFT. NO INSULIN ORDER RECEIVED. PROGESSING TOWARDS POC GOALS.
[2018-05-30 20:14] VITALS: BP 126/81
[2018-05-31 02:46] VITALS: BP 133/78
--- NOTE | 2018-05-31 03:25 | NUR ---
CALM AND COOPERATIVE TONIGHT. SHE HAS ASKED APPROP FOR HELP WITH TURNS AND PAD CHANGES. SHE LEAKS FLUID IMMEDIATELY AFTER THE VANCO IS INFUSED PER COLOSTOMY STOMA. SHE TOLERATES THE INFUSING OF THE FLUID INTO THE STOMA WITHOUT ANY DISCOMFORT. PROGRESSING TOWARD DISCHARGE GOALS.
[2018-05-31 08:19] VITALS: BP 130/74
[2018-05-31 15:40] VITALS: BP 147/89
--- NOTE | 2018-05-31 16:17 | NUR ---
MARLEN reviewed chart and spoke with nursing and attending physician. SW contacted liaison with [facility], who states they do not have a bed today. They anticipated discharges through the rest of the week and should have a bed available. MARLEN met with pt at bedside to provide update. Pt is aware and agreeable with discharge plan. MARLEN spoke with pt's spouse via phone to provide update as well. MARLEN is following to assist as needed with discharge planning.
--- NOTE | 2018-05-31 17:17 | NUR ---
WOUND FOLLOW UP: PT. WAS SEEN TODAY BY DR. PARNELL AND MYSELF. PT. MARIANA DRAIN WAS DISCCUSED WITH DR. PRESCOTT AND ORDERS WERE OBTAINED TO REMOVE THE DRAIN FROM THE JESSICA-RECTAL ABCESS. PT. TOLERATED WELL. RECOMMENDATIONS: CONTINUE WITH CURRENT PLAN OF CARE. PT. AND STAFF NURSE WERE INSTRUCTED ON PLAN OF CARE.
--- NOTE | 2018-05-31 20:15 | NUR ---
ASSUMED CARE OF PT AT APPROX 0700. PT IS ALERT AND ORIENTED X4, MONITORED ON TELE AND ABLE TO MAINTAIN 02 SAT >90 ON RA. DENIES SOA. NO PAIN. ASSESSMENT CHARTED. PROVIDED CARE ORDERED. PT CURRENTLY WAITING BED PLACEMENT FOR FACILITY. TO RECIEVE DIALYSIS TODAY. NO CHANGE IN STATUS. VSS. WILL CONTINUE TO MONITOR.
[2018-05-31 20:34] VITALS: BP 156/96
[2018-06-01 04:31] VITALS: BP 119/73
--- NOTE | 2018-06-01 04:59 | NUR ---
sat in chair for half of the night, now is in bed. she has been resting well tonight. careplan reviewed. progressing toward discharge
[2018-06-01 07:10] VITALS: BP 143/87
--- NOTE | 2018-06-01 10:11 | NUR ---
DISCHARGE PLANNING. UPDATED CLINICAL INFORMATION FAXED TO [facility] FOR PATIENTS DISCHARGE PLACEMENT PLAN. VERIFIED INFORMATION RECEIVED. [facility] ACC[facility]PTING OF PATIENT AT DISCHARGE, PENDING BED AVAILABILITY. FOLLOWING TO ASSIST WITH DISCHARGE PLACEMENT NEEDS. UNIT CM/SW AWARE.
--- NOTE | 2018-06-01 11:40 | NUR ---
Nutrition: Admitted for sepsis. Seen for f/u. Wounds present including perirectal abcess, unstageable right heel p/u. Hx of diverting colostomy, ESRD. PCM noted per physician, defer. Previous intake was poor, but appetite has since improved eating most of meals for last few days. Communicated understanding the need for protein. Reported UBW up and down last few months. D/C planned, waiting on placement. Moving to low nutrition risk.
[2018-06-01 12:00] VITALS: BP 117/67
--- NOTE | 2018-06-01 14:19 | NUR ---
WOUND FOLLOW UP: PT. WAS SEEN TODAY BY DR. PARNELL AND MYSELF. PT. HAS NOT COMPLAINTS TODAY POST DRAIN REMOVAL. RECOMMENDATIONS: CONTINUE WITH CURRENT PLAN OF CARE. PT. AND STAFF NURSE WERE INSTRUCTED ON PLAN OF CARE.
--- NOTE | 2018-06-01 16:13 | NUR ---
SW reviewed chart and spoke with nursing and attending physician. Pt is medically stable for discharge to [facility]. SW discussed with [facility] liaison who states they do not have a bed for pt today. meeting planner faxed updated clinical info to [facility] liaison for review. MARLEN is following to assist as needed with discharge planning.
[2018-06-01 17:10] VITALS: BP 149/87
[2018-06-01 19:13] VITALS: BP 127/79
[2018-06-02 04:07] VITALS: BP 142/90
[2018-06-02 05:55] LABS: HEMATOCRIT 26.3 % (37.0-47.0); HEMOGLOBIN 8.4 gm/dL (12.0-15.0); MCH 28.9 pg (26.0-34.0); MCHC 32.1 g/dL (28.0-37.0); MCV 90.1 fL (80.0-100.0); RBC 2.92 mil/uL (4.20-5.00); RDW 18.3 % (10.5-14.5); WBC 7.9 thou/uL (4.0-11.0)
--- NOTE | 2018-06-02 06:03 | NUR ---
PT MAKING POOR PROGRESS TOWARDS GOALS. PT FREQUENTLY REPORTS QWEASINESS. HAS SCHEDULED REGLAN AND PRN. DID GIVE PRN DOSE ONCE. PT RELUCTANT TO TAKE PO PAIN MEDICATIONS DUE TO REPORTS OF FEELING QWEASY/NAUSEATED. X2 DOSES OF IV PAIN MEDICATION GIVEN WITH MINIMAL RELIEF. ENCOURAGED PO PAIN MEDICATION BUT REFUSED PER REASON STATED ABOVE.
[2018-06-02 06:13] LABS: CALCIUM 8.1 mg/dL (8.5-10.1); CREATININE 3.7 mg/dL (0.6-1.0); POTASSIUM 4.7 mmol/L (3.5-5.1)
[2018-06-02 07:07] VITALS: BP 152/90
[2018-06-02 11:28] VITALS: BP 126/76
[2018-06-02 15:38] VITALS: BP 102/59
--- NOTE | 2018-06-02 16:03 | NUR ---
MARLEN reviewed chart and spoke with nursing and attending physician. MARLEN discussed case with [facility] liaison who states that pt does not meet LTAC criteria any longer, due to being almost done with course of IV abx (vanco) through her colostomy. Pt will be done with vanco on Tuesday, 06/04. MARLEN spoke with pt's spouse via phone to provide update and discuss discharge plan. SW explained that pt no longer meets LTAC criteria and pt's care can be met at the SNF level. Pt's spouse requests pt to return to [facility]. project planner faxed clinical info. [facility] is able to accept pt back. Discharge is anticipated for Tuesday, 06/05. MARLEN updated pt's spouse via phone, who is agreeable with discharge plan. MARLEN is following to assist as needed with discharge planning.
[2018-06-02 19:30] VITALS: BP 118/67
--- NOTE | 2018-06-02 20:09 | NUR ---
PATIENT ALERT AND ORIENTED. PATIENT ASSISTS WITH COLOSTOMY CARE AND VANCOMYCIN IRRIGATION. PATIENT ABLE TO SHIFT HER BODY FROM SIDE TO SIDE BUT WILL ASK FOR ASSISTANCE WITH POSITIONING. PATIENT TOLERATED DIAYSIS WELL TODAY MAINTAINING HER BLOOD PRESSURE WITH 2 LITERS OF FLUID OFF. ANTICIPAING DISCHARGE TO LTAC BUT WAITING ON BED. DISCHARGE PACKET IS IN PATIENT TALENT COORDINATOR OUTSIDE ROOM.
[2018-06-03 03:45] VITALS: BP 113/68
--- NOTE | 2018-06-03 08:00 | NUR ---
PT MAKING SLOW PROGRESS TOWARDS GOALS. X2 DOSES OF DILAUDID GIVEN OVERNIGHT FOR COMPLAINTS OF PAIN BACK/RECTUM. OFFERED BUT PT REFUSED TO TAKE PO PAIN MEDICATIONS. SEE CHARTING.
[2018-06-03 08:45] VITALS: BP 124/77
[2018-06-03 11:52] VITALS: BP 112/68
[2018-06-03 19:30] VITALS: BP 127/79
--- NOTE | 2018-06-03 19:48 | NUR ---
PATIENT ALERT AND ORIENTED AND COOPERATIVE WITH TREATMENT PLAN. PATIENT SISTER AT BEDSIDE THIS AFTERNOON. PATIENT PREFERS IV PAIN MED OVER ORAL PAIN MED AND REQUESTS PAIN SOON SHE CAN RECEIVE IT. PATIENT TOLERATES VANCO OSTOMY FLUSHES AND WOUND TREATMENTS WELL. PATIENT TURNS SELF IN BED BUT ASKS FOR ASSISTANCE FOR ARRANGING PILLOWS. PATIENT UP TO CHAIR FOR SEVERAL HOURS THIS AFTERNOON.
[2018-06-04 00:45] VITALS: BP 143/81
[2018-06-04 07:30] VITALS: BP 139/88
--- NOTE | 2018-06-04 07:34 | NUR ---
PT MAKING SLOW PROGRESS TOWARDS GOALS. X2 DOSES OF DILAUDID FOR 9/10 PAIN BACK/RECTUM. PT REPORTS ONLY MILD RELIEF, DOWN TO 6-7/10 POST DOSING. NO REQUESTS FOR PRN ANTIEMETICS. PT DID HAVE HER SISTER VISIT LAST NIGHT. DID INFORM THE SISTER OF THE NEED FOR PPE IN REGARDS TO THE PATIENTS SITUAION. THE SISTER REPLIED "I GOT YOU," BUT DID NOT PUT ON ANY PPE.
[2018-06-04 11:45] VITALS: BP 121/68
[2018-06-04 16:28] VITALS: BP 143/84
--- NOTE | 2018-06-04 20:30 | NUR ---
PATIENT ALERT AND ORIENTED AND PLEASAND BUT NEEDY REQUESTING ITEMS THAT SHE CAN COMPLETE HERSELF AND AT TIME TEARFUL. PATIENT HAD TWO EPISODES OF HYPOGLYCEMIA WHICH WERE CALLED TO DR FAULKNER AND TREATED AND STABILIZED BLOOD SUGARS. PATIENT ANTICIPATING DISCHARGE TOMORROW, INDICATING SHE WILL BE GOING TO [facility]. NEED TO CONFIRM DISCHARGE TIME AND LOCATION WITH CASE MANAGEMENT.
[2018-06-04 20:55] VITALS: BP 121/73
[2018-06-05 03:25] VITALS: BP 121/73
--- NOTE | 2018-06-05 04:56 | NUR ---
ASSUMED CARE OF PT AT 1900. A&Ox4, COOPERATIVE. VS STABLE, SR ON TELE. C/O PAIN IN LOWER BACK AND SACRUM, PRN MEDS GIVEN W/ PARTIAL RELIEF. GLUCOSE WAS ELEVATED. CONTACTED , D5 DC'D. INSULIN GIVEN ORDERED. GLUCOSE WAS 199 ON LAST CHECK DOCUMENTED. CURRENTLY RESTING IN BED. NO ACUTE DISTRESS. EXPECTING TO BE DC'D TODAY. PROGRESSING TOWARD POC.
[2018-06-05 07:00] VITALS: BP 112/71
--- NOTE | 2018-06-05 13:06 | NUR ---
patient to discharge today to [facility], pickup van at 2:30 pm, cc ordered and dc papers will be sent to facility and given to payroll secretary for cc. DP called patient's and let him know the time, unit was notified of the pickup time.
[2018-06-05] MEDS ORDERED: DILAUDID 2 MG TA2 MG PO (13:12)
--- NOTE | 2018-06-05 13:57 | NUR ---
READY FOR D/C TODAY TO [facility]. [id number] VERY PLEASANT AND COOPERATIVE. SILVADENE TO RECTAL WOUND, WOUND PINK AND CLEAN WITH GRANULATION TISSUE PRESENT. LEFT CHEST DOUBLE LUMEN CENTRAL LINE INTACT AND BOTH PORTS FLUSH WELL - DRESSING DRY AND INTACT. DIALYSIS COMPLETED. COLOSTOMY WITH LIQUID YELLOW STOOL OUTPUT - LARGE PINK STOMA. GOOD APPETITE. REMAINS ON ROOM AIR. NSR ON MONITOR. GOOD PAIN RELIEF WITH HYDOMORPHONE.
== END 2018-06-05 14:25 | DRG 871 ==
LOC: ER 10:34 → 3W 13:14 → ICU 13:14 → EROBS 13:14 → 2N 14:42 → ICU 16:09 → 3W 05-20 00:30
PROVIDERS: Internal Medicine; Internal Medicine Endocrinology, Diabetes & Metabolism; Internal Medicine Nephrology; Nurse Practitioner; Nurse Practitioner Family; Specialist; ADMIT Internal Medicine
PROC: 5A1D70Z Performance of Urinary Filtration, Intermittent, Less than 6 Hours Per Day (ICD-10-PCS; principal; 2018-05-17)
PROC: 5A1D70Z Performance of Urinary Filtration, Intermittent, Less than 6 Hours Per Day (ICD-10-PCS; 2018-05-18)
PROC: 5A1D70Z Performance of Urinary Filtration, Intermittent, Less than 6 Hours Per Day (ICD-10-PCS; 2018-05-19)
PROC: 5A1D70Z Performance of Urinary Filtration, Intermittent, Less than 6 Hours Per Day (ICD-10-PCS; 2018-05-20)
PROC: 30233N1 Transfusion of Nonautologous Red Blood Cells into Peripheral Vein, Percutaneous Approach (ICD-10-PCS; 2018-05-22)
PROC: 5A1D70Z Performance of Urinary Filtration, Intermittent, Less than 6 Hours Per Day (ICD-10-PCS; 2018-05-22)
PROC: 5A1D70Z Performance of Urinary Filtration, Intermittent, Less than 6 Hours Per Day (ICD-10-PCS; 2018-05-24)
PROC: 5A1D70Z Performance of Urinary Filtration, Intermittent, Less than 6 Hours Per Day (ICD-10-PCS; 2018-05-26)
PROC: 5A1D70Z Performance of Urinary Filtration, Intermittent, Less than 6 Hours Per Day (ICD-10-PCS; 2018-05-29)
PROC: 5A1D70Z Performance of Urinary Filtration, Intermittent, Less than 6 Hours Per Day (ICD-10-PCS; 2018-05-31)
PROC: 5A1D70Z Performance of Urinary Filtration, Intermittent, Less than 6 Hours Per Day (ICD-10-PCS; 2018-06-02)
PROC: 5A1D70Z Performance of Urinary Filtration, Intermittent, Less than 6 Hours Per Day (ICD-10-PCS; 2018-06-05)
DX: A41.50 Gram-negative sepsis, unspecified (principal); N18.6 End stage renal disease; E43 Unspecified severe protein-calorie malnutrition; J96.90 Respiratory failure, unspecified, unspecified whether with hypoxia or hypercapnia; I12.0 Hypertensive chronic kidney disease with stage 5 chronic kidney disease or end stage renal disease; A04.72 Enterocolitis due to Clostridium difficile, not specified as recurrent; E10.22 Type 1 diabetes mellitus with diabetic chronic kidney disease; E10.319 Type 1 diabetes mellitus with unspecified diabetic retinopathy without macular edema; L97.519 Non-pressure chronic ulcer of other part of right foot with unspecified severity; D63.1 Anemia in chronic kidney disease; D69.6 Thrombocytopenia, unspecified; K60.4 Rectal fistula; E10.65 Type 1 diabetes mellitus with hyperglycemia; K21.9 Gastro-esophageal reflux disease without esophagitis; L89.152 Pressure ulcer of sacral region, stage 2; E10.43 Type 1 diabetes mellitus with diabetic autonomic (poly)neuropathy; E10.621 Type 1 diabetes mellitus with foot ulcer; K31.84 Gastroparesis; E87.6 Hypokalemia; Z93.3 Colostomy status; Z99.2 Dependence on renal dialysis; Z87.11 Personal history of peptic ulcer disease; Z79.4 Long term (current) use of insulin; Z91.14 Patient's other noncompliance with medication regimen; Z68.20 Body mass index [BMI] 20.0-20.9, adult; Z79.899 Other long term (current) drug therapy; Z88.6 Allergy status to analgesic agent; Z88.0 Allergy status to penicillin; Z88.1 Allergy status to other antibiotic agents; Z91.041 Radiographic dye allergy status; Z88.8 Allergy status to other drugs, medicaments and biological substances; Z91.048 Other nonmedicinal substance allergy status; Z84.1 Family history of disorders of kidney and ureter; Z83.3 Family history of diabetes mellitus; Z23 Encounter for immunization; R65.20 Severe sepsis without septic shock
CPT/HCPCS: 10078; 10879; 32100

== ENCOUNTER 2018-06-13 15:30 | Emergency (ER) | payer MEDICARE ==
[~2018-06-13] VITALS: Ht 149.9 cm; Wt 52.2 kg
[~2018-06-13 15:30] MED LIST changes: +BENADRYL25 MG PO; +DILAUDID 2 MG TA2 MG PO; +ERYPED 200200 MG/51 PO; +LASIX 80 MG TAB80 MG PO; +LOPRESSOR25 PO; +MEROPENEM500 MG IV; +MORPHINE 110 MG/1 ML SUBLING; +OXYCODONE HCL10 MG PO; +REGLAN 5 MG TAB5 MG PO; +SYMBICORT80 MCG/4.1 INH; +TRULICITY0.75 MG/0. SUBQ; +VANCO IRRIG; +VENTOLIN HFA 1818 GM INH
[2018-06-13 15:50] LABS: ABSOLUTE NEUTROPHILS 12.3 thou/uL (1.4-8.2); BASOPHILS 0.3 % (0.0-2.0); EOSINOPHILS 0.1 % (0.0-3.0); HEMATOCRIT 25.7 % (37.0-47.0); HEMOGLOBIN 8.2 gm/dL (12.0-15.0); LYMPHOCYTES 1.5 % (24.0-44.0); MCH 29.1 pg (26.0-34.0); MCHC 31.8 g/dL (28.0-37.0); MCV 91.3 fL (80.0-100.0); MONOCYTES 0.6 % (1.0-8.0); PLATELET COUNT 246 thou/uL (150-400); POLYS 97.5 % (36.0-66.0); RBC 2.81 mil/uL (4.20-5.00); RDW 19.4 % (10.5-14.5); WBC 12.6 thou/uL (4.0-11.0)
[2018-06-13 16:00] LABS: CALCIUM 8.3 mg/dL (8.5-10.1); CREATININE 4.9 mg/dL (0.6-1.0); POTASSIUM 3.3 mmol/L (3.5-5.1)
[2018-06-13 16:06] LABS: ALBUMIN 2.1 g/dL (3.4-5.0); TOTAL BILIRUBIN 0.4 mg/dL (<0.1-1.0)
[2018-06-13 19:15] VITALS: BP 92/46
== END 2018-06-13 19:34 | disposition home or self-care (01) ==
LOC: ER 15:30
PROVIDERS: Emergency Medicine
DX: E86.0 Dehydration (principal); R50.9 Fever, unspecified; E11.42 Type 2 diabetes mellitus with diabetic polyneuropathy; E11.22 Type 2 diabetes mellitus with diabetic chronic kidney disease; I12.0 Hypertensive chronic kidney disease with stage 5 chronic kidney disease or end stage renal disease; N18.6 End stage renal disease; Z99.2 Dependence on renal dialysis; G89.29 Other chronic pain; Z87.11 Personal history of peptic ulcer disease; Z98.51 Tubal ligation status; Z79.4 Long term (current) use of insulin; Z88.1 Allergy status to other antibiotic agents; Z88.6 Allergy status to analgesic agent; Z88.8 Allergy status to other drugs, medicaments and biological substances